=== PATIENT | female | born 1970 ===

== ENCOUNTER → 2019-11-22 14:32 | Outpatient (BNVA) | payer MEDICAID, SELFPAY | PROVIDERS: Visit Provider Physician Assistant | DX: K90.49 Malabsorption due to intolerance, not elsewhere classified (principal); Z98.84 Bariatric surgery status | CPT/HCPCS: 99215; Q3014 ==

== ENCOUNTER → 2019-12-12 08:26 | Outpatient (BNVA) | payer MEDICAID, SELFPAY | PROVIDERS: Visit Provider Dietitian, Registered | DX: Z76.89 Persons encountering health services in other specified circumstances (principal) ==

== ENCOUNTER 2020-04-12 08:46 | Outpatient (REF) | payer MEDICAID, SELFPAY ==
--- NOTE | 2020-04-12 09:00 | EMG_ITS ---
Bilateral median and ulnar motor and sensory studies were performed. Bilateral radial sensory studies were performed and paraspinal muscles were tested with a needle. IMPRESSION: This was an unremarkable study with no evidence of entrapment neuropathy or radiculopathy. MD THIERNO Steele/[place] / [id number]
== END 2020-04-12 08:47 | disposition home or self-care (01) ==
LOC: HO.NEURO 08:46
PROVIDERS: PCP Internal Medicine; Visit Provider Internal Medicine
DX: M79.641 Pain in right hand (principal); M79.642 Pain in left hand
CPT/HCPCS: 95886; 95911

== ENCOUNTER → 2020-11-01 12:42 | Outpatient (BNVA) | payer MEDICAID, SELFPAY | PROVIDERS: PCP Internal Medicine; Referring Provider Surgery; Visit Provider Physician Assistant Surgical | DX: E66.01 Morbid (severe) obesity due to excess calories (principal); Z68.41 Body mass index [BMI] 40.0-44.9, adult; Z98.84 Bariatric surgery status | CPT/HCPCS: 99212 ==

== ENCOUNTER 2020-11-19 12:52 | Outpatient (REF) | payer MEDICAID, SELFPAY ==
--- NOTE | ~2020-11-19 | US_ITS ---
EXAMINATION: US PELVIS CLINICAL INFORMATION: Right lower quadrant tenderness. Patient is post hysterectomy. COMPARISON: Previous exam most recent November 2018 TECHNIQUE: Ultrasound of the pelvis is performed using both transabdominal and transvaginal transducers. Transvaginal imaging is performed due to inadequate visualization transabdominally. FINDINGS: The uterus has been removed. The ovaries are not seen. No pelvic mass is seen. There is no ascites. US/US pelvic and transvaginal IMPRESSION: Post hysterectomy. Ovaries not seen. No pelvic mass or ascites.
== END 2020-11-19 12:53 | disposition home or self-care (01) ==
LOC: HO.US 12:52
PROVIDERS: PCP Internal Medicine; Visit Provider Advanced Practice Midwife
DX: R10.813 Right lower quadrant abdominal tenderness (principal)
CPT/HCPCS: 76830; 76856

== ENCOUNTER 2020-12-05 08:52 | Outpatient (REF) | payer MEDICAID, SELFPAY ==
--- NOTE | ~2020-12-05 | MM_ITS ---
EXAMINATION: MM SCREENING DIGITAL BREAST TOMOSYNTHESIS, BILATERAL CLINICAL INFORMATION: Screening. Asymptomatic. The lifetime risk of breast cancer based on the Tyrer-Cuzick Model is 8%. COMPARISON: Mammography: 01/26/2017 (new baseline). TECHNIQUE: Digital breast tomosynthesis is performed in both the craniocaudal and mediolateral oblique views along with computer-aided detection (CAD). Synthesized 2D images are generated from the tomosynthesis. FINDINGS: There are scattered areas of fibroglandular density (ACR BI-RADS breast composition Category b). There are no significant masses, abnormal calcifications, or other abnormalities. The axilla and skin contours are unremarkable. MM/MM tomosynthesis screening BI IMPRESSION: No mammographic evidence of malignancy. ASSESSMENT: BI-RADS 1: Negative RECOMMENDATION: Routine annual mammography screening. This patient's information was entered into a reminder system with a target due date for their next mammogram.
== END 2020-12-05 08:53 | disposition home or self-care (01) ==
LOC: HO.MAMMO 08:52
PROVIDERS: Visit Provider Advanced Practice Midwife
DX: Z12.31 Encounter for screening mammogram for malignant neoplasm of breast (principal); R10.813 Right lower quadrant abdominal tenderness
CPT/HCPCS: 77063; 77067

== ENCOUNTER → 2020-12-25 14:20 | Outpatient (BNVA) | payer MEDICAID, SELFPAY | PROVIDERS: PCP Internal Medicine; Referring Provider Internal Medicine; Visit Provider Physician Assistant Surgical | DX: E66.9 Obesity, unspecified (principal); Z3A.34 34 weeks gestation of pregnancy | CPT/HCPCS: 99212 ==

== ENCOUNTER → 2021-01-29 10:33 | Outpatient (BNVA) | payer MEDICAID, SELFPAY | PROVIDERS: PCP Internal Medicine; Visit Provider Nurse Practitioner Family | DX: M54.2 Cervicalgia (principal); M79.18 Myalgia, other site | CPT/HCPCS: 99202 ==

== ENCOUNTER 2021-02-04 09:55 | Outpatient (REF) | payer MEDICAID, SELFPAY ==
--- NOTE | ~2021-02-04 | XR_ITS ---
EXAMINATION: XR HAND, LEFT CLINICAL INFORMATION: Pain in left hand and fingers COMPARISON: None TECHNIQUE: PA, lateral, and oblique views of the left hand. FINDINGS: The bones and soft tissues are normal. No fracture. Alignment is anatomic. Joint spaces are maintained. No erosions or soft tissue calcifications. XR/XR hand LT min 3V IMPRESSION: Unremarkable plain radiographs of the left hand.
== END 2021-02-04 09:56 | disposition home or self-care (01) ==
LOC: HO.XRAY 09:55
PROVIDERS: Visit Provider Internal Medicine
DX: M79.645 Pain in left finger(s) (principal)
CPT/HCPCS: 73130

== ENCOUNTER → 2021-04-19 11:07 | Outpatient (BNVA) | payer MEDICAID, SELFPAY | PROVIDERS: PCP Internal Medicine; Visit Provider Nurse Practitioner Family | DX: M54.2 Cervicalgia (principal); M79.18 Myalgia, other site | CPT/HCPCS: 20552; 99212 ==

== ENCOUNTER 2021-05-22 08:17 | Outpatient (REF) | payer MEDICAID, SELFPAY ==
--- NOTE | 2021-05-22 08:20 | EMG_ITS ---
This is a 50-year-old woman with generalized pain, numbness, tingling in the left upper and lower extremity only for few months. She has been undergoing medical and rheumatological workup. Neurological exam is normal. IMPRESSION: Rule out neuropathy. Nerve conduction EMG study: Normal electrodiagnostic study of the left upper and lower extremity with no evidence of carpal tunnel syndrome, nerve entrapment, or generalized peripheral neuropathy. The patient refused needle EMG study after the 1st muscle was tested in the L4 distribution. MD KIEL Anthony/[place] / [phone]
== END 2021-05-22 08:18 | disposition home or self-care (01) ==
LOC: HO.NEURO 08:17
PROVIDERS: PCP Family Medicine; Visit Provider Family Medicine
DX: R20.2 Paresthesia of skin (principal)
CPT/HCPCS: 95885; 95912

== ENCOUNTER → 2021-10-25 14:17 | Outpatient (BNVA) | payer MEDICAID, SELFPAY | PROVIDERS: PCP Internal Medicine; Visit Provider Nurse Practitioner | DX: R10.10 Upper abdominal pain, unspecified (principal); R11.2 Nausea with vomiting, unspecified; R19.7 Diarrhea, unspecified; K80.20 Calculus of gallbladder without cholecystitis without obstruction; K58.2 Mixed irritable bowel syndrome | CPT/HCPCS: 99202; 99212 ==

== ENCOUNTER 2021-10-28 09:00 | Outpatient (REF) | payer MEDICAID, SELFPAY ==
[2021-10-28 09:15] LABS: MANUAL DIFF FLAG NO
[2021-10-28 09:36] LABS: Basophils Absolute Auto 0.1 X10*3/uL (0.0-0.2); Eosinophils Absolute Auto 0.1 X10*3/uL (0.0-0.4); Eosinophils Percent Auto 2.4 % (0-4); Hematocrit 42.5 % (37.0-47.0); Hemoglobin 13.7 g/dl (12.0-16.0); Imm Gran Abs Auto 0.01 X10*3/uL (0.00-0.03); Imm Gran Pct Auto 0.2 % (0.0-0.4); Lymphocytes Absolute Auto 1.9 X10*3/uL (1.2-4.9); Lymphocytes Percent Auto 32.8 % (20-40); Mean Corpuscular HGB Conc 32.2 g/dl (31.0-35.0); Mean Corpuscular Hemoglobin 30.3 pg (27.0-33.0); Mean Platelet Volume 10.2 fL (9.4-12.3); Monocytes Absolute Auto 0.4 X10*3/uL (0.1-1.2); Monocytes Percent Auto 6.5 % (2-11); Neutrophils Absolute Auto 3.3 x10*3/uL (2.0-8.3); Neutrophils Percent Auto 57.1 % (45-73); Platelet Count 241 X10*3/uL (160-400); Red Blood Count 4.52 X10*6/uL (4.20-5.50); Red Cell Distribution Width 12.6 % (11.0-16.0); White Blood Count 5.8 X10*3/uL (4.8-10.8)
[2021-10-28 10:02] LABS: Alanine Aminotransferase 23 U/L (0-31); Albumin Level 4.2 g/dL (3.5-5.0); Alkaline Phosphatase 101 U/L (39-117); Amylase 61 U/L (28-100); Anion Gap 15 (12-20); Aspartate Amino Transferase 17 U/L (5-31); Bilirubin Total 1.2 mg/dL (0.0-1.0); Blood Urea Nitrogen 14 mg/dL (9-16); Calcium 9.6 mg/dL (8.4-10.2); Carbon Dioxide 30 mmol/L (22-29); Chloride 107 mmol/L (96-108); Estimated Glomerular Filt Rate > 60; Glucose Random 126 mg/dL (60-115); Lipase 43 U/L (8-78); Potassium 4.5 mmol/L (3.3-5.1); Sodium 147 mmol/L (135-145); Total Protein 7.2 g/dL (6.5-8.0)
[2021-10-28 10:25] LABS: TSH reflex Free T4 0.85 uIU/mL (0.32-4.0)
[2021-10-30 21:07] LABS: Transglutaminase Ab IgG 1.5 U/mL; Transglutaminase IgA <1.0 U/mL
== END 2021-10-28 09:01 | disposition home or self-care (01) ==
LOC: HO.LAB 09:00
PROVIDERS: PCP Internal Medicine; Visit Provider Nurse Practitioner
DX: R10.10 Upper abdominal pain, unspecified (principal); R11.2 Nausea with vomiting, unspecified; R19.7 Diarrhea, unspecified
CPT/HCPCS: 36415; 80053; 82150; 83690; 84443; 85025; 86140; 86364

== ENCOUNTER 2021-10-29 15:30 | Outpatient (REF) | payer MEDICAID, SELFPAY ==
[2021-10-30 12:34] LABS: Adenovirus F 40/41 Not Detected (Not Detect.); Astrovirus Not Detected (Not Detect.); Campylobacter Not Detected (Not Detect.); Cryptosporidium Not Detected (Not Detect.); Cyclospora cayetanensis Not Detected (Not Detect.); E. coli EAEC Not Detected (Not Detect.); E. coli EPEC Not Detected (Not Detect.); E. coli ETEC Not Detected (Not Detect.); E. coli STEC Not Detected (Not Detect.); Entamoeba histolytica Not Detected (Not Detect.); Giardia lamblia Not Detected (Not Detect.); Norovirus GI/GII Not Detected (Not Detect.); Plesiomonas shigelloides Not Detected (Not Detect.); Rotavirus A Not Detected (Not Detect.); Salmonella Not Detected (Not Detect.); Sapovirus Not Detected (Not Detect.); Shigella sp./EIEC Not Detected (Not Detect.); Vibrio Not Detected (Not Detect.); Vibrio Cholerae Not Detected (Not Detect.); Yersinia enterocolitica Not Detected (Not Detect.)
[2021-10-30 13:18] LABS: CDiff Gene PCR NEGATIVE (Negative)
[2021-11-05 18:11] LABS: Pancreatic Elastase-1 >500 mcg/g
== END 2021-10-29 15:31 | disposition home or self-care (01) ==
LOC: HO.LNP 15:30
PROVIDERS: Visit Provider Nurse Practitioner
DX: R10.10 Upper abdominal pain, unspecified (principal); R11.2 Nausea with vomiting, unspecified; R19.7 Diarrhea, unspecified
CPT/HCPCS: 82656; 87493; 87507

== ENCOUNTER → 2021-10-31 11:12 | Outpatient (BNVA) | payer MEDICAID, SELFPAY | PROVIDERS: PCP Internal Medicine; Visit Provider Physician Assistant Surgical | DX: E66.9 Obesity, unspecified (principal); Z98.84 Bariatric surgery status; Z68.32 Body mass index [BMI] 32.0-32.9, adult | CPT/HCPCS: 99212 ==

== ENCOUNTER → 2021-11-11 10:57 | Outpatient (REF) | payer MEDICAID, SELFPAY ==
--- NOTE | ~2021-11-11 | NM_ITS ---
EXAMINATION: BILIARY TRACT IMAGING STUDY WITH CCK ALTERNATIVE (SUPPLEMENT-STIMULATED CHOLESCINTIGRAPHY). CLINICAL INFORMATION: Upper abdominal pain.. COMPARISON: None. TECHNIQUE: Serial gamma scintillation camera images were obtained over the abdomen for a total observation period of 60 minutes following the intravenous administration of 5 mCi Tc-99m mebrofenin. FINDINGS: There is good concentration of activity in the liver by 5 minutes post injection. Biliary activity is visualized by 15 minutes. The gallbladder is well visualized by 25 minutes. Small bowel is well visualized by 18 minutes. At 60 minutes post radiopharmaceutical injection, following injection of 8 ounces of Ensure, an additional 60 minutes of images were obtained. There is good emptying of the gallbladder. By the end of the study there is good clearance of activity from the liver and visualization of diffuse small bowel activity. The calculated gallbladder ejection fraction is 66% (normal gallbladder ejection fraction is greater than 33%). Please note that due to non-availability of CCK, alternative methodology using a lactose-free Fatty-meal food supplement (8 ounces of Ensure) was used (Reference article: Journal of nuclear medicine 2003; 44:7800-7352). NM/NM hepatobiliary wo pharm IMPRESSION: Visualization of the gallbladder is evidence of a patent cystic duct and strong evidence against the diagnosis of acute cholecystitis. The common bile duct is patent. Gallbladder emptying and ejection fraction are normal. Liver function appears normal.
== END ==
LOC: HO.NUCMED 10:57
PROVIDERS: PCP Internal Medicine; Visit Provider Nurse Practitioner
DX: R10.10 Upper abdominal pain, unspecified (principal); K80.20 Calculus of gallbladder without cholecystitis without obstruction
CPT/HCPCS: 78226; A9537

== ENCOUNTER → 2021-11-20 13:31 | Outpatient (BNVA) | payer MEDICAID, SELFPAY | PROVIDERS: PCP Internal Medicine; Visit Provider Nurse Practitioner | DX: K58.2 Mixed irritable bowel syndrome (principal); K80.20 Calculus of gallbladder without cholecystitis without obstruction; R19.7 Diarrhea, unspecified; R11.2 Nausea with vomiting, unspecified; R10.10 Upper abdominal pain, unspecified | CPT/HCPCS: 99212 ==

== ENCOUNTER → 2021-12-25 11:13 | Outpatient (BNVA) | payer MEDICAID, SELFPAY | PROVIDERS: PCP Internal Medicine; Visit Provider Physician Assistant Surgical | DX: E66.9 Obesity, unspecified (principal); Z68.33 Body mass index [BMI] 33.0-33.9, adult; Z98.84 Bariatric surgery status | CPT/HCPCS: 99212 ==

== ENCOUNTER 2022-01-01 12:39 | Outpatient (REF) | payer MEDICAID, SELFPAY ==
--- NOTE | ~2022-01-01 | XR_ITS ---
EXAMINATION: XR SHOULDER, RIGHT CLINICAL INFORMATION: Right shoulder pain, limited range of motion. COMPARISON: None TECHNIQUE: AP external rotation, Grashey, scapular Y, and axillary views of the right shoulder. FINDINGS: The bones and soft tissues are normal. No fracture. Glenohumeral and acromioclavicular alignment is anatomic with normal joint space. No abnormal soft tissue calcifications. XR/XR shoulder RT min 2V IMPRESSION: Unremarkable right shoulder.
[2022-01-01 14:55] LABS: Ferritin 45 ng/mL (10-250); Insulin 4 uU/mL (2-29)
[2022-01-01 15:03] LABS: Cholesterol 207 mg/dL; HDL Cholesterol 51 mg/dL; Iron 109 mcg/dL (30-160); LDL Cholesterol Calculated 144 mg/dl; Percent Iron Saturation 33 % (15-50); Total Iron Binding Capacity 330 mcg/dL (228-428); Triglycerides 63 mg/dL; Unsaturated Iron Binding 221 ug/dL
[2022-01-01 15:29] LABS: Folate > 20.0 ng/mL (> or = 4.0); Vitamin B12 380 pg/mL (200-900)
[2022-01-01 15:35] LABS: Vitamin D 25-OH Total 27.7 ng/mL (>30)
[2022-01-01 16:10] LABS: Estimated Average Glucose 128 mg/dL; Hemoglobin A1c % 6.1 %
[2022-01-02 14:16] LABS: Calcium (PTHI) 9.6 mg/dL (8.6-10.4); PTHI 53 pg/mL (16-77)
[2022-01-05 17:15] LABS: Vitamin A 37 mcg/dL (38-98)
[2022-01-06 09:47] LABS: Zinc 89 mcg/dL (60-130)
[2022-01-07 11:52] LABS: Vitamin B1 13 nmol/L (8-30)
== END 2022-01-01 12:40 | disposition home or self-care (01) ==
LOC: HO.XRAY 12:39
PROVIDERS: Absent Provider Internal Medicine; PCP Internal Medicine; Visit Provider Physician Assistant Surgical
DX: M25.511 Pain in right shoulder (principal); Z98.84 Bariatric surgery status
CPT/HCPCS: 36415; 73030; 80061; 82306; 82607; 82728; 82746; 83036; 83525; 83540; 83970; 84425; 84590; 84630

== ENCOUNTER → 2022-01-15 11:27 | Outpatient (BNVA) | payer MEDICAID, SELFPAY | PROVIDERS: PCP Internal Medicine; Visit Provider Nurse Practitioner | DX: K58.2 Mixed irritable bowel syndrome (principal); K80.20 Calculus of gallbladder without cholecystitis without obstruction; R11.2 Nausea with vomiting, unspecified | CPT/HCPCS: 99212 ==

== ENCOUNTER 2022-01-25 11:36 | Emergency (ER) | payer MEDICAID, SELFPAY ==
[2022-01-25 11:40] VITALS: BP 130/71; PULSE 80; RESP 18; O2SAT 98; BMI 34.0
--- NOTE | 2022-01-25 12:36 | ED_ITS ---
HPI - Back Pain/Injury General Chief Complaint: Back Pain/Injury Stated Complaint: back pain Time Seen by Provider: 01/25/22 11:49 Source: patient and family Mode of arrival: ambulatory Limitations: language barrier History of Present Illness HPI Narrative: 51-year-old Singaporean-speaking female with a past medical history of diabetes, irritable bowel syndrome, obesity, cervicalgia, and chronic low back pain presents to the emergency department today, with her , for complaints right sided low back pain that radiates down her right leg and into the right side of her neck. She states yesterday morning she was stretching with her arms above her head and felt pain in the right low back while stretching and she has had continued pain since. She reports taking 800 mg of ibuprofen at 10:30 a.m. with no relief in symptoms. She denies any known trauma, urinary hesitancy, urinary incontinence, fecal incontinence, or changes in her bowel patterns. She denies any fever, chills, new numbness, tingling, or weakness in her lower extremities. She reports pain improves with standing and worsens with leaning to sit. MD elicited complaint: back pain Pertinent past history: prior back pain Onset (ago): day(s) (2) Timing: constant Severity: moderate Pain scale (0-10): 6 Quality: dull and aching Location: right lower back Radiation: right upper leg and neck Exacerbating factors: movement (bending to sit or leaning to stand) Relieving factors: none Context: other (stretching) Associated symptoms: denies other symptoms Treatments prior to arrival: NSAIDS Work related injury: No Related Data Home Medications Medication Instructions Recorded Confirmed albuterol sulfate 90 mcg/actuation 2 puff inhalation QID 11/22/19 12/25/21 aerosol inhaler fluticasone propionate 50 1 spray intranasal DAILY 11/22/19 12/25/21 mcg/actuation nasal spray,suspension montelukast 10 mg tablet 10 mg PO BEDTIME 11/22/19 12/25/21 multivitamin 1 cap PO DAILY 11/22/19 12/25/21 gabapentin 600 mg tablet 600 mg PO DAILY 11/01/20 12/25/21 alcohol swabs pad topical BID 10/25/21 12/25/21 atorvastatin 40 mg tablet 40 mg PO DAILY 10/25/21 12/25/21 blood sugar diagnostic (FreeStyle #10 ea 10/25/21 12/25/21 Lite Strips) canagliflozin 100 mg tablet 100 mg PO QAM 10/25/21 12/25/21 (Invokana) cholecalciferol (vitamin D3) 50 50 mcg PO DAILY 10/25/21 12/25/21 mcg (2,000 unit) capsule ciprofloxacin 0.3 %-dexamethasone 0 drp otic (ears) 10/25/21 12/25/21 0.1 % ear drops,suspension (Ciprodex) cyclobenzaprine 10 mg tablet 10 mg PO TID 10/25/21 12/25/21 estradiol 0.01% (0.1 mg/gram) 1 g vaginal 2XW 10/25/21 12/25/21 vaginal cream famotidine 20 mg tablet 20 mg PO BID 10/25/21 12/25/21 fluticasone propionate 110 1 puff inhalation BID 10/25/21 12/25/21 mcg/actuation HFA aerosol inhaler (Flovent HFA) glipizide 5 mg tablet, extended 5 mg PO DAILY 10/25/21 12/25/21 release 24 hr hydrochlorothiazide 25 mg tablet 25 mg PO DAILY 10/25/21 12/25/21 lancets 28 gauge (FreeStyle #100 ea 10/25/21 12/25/21 Lancets) lorazepam 0.5 mg tablet 0.5 mg PO DAILY PRN anxiety 10/25/21 12/25/21 meclizine 25 mg tablet 25 mg PO TID PRN dizziness 10/25/21 12/25/21 metformin 500 mg tablet,extended 1,000 mg PO BID 10/25/21 12/25/21 release 24 hr polyvinyl alcohol 1.4 % eye drops 1 drp ophthalmic (eye) TID-QID 10/25/2112/25 (Artificial Tears (polyvinyl alcohol)) sumatriptan succinate 50 mg tablet 50 mg PO 10/25/21 12/25/21 valacyclovir 500 mg tablet 0 mg PO 10/25/21 12/25/21 diclofenac sodium 1 % topical gel 2 g topical QID 01/15/22 melatonin 5 mg tablet 5 - 10 mg PO BEDTIME PRN insomnia 01/15/22 venlafaxine 75 mg capsule,extended 75 mg PO DAILY PRN depressive 01/15/22 release 24 hr disorder Previous Rx's Medication Instructions Recorded lidocaine 5 % topical patch 1 patch topical DAILY #15 ea 04/22/21 peg 3350-electrolytes 236 240 ml PO Q10M 1 day #4,000 mL 11/20/21 gram-22.74 gram-6.74 gram-5.86 gram solution (Golytely) vitamin A palmitate 10,000 unit 10,000 unit PO DAILY #90 caps 01/13/22 capsule dicyclomine 20 mg tablet 20 mg PO QID 30 days #120 tabs 01/15/22 linaclotide 72 mcg capsule 72 mcg PO QAM #30 caps 01/15/22 (Linzess) capsaicin 0.025 % topical patch 1 patch topical BID PRN pain #10 ea 01/25/22 (Capsicum) cyclobenzaprine 5 mg tablet 5 mg PO TID PRN muscle spasm #14 01/25/22 tabs naproxen 500 mg tablet 500 mg PO BID PRN pain #30 tabs 01/25/22 Allergies Allergy/AdvReac Type Severity Reaction Status Date / Time Penicillins [PCN] Allergy Intermediate HIVES/RASH Verified 01/15/22 11:37 Mold Allergy Unknown Rash Uncoded 10/31/21 11:25 Review of Systems Review of Systems: In addition to documented HPI above, the additional ROS was obtained: CONSTITUTIONAL: Denies fever, chills, weakness, fatigue, headache, night sweats, or weight loss EYES: Denies vision changes, eye pain, swelling, redness, foreign body, discharge ENT: Hearing normal. Denies sore throat, swallowing difficulty. congestion, ear pain, no hoarseness or CV: Denies chest pain or epigastric pain. No edema, palpitations, or dyspnea on exertion RESP: Denies shortness of breath. Denies cough, wheezing, dyspnea. Denies smoke exposure GI: .Denies abdominal pain. Denies nausea, vomiting, constipation or diarrhea. No melena or hematochezia. : Denies irregular bleeding, and dysuria, urinary frequency, urinary incontinence/retention, urgency. Denies flank pain, hematuria MSK: Denies recent trauma, change in gait, myalgias, joint swelling or pain SKIN: Denies no lesions, rashes, or sores NEURO: Denies new numbness, tingling, dizziness, paresthesias or weakness. No loss of consciousness. Denies headache ENDOCRINE: Denies unexpected weight loss. Denies polyuria, polydipsia. No temperature intolerance PMFSH Past Medical History Attestation statement: The following information was validated with the patient. Source: old records reviewed and obtained from family Medical History Anxiety Arthritis Asthma delivery delivered Diabetes H/O neoplasm of uncertain behavior of ovary Heart murmur Left shoulder pain Malabsorption due to intolerance, not elsewhere classified Neck pain Obesity (BMI 30.0-34.9) Ovarian tumor Ovary removal, prophylactic Pelvic fracture Surgical History S/P laparoscopic sleeve gastrectomy S/P partial hysterectomy Family History Family History Father Hypertension Parkinson's disease Mother Hypertension Diabetes Heart murmur Depression Sister Diabetes Arthritis Son No problems noted. Son No problems noted. Maternal Grandmother Heart disease Social History Social History Alcohol intake: current Alcohol intake frequency: a few times a week Patient Tobacco Use Status: Former Tobacco user Cigarettes Per Day: 2 Advance Directives: No Advance Directives Information Provided: No Physical Exam Vital Signs: Vital Signs: Last Vital Signs Pulse 80 01/25/22 11:40 Resp 18 01/25/22 11:40 BP 130/71 01/25/22 11:40 Pulse Ox 98 01/25/22 11:40 O2 Del Method 01/25/22 11:40 BMI result Body Mass Index 34.0 Const: General: cooperative, alert and awake Nutritional Appearance: well nourished Orientation/consciousness: patient oriented x3 Limitations: language barrier HEENT: Head: Yes normal to inspection, Yes normocephalic and Yes atraumatic Ears: hearing grossly normal bilaterally and external ears normal General nose exam: Normal external nose present and Normal nares present Face and sinus: Yes normal facial exam and Yes face symmetric Eyes: General: appearance normal, both eyes and all related structures Visual Villarreal: normal visual villarreal by confrontation Alignment and Position: alignment normal Periorbital: periorbital findings normal Eyelids: Yes eyelids normal Conjunctivae: conjunctivae normal Sclerae: sclerae normal Corneas: corneas normal Pupils: Equal, round and reactive pupils present EOM: EOMs intact bilaterally Neck: Neck: Yes normal visual inspection and Yes full ROM Chest: Chest palpation & inspection: normal inspection of the chest Resp: Effort & Inspection: normal respiratory effort and not labored Auscultation: clear to auscultation bilaterally Cardio: Rate: regular rate Rhythm: regular rhythm : General: Yes no CVA tenderness Back/Spine/Pelvis: Back: no CVA tenderness, No erythema, No warmth, No ecchymosis and back tenderness Cervical Spine: cervical ROM normal Thoracic/Lumbar Spine: No kyphosis, pain with thoraco-lumbar ROM, No Thoracic/lumbar scoliosis and No lumbar spinal tenderness Skin: General skin exam: no rashes or lesions noted Neuro: General: patient oriented x3 and moves all extremities Cranial nerves: Yes Equal, round and reactive pupils present Cognition (Neuro): normal cognition Gait exam (Neuro): Antalgic gait present Motor exam (neuro): Normal motor muscle tone present throughout Extrem: General: Yes normal to inspection, Yes full ROM and Yes capillary refill normal Medications Administered Discontinued Medications Generic Name Dose Route Start Last Admin Trade Name Freq PRN Reason Stop Dose Admin Cyclobenzaprine HCl 5 mg 01/25/22 14:06 01/25/22 14:12 Cyclobenzaprine Hcl 5 Mg Tablet PO 01/25/22 14:07 5 mg ONCE ONE Administration Medical Decision Making Medical Decision Making [facility] Narrative: 51-year-old Singaporean-speaking female with a past medical history of diabetes, irritable bowel syndrome, obesity, cervicalgia, and chronic low back pain presents to the emergency department today, with her , for complaints right sided low back pain that started while stretching that radiates down her right leg and into the right side of her neck. Physical exam with no step-offs or red flag symptoms. Low back pain consistent with muscle strain. Low suspicion of cauda equina, epidural abscess, lumbar stenosis. Pt is safe for discharge with the symptom management. Prescriptions written for Flexeril, naproxen, and capsaicin topical patches. HPI, physical exam, plan discussed with patient and family with no answer questions at this time. Educated to return to the emergency department with new numbness, tingling, weakness, falls, fever, chills, or any other concerning symptoms. Recommended follow-up with her primary care provider for further treatment and management. 1400: Flexeril dose given in the ED for pain management prior to discharge. Discharge Plan Discharge Clinical Impression: Muscle strain Patient Disposition: Home, Self-Care Instructions: Musculoskeletal Pain (ED) Additional Instructions: Prescriptions written for Flexeril, naproxen, and capsaicin topical patches for symptom management. Please return to the emergency department with new numbness, tingling, weakness, falls, fever, chills, or any other concerning symptoms. Recommended to follow-up with her primary care provider for further treatment and management. Prescriptions: New capsaicin [Capsicum] 0.025 % adhesive patch,medicated 1 patch topical BID PRN (Reason: pain) Qty: 10 0RF Rx Instructions: do not leave patch on for more than 8 hrs cyclobenzaprine 5 mg tablet 5 mg PO TID PRN (Reason: muscle spasm) Qty: 14 0RF naproxen 500 mg tablet 500 mg PO BID PRN (Reason: pain) Qty: 30 0RF No Action lidocaine 5 % adhesive patch,medicated 1 patch topical DAILY Qty: 15 0RF Rx Instructions: leave on most painful area for up to 12 hrs vitamin A palmitate 10,000 unit capsule 10,000 unit PO DAILY Qty: 90 3RF fluticasone propionate 50 mcg/actuation spray,suspension 1 spray intranasal DAILY Rx Instructions: administer into each nostril albuterol sulfate 90 mcg/actuation HFA aerosol inhaler 2 puff inhalation QID montelukast 10 mg tablet 10 mg PO BEDTIME multivitamin Capsule 1 cap PO DAILY Label Comments: gummy gabapentin 600 mg tablet 600 mg PO DAILY peg 3350-electrolytes [Golytely] 236-22.74-6.74 -5.86 gram recon soln 240 ml PO Q10M 1 Days Qty: 4000 0RF Rx Instructions: until fecal effluent is clear; do not exceed a total volume of 2,000 mL diclofenac sodium 1 % gel 2 g topical QID melatonin 5 mg tablet 5 - 10 mg PO BEDTIME PRN (Reason: insomnia) venlafaxine 75 mg capsule,extended release 24hr 75 mg PO DAILY PRN (Reason: depressive disorder) Linzess 72 mcg capsule 72 mcg PO QAM Qty: 30 6RF dicyclomine 20 mg tablet 20 mg PO QID 30 Days Qty: 120 6RF glipizide 5 mg tablet extended release 24hr 5 mg PO DAILY ciprofloxacin-dexamethasone [Ciprodex] 0.3-0.1 % drops,suspension 0 drp otic (ears) meclizine 25 mg tablet 25 mg PO TID PRN (Reason: dizziness) metformin 500 mg tablet extended release 24 hr 1,000 mg PO BID cholecalciferol (vitamin D3) 50 mcg (2,000 unit) capsule 50 mcg PO DAILY lorazepam 0.5 mg tablet 0.5 mg PO DAILY PRN (Reason: anxiety) famotidine 20 mg tablet 20 mg PO BID atorvastatin 40 mg tablet 40 mg PO DAILY valacyclovir 500 mg tablet 0 mg PO Invokana 100 mg tablet 100 mg PO QAM cyclobenzaprine 10 mg tablet 10 mg PO TID alcohol swabs Pads, Medicated topical BID sumatriptan succinate 50 mg tablet 50 mg PO (DME) FreeStyle Lite Strips Strip See Rx Instructions .ROUTE BID Qty: 10 Rx Instructions: As directed fluticasone propionate [Flovent HFA] 110 mcg/actuation HFA aerosol inhaler 1 puff inhalation BID hydrochlorothiazide 25 mg tablet 25 mg PO DAILY polyvinyl alcohol [Artificial Tears (polyvin alc)] 1.4 % drops 1 drp ophthalmic (eye) TID-QID (DME) lancets [FreeStyle Lancets] 28 gauge misc See Rx Instructions .ROUTE BID Qty: 100 Rx Instructions: As directed estradiol 0.01 % (0.1 mg/gram) cream 1 g vaginal 2XW Referrals: Winsome Glass MD [Primary Care Provider] - Stand Alone Forms: Work/School Release Interventions: ED Discharge Assessment Last Done: 01/25/22 14:14 Discharge Date/Time: 01/25/22 14:15 Print Language: Singaporean
[2022-01-25] MEDS: Cyclobenzaprine HCl 5 MG TABLET PO (14:12)
== END 2022-01-25 14:15 | disposition home or self-care (01) ==
PROVIDERS: Emergency Provider Emergency Medicine; PCP Internal Medicine
DX: S39.012A Strain of muscle, fascia and tendon of lower back, initial encounter (principal); X50.9XXA Other and unspecified overexertion or strenuous movements or postures, initial encounter; Y93.9 Activity, unspecified; Y92.019 Unspecified place in single-family (private) house as the place of occurrence of the external cause; Y99.9 Unspecified external cause status
CPT/HCPCS: 99283

== ENCOUNTER 2022-02-26 08:57 | Outpatient (REF) | payer MEDICAID, SELFPAY ==
[2022-02-26 12:48] LABS: Erythrocyte Sedimentation Rate 14 MM/HR (0-20)
[2022-02-26 13:25] LABS: C Reactive Protein 0.57 mg/dL (< or = 0.50)
== END 2022-02-26 08:58 | disposition home or self-care (01) ==
LOC: HO.LAB 08:57
PROVIDERS: PCP Internal Medicine; Visit Provider Nurse Practitioner Family
DX: M25.50 Pain in unspecified joint (principal); M79.7 Fibromyalgia
CPT/HCPCS: 36415; 85652; 86140; 99212

== ENCOUNTER 2022-03-11 12:27 | Emergency (ER) | payer MEDICAID, SELFPAY ==
--- NOTE | ~2022-03-11 | XR_ITS ---
EXAMINATION: XR CHEST 2 VIEW CLINICAL INFORMATION: Chest pain COMPARISON: 09/29/2017 TECHNIQUE: PA and lateral views of the chest obtained. FINDINGS: The lungs are clear. There are no pleural effusions. The cardiomediastinal silhouette is normal. No rib fracture, pneumothorax or bone lesion is evident. Surgical clips are evident in the epigastric region. XR/XR chest 2V IMPRESSION: No active cardiopulmonary disease.
--- NOTE | 2022-03-11 12:30 | ECG_ITS ---
Test Reason : CP Blood Pressure : / mmHG Vent. Rate : 061 BPM Atrial Rate : 061 BPM P-R Int : 158 ms QRS Dur : 084 ms QT Int : 418 ms P-R-T Axes : 051 005 001 degrees QTc Int : 420 ms Normal sinus rhythm Normal ECG When compared with ECG of 05-JUL-2018 14:55, No significant change was found Referred By: Generic ED Physician Electronically Signed By:PHIL DRAKE
[2022-03-11 12:46] VITALS: BP 118/64; PULSE 63; RESP 18; TEMP 35.9; O2SAT 98; BMI 34.9
--- NOTE | 2022-03-11 12:46 | ED_ITS ---
HPI - Chest Pain General Chief Complaint: Chest Pain Stated Complaint: chest pain Time Seen by Provider: 03/11/22 17:11 Related Data Home Medications Medication Instructions Recorded Confirmed albuterol sulfate 90 mcg/actuation 2 puff inhalation QID 11/22/19 02/26/22 aerosol inhaler fluticasone propionate 50 1 spray intranasal DAILY 11/22/19 02/26/22 mcg/actuation nasal spray,suspension montelukast 10 mg tablet 10 mg PO BEDTIME 11/22/19 02/26/22 multivitamin 1 cap PO DAILY 11/22/19 02/26/22 alcohol swabs pad topical BID 10/25/21 02/26/22 atorvastatin 40 mg tablet 40 mg PO DAILY 10/25/21 02/26/22 blood sugar diagnostic (Anibal #10 ea 10/25/21 02/26/22 Lite Strips) canagliflozin 100 mg tablet 100 mg PO QAM 10/25/21 02/26/22 (Invokana) cholecalciferol (vitamin D3) 50 50 mcg PO DAILY 10/25/21 02/26/22 mcg (2,000 unit) capsule ciprofloxacin 0.3 %-dexamethasone 0 drp otic (ears) 10/25/21 02/26/22 0.1 % ear drops,suspension (Ciprodex) cyclobenzaprine 10 mg tablet 10 mg PO TID 10/25/21 02/26/22 estradiol 0.01% (0.1 mg/gram) 1 g vaginal 2XW 10/25/21 02/26/22 vaginal cream famotidine 20 mg tablet 20 mg PO BID 10/25/21 02/26/22 fluticasone propionate 110 1 puff inhalation BID 10/25/21 02/26/22 mcg/actuation HFA aerosol inhaler (Flovent HFA) glipizide 5 mg tablet, extended 5 mg PO DAILY 10/25/21 02/26/22 release 24 hr hydrochlorothiazide 25 mg tablet 25 mg PO DAILY 10/25/21 02/26/22 lancets 28 gauge (Jennyyle #100 ea 10/25/21 02/26/22 Lancets) lorazepam 0.5 mg tablet 0.5 mg PO DAILY PRN anxiety 10/25/21 02/26/22 meclizine 25 mg tablet 25 mg PO TID PRN dizziness 10/25/21 02/26/22 metformin 500 mg tablet,extended 1,000 mg PO BID 10/25/21 02/26/22 release 24 hr polyvinyl alcohol 1.4 % eye drops 1 drp ophthalmic (eye) TID-QID 10/25/21 02/26/22 (Artificial Tears (polyvinyl alcohol)) sumatriptan succinate 50 mg tablet 50 mg PO 10/25/21 02/26/22 valacyclovir 500 mg tablet 0 mg PO 10/25/21 02/26/22 diclofenac sodium 1 % topical gel 2 g topical QID 01/15/22 02/26/22 melatonin 5 mg tablet 5 - 10 mg PO BEDTIME PRN insomnia 01/15/22 02/26/22 venlafaxine 75 mg capsule,extended 75 mg PO DAILY PRN depressive 01/15/22 02/26/22 release 24 hr disorder artifi.tears(hypromellose)(PF) 0.3 1 drp ophthalmic (eye) Q4-6H PRN 02/26/22 02/26/22 % eye drops gabapentin 600 mg tablet 600 mg PO BID 02/26/22 02/26/22 thiamine HCl (vitamin B1) 100 mg 100 mg PO DAILY 02/26/22 02/26/22 tablet trazodone 100 mg tablet 100 mg PO BEDTIME 02/26/22 02/26/22 Previous Rx's Medication Instructions Recorded lidocaine 5 % topical patch 1 patch topical DAILY #15 ea 04/22/21 peg 3350-electrolytes 236 240 ml PO Q10M 1 day #4,000 mL 11/20/21 gram-22.74 gram-6.74 gram-5.86 gram solution (Golytely) vitamin A palmitate 10,000 unit 10,000 unit PO DAILY #90 caps 01/13/22 capsule dicyclomine 20 mg tablet 20 mg PO QID 30 days #120 tabs 01/15/22 linaclotide 72 mcg capsule 72 mcg PO QAM #30 caps 01/15/22 (Linzess) capsaicin 0.025 % topical patch 1 patch topical BID PRN pain #10 ea 01/25/22 (Capsicum) naproxen 500 mg tablet 500 mg PO BID PRN pain #30 tabs 01/25/22 Allergies Allergy/AdvReac Type Severity Reaction Status Date / Time Penicillins [PCN] Allergy Intermediate HIVES/RASH Verified 02/26/22 16:32 Mold Allergy Unknown Rash Uncoded 02/26/22 16:32 [facility] Past Medical History Medical History (Updated 03/11/22 @ 17:54 by Ac Headley MD) Anxiety Arthritis Asthma delivery delivered Diabetes Fibromyalgia H/O neoplasm of uncertain behavior of ovary Heart murmur Left shoulder pain Malabsorption due to intolerance, not elsewhere classified Neck pain Obesity (BMI 30.0-34.9) Ovarian tumor Ovary removal, prophylactic Pelvic fracture Surgical History S/P laparoscopic sleeve gastrectomy S/P partial hysterectomy Family History Family History Father Hypertension Parkinson's disease Mother Hypertension Diabetes Heart murmur Depression Sister Diabetes Arthritis Son No problems noted. Son No problems noted. Maternal Grandmother Heart disease Social History Social History Alcohol intake: current Alcohol intake frequency: a few times a month Patient Tobacco Use Status: Former Tobacco user Cigarettes Per Day: 2 Smoked in Last 30 Days: No Advance Directives: No Advance Directives Information Provided: Yes Patient : No Physical Exam Vital Signs: Vital Signs: Last Vital Signs Temp 96.6 F L 03/11/22 12:46 Pulse 63 03/11/22 12:46 Resp 18 03/11/22 12:46 BP 118/64 03/11/22 12:46 Pulse Ox 98 03/11/22 12:46 O2 Del Method 03/11/22 12:46 BMI result Body Mass Index 34.9 Course Course Course Narrative: RME - 51 yo female with history of fibromyalgia, depression/anxiety, obesity s/p sleeve who presents to the ER for evaluation of constant, nonradiating central chest pain that started 3 days ago along with epigastric abdominal pain, nausea, and dizziness last night. Also reports palpitations when laying down. VSS in triage. EKG done. Labs ordered. Stable to go back to waiting room until treatment room is available. Medications Administered Discontinued Medications Generic Name Dose Route Start Last Admin Trade Name Freq PRN Reason Stop Dose Admin Ibuprofen 400 mg 03/11/22 17:52 03/11/22 17:56 Ibuprofen 400 Mg Tablet PO 03/11/22 17:53 400 mg ONCE ONE Administration Ondansetron HCl 4 mg 03/11/22 17:52 03/11/22 17:56 Ondansetron Odt 4 Mg Tab.Rafdis TRANSLINGU 03/11/22 17:53 4 mg ONCE STA Administration Medical Decision Making Lab Data 03/11/22 15:40 03/11/22 15:40 Labs: Lab Results 03/11/22 03/11/22 03/11/22 Range/Units 15:40 15:40 15:40 WBC 6.4 (4.8-10.8) X10*3/uL RBC 4.93 (4.20-5.50) X10*6/uL Hgb 14.4 (12.0-16.0) g/dl Hct 43.5 (37.0-47.0) % MCV 88.2 (80.0-98.0) fL MCH 29.2 (27.0-33.0) pg MCHC 33.1 (31.0-35.0) g/dl RDW 12.8 (11.0-16.0) % Plt Count 251 (160-400) X10*3/uL MPV 10.1 (9.4-12.3) fL Immature Gran % (Auto) 0.2 (0.0-0.4) % Neut % (Auto) 59.8 (45-73) % Lymph % (Auto) 31.4 (20-40) % Hinds % (Auto) 5.5 (2-11) % Eos % (Auto) 2.2 (0-4) % Baso % (Auto) 0.9 (0-2) % Lymph # (Auto) 2.0 (1.2-4.9) X10*3/uL Hinds # (Auto) 0.4 (0.1-1.2) X10*3/uL Eos # (Auto) 0.1 (0.0-0.4) X10*3/uL Baso # (Auto) 0.1 (0.0-0.2) X10*3/uL Abs Immat Gran (auto) 0.01 (0.00-0.03) X10*3/uL Absolute Neuts (auto) 3.8 (2.0-8.3) x10*3/uL Absolute Nucleated RBC 0.000 (0.0-0.012) X10*3/uL Nucleated RBC % (auto) 0.0 (0.0-0.2) /100WBC Sodium 142 (135-145) mmol/L Potassium 4.0 (3.3-5.1) mmol/L Chloride 103 (96-108) mmol/L Carbon Dioxide 29 (22-29) mmol/L Anion Gap 14 (12-20) BUN 14 (9-16) mg/dL Creatinine 0.66 (0.5-1.4) mg/dL Estim Creat Clear Calc 99.0 Estimated GFR > 60 Random Glucose 144 H (60-115) mg/dL Calcium 9.4 (8.4-10.2) mg/dL Magnesium 2.0 (1.6-2.6) mg/dL Total Bilirubin 1.7 H (0.0-1.0) mg/dL Direct Bilirubin 0.4 (0.0-0.5) mg/dL AST 18 (5-31) U/L ALT 20 (0-31) U/L Alkaline Phosphatase 136 H (39-117) U/L Troponin I High Sens < 3.5 (<3.5-17.0) ng/L Total Protein 7.6 (6.5-8.0) g/dL Albumin 4.4 (3.5-5.0) g/dL Lipase 19 (8-78) U/L TSH 0.96 (0.32-4.0) uIU/mL Discharge Plan Discharge Clinical Impression: Costochondritis, Palpitations Patient Disposition: Home, Self-Care Instructions: Costochondritis (ED) Additional Instructions: Your EKG was normal. Your chest x-ray was normal. Your blood work was normal. Your troponin (marker of heart damage) was below detectable limits which is reassuring suggesting that you have not had a heart attack or heart injury is the cause of your pain. You do have tenderness with palpation over the joints of the chest and this is most likely caused by inflammation (costochondritis). Continue taking your medications as prescribed by your doctor Take ibuprofen 200 mg pills, 2 pills every 6 hours as needed for pain. Take Tylenol (acetaminophen) 500 mg pills, 2 pills every 6 hours as needed for pain. Follow-up with your doctor in 2 days. Please return to the emergency department if your symptoms get worse or if you develop any symptoms that are concerning to you. Prescriptions: No Action lidocaine 5 % adhesive patch,medicated 1 patch topical DAILY Qty: 15 0RF Rx Instructions: leave on most painful area for up to 12 hrs vitamin A palmitate 10,000 unit capsule 10,000 unit PO DAILY Qty: 90 3RF capsaicin [Capsicum] 0.025 % adhesive patch,medicated 1 patch topical BID PRN (Reason: pain) Qty: 10 0RF Rx Instructions: do not leave patch on for more than 8 hrs naproxen 500 mg tablet 500 mg PO BID PRN (Reason: pain) Qty: 30 0RF fluticasone propionate 50 mcg/actuation spray,suspension 1 spray intranasal DAILY Rx Instructions: administer into each nostril albuterol sulfate 90 mcg/actuation HFA aerosol inhaler 2 puff inhalation QID montelukast 10 mg tablet 10 mg PO BEDTIME multivitamin Capsule 1 cap PO DAILY Label Comments: gummy peg 3350-electrolytes [Golytely] 236-22.74-6.74 -5.86 gram recon soln 240 ml PO Q10M 1 Days Qty: 4000 0RF Rx Instructions: until fecal effluent is clear; do not exceed a total volume of 2,000 mL diclofenac sodium 1 % gel 2 g topical QID melatonin 5 mg tablet 5 - 10 mg PO BEDTIME PRN (Reason: insomnia) venlafaxine 75 mg capsule,extended release 24hr 75 mg PO DAILY PRN (Reason: depressive disorder) Linzess 72 mcg capsule 72 mcg PO QAM Qty: 30 6RF dicyclomine 20 mg tablet 20 mg PO QID 30 Days Qty: 120 6RF artifi.tears(hypromellose)(PF) 0.3 % drops 1 drp ophthalmic (eye) Q4-6H PRN gabapentin 600 mg tablet 600 mg PO BID thiamine HCl (vitamin B1) 100 mg tablet 100 mg PO DAILY trazodone 100 mg tablet 100 mg PO BEDTIME glipizide 5 mg tablet extended release 24hr 5 mg PO DAILY ciprofloxacin-dexamethasone [Ciprodex] 0.3-0.1 % drops,suspension 0 drp otic (ears) meclizine 25 mg tablet 25 mg PO TID PRN (Reason: dizziness) metformin 500 mg tablet extended release 24 hr 1,000 mg PO BID cholecalciferol (vitamin D3) 50 mcg (2,000 unit) capsule 50 mcg PO DAILY lorazepam 0.5 mg tablet 0.5 mg PO DAILY PRN (Reason: anxiety) famotidine 20 mg tablet 20 mg PO BID atorvastatin 40 mg tablet 40 mg PO DAILY valacyclovir 500 mg tablet 0 mg PO Invokana 100 mg tablet 100 mg PO QAM cyclobenzaprine 10 mg tablet 10 mg PO TID alcohol swabs Pads, Medicated topical BID sumatriptan succinate 50 mg tablet 50 mg PO (DME) FreeStyle Lite Strips Strip See Rx Instructions .ROUTE BID Qty: 10 Rx Instructions: As directed fluticasone propionate [Flovent HFA] 110 mcg/actuation HFA aerosol inhaler 1 puff inhalation BID hydrochlorothiazide 25 mg tablet 25 mg PO DAILY polyvinyl alcohol [Artificial Tears (polyvin alc)] 1.4 % drops 1 drp ophthalmic (eye) TID-QID (DME) lancets [FreeStyle Lancets] 28 gauge misc See Rx Instructions .ROUTE BID Qty: 100 Rx Instructions: As directed estradiol 0.01 % (0.1 mg/gram) cream 1 g vaginal 2XW Print Language: Belarusian
[2022-03-11 15:45] LABS: MANUAL DIFF FLAG NO
[2022-03-11 15:46] LABS: Basophils Absolute Auto 0.1 X10*3/uL (0.0-0.2); Basophils Percent Auto 0.9 % (0-2); Eosinophils Absolute Auto 0.1 X10*3/uL (0.0-0.4); Eosinophils Percent Auto 2.2 % (0-4); Hematocrit 43.5 % (37.0-47.0); Hemoglobin 14.4 g/dl (12.0-16.0); Imm Gran Abs Auto 0.01 X10*3/uL (0.00-0.03); Imm Gran Pct Auto 0.2 % (0.0-0.4); Lymphocytes Percent Auto 31.4 % (20-40); Mean Corpuscular HGB Conc 33.1 g/dl (31.0-35.0); Mean Corpuscular Hemoglobin 29.2 pg (27.0-33.0); Mean Corpuscular Volume 88.2 fL (80.0-98.0); Mean Platelet Volume 10.1 fL (9.4-12.3); Monocytes Absolute Auto 0.4 X10*3/uL (0.1-1.2); Monocytes Percent Auto 5.5 % (2-11); Neutrophils Absolute Auto 3.8 x10*3/uL (2.0-8.3); Neutrophils Percent Auto 59.8 % (45-73); Platelet Count 251 X10*3/uL (160-400); Red Blood Count 4.93 X10*6/uL (4.20-5.50); Red Cell Distribution Width 12.8 % (11.0-16.0); White Blood Count 6.4 X10*3/uL (4.8-10.8)
[2022-03-11 16:09] LABS: Troponin-I High Sensitivity < 3.5 ng/L (<3.5-17.0)
[2022-03-11 16:11] LABS: Alanine Aminotransferase 20 U/L (0-31); Albumin Level 4.4 g/dL (3.5-5.0); Alkaline Phosphatase 136 U/L (39-117); Anion Gap 14 (12-20); Aspartate Amino Transferase 18 U/L (5-31); Bilirubin Direct 0.4 mg/dL (0.0-0.5); Bilirubin Total 1.7 mg/dL (0.0-1.0); Blood Urea Nitrogen 14 mg/dL (9-16); Calcium 9.4 mg/dL (8.4-10.2); Carbon Dioxide 29 mmol/L (22-29); Chloride 103 mmol/L (96-108); Estimated Glomerular Filt Rate > 60; Glucose Random 144 mg/dL (60-115); Lipase 19 U/L (8-78); Sodium 142 mmol/L (135-145); Total Protein 7.6 g/dL (6.5-8.0)
[2022-03-11 16:22] LABS: TSH reflex Free T4 0.96 uIU/mL (0.32-4.0)
[2022-03-11] MEDS: Ondansetron ODT 4 MG TAB.RAPDIS TRANSLINGU (17:56)
[2022-03-11] MEDS: Ibuprofen 400 MG TABLET PO (17:56)
== END 2022-03-11 18:36 | disposition home or self-care (01) ==
PROVIDERS: Physician Assistant; Emergency Provider Emergency Medicine Emergency Medical Services; PCP Internal Medicine
DX: R07.89 Other chest pain (principal); R00.2 Palpitations; Z79.899 Other long term (current) drug therapy
CPT/HCPCS: 36415; 71046; 80048; 80076; 83690; 83735; 84443; 84484; 85025; 93005; 99283; 99284

== ENCOUNTER → 2022-03-28 13:51 | Outpatient (BNVA) | payer MEDICAID, SELFPAY | PROVIDERS: PCP Internal Medicine; Referring Provider Internal Medicine; Visit Provider Physician Assistant Surgical | DX: R10.9 Unspecified abdominal pain (principal); R11.2 Nausea with vomiting, unspecified; K58.2 Mixed irritable bowel syndrome; K80.20 Calculus of gallbladder without cholecystitis without obstruction; Z90.3 Acquired absence of stomach [part of] | CPT/HCPCS: 99212 ==

== ENCOUNTER → 2022-07-23 11:19 | Outpatient (BNVA) | payer MEDICAID, SELFPAY | PROVIDERS: PCP Internal Medicine; Referring Provider Internal Medicine; Visit Provider Nurse Practitioner | DX: K58.2 Mixed irritable bowel syndrome (principal); K80.20 Calculus of gallbladder without cholecystitis without obstruction; R11.2 Nausea with vomiting, unspecified; E66.01 Morbid (severe) obesity due to excess calories; Z68.41 Body mass index [BMI] 40.0-44.9, adult | CPT/HCPCS: 99212 ==

== ENCOUNTER 2022-07-27 13:34 | Emergency (ER) | payer MEDICAID, SELFPAY ==
--- NOTE | ~2022-07-27 | CT_ITS ---
EXAMINATION: CT ABDOMEN AND PELVIS WITHOUT CONTRAST CLINICAL INFORMATION: Right flank pain radiates to groin, rule out stones. COMPARISON: Abdominal ultrasound 09/29/2017. TECHNIQUE: Multidetector volumetric imaging was performed from the superior aspect of the liver through the pubic symphysis. Sagittal and coronal reformatted images were obtained on the technologist's workstation. This CT examination was performed using dose optimization techniques as appropriate, variously including the following: *Automated exposure control *Adjustment of mA and/or kV according to patient size (this includes techniques or standardized protocols for targeted exams where dose is matched to indication/reason for exam; i.e. extremities or head) *Use of iterative reconstruction technique DLP: 658 mGy-cm FINDINGS: LUNG BASES: The visualized lung bases are unremarkable. LIVER, GALLBLADDER, AND BILIARY TREE: The liver is normal in size, shape, and attenuation. No focal hepatic lesion or biliary ductal dilatation is present. Tiny cholelithiasis. No evidence of cholecystitis. PANCREAS: No discrete mass. No ductal dilatation. SPLEEN: The spleen appears normal. ADRENAL GLANDS: No adrenal mass. KIDNEYS AND URETERS: The kidneys are normal in size, shape, and attenuation. No hydronephrosis, hydroureter, or calculi seen. No perinephric stranding. BLADDER: Decompressed and not well evaluated. GASTROINTESTINAL TRACT: Sleeve gastrectomy. Small bowel is normal in caliber. The appendix is normal. The large bowel is normal in caliber. No acute inflammatory changes. ABDOMINAL WALL: No significant hernia is appreciated. LYMPH NODES: No adenopathy. VASCULAR: No aortic aneurysm. PELVIC VISCERA: Suspect hysterectomy. No pelvic mass. OSSEOUS STRUCTURES: No suspicious osseous lesions. Degenerative changes in the spine. CT/CT abdomen pelvis wo IV con IMPRESSION: No acute findings to correlate with the clinical indication. No nephrolithiasis or hydronephrosis. Normal appendix. Fleischner guidelines were followed.
--- NOTE | ~2022-07-27 | XR_ITS ---
EXAMINATION: XR LUMBOSACRAL SPINE CLINICAL INFORMATION: Low back pain radiating to the left hip. COMPARISON: 04/13/2015 sacrum/coccyx. TECHNIQUE: Three views of the lumbosacral spine. FINDINGS: There is generalized osteopenia. No acute fracture or dislocation is seen. The disc spaces are unremarkable. The soft tissues are unremarkable. L5-S1 is transitional with partial sacralization of L5, right greater than left. Spina bifida occulta is noted at L5. The soft tissues are unremarkable. XR/XR lumbar spine 2-3V IMPRESSION: Transitional anatomy as detailed above without other significant abnormality or change.
[2022-07-27 14:09] VITALS: BP 117/55; PULSE 63; RESP 18; TEMP 36.7; O2SAT 99; BMI 33.3
--- NOTE | 2022-07-27 14:40 | ED.GENADULT ---
HPI - General Adult General Chief complaint: Back Pain/Injury Stated complaint: r hip and back pain Time Seen by Provider: 07/27/22 17:30 History of Present Illness HPI narrative: Patient complains of right sided back and flank pain radiating to groin for 2 days, unlike other pains she has had before Denies radiation of the pain down leg denies numbness weakness or tingling denies fever denies nausea vomiting or diarrhea denies dysuria Related Data Home Medications Medication Instructions Recorded Confirmed albuterol sulfate 90 mcg/actuation 2 puff inhalation QID 11/22/19 03/28/22 aerosol inhaler fluticasone propionate 50 1 spray intranasal DAILY 11/22/19 03/28/22 mcg/actuation nasal spray,suspension montelukast 10 mg tablet 10 mg PO BEDTIME 11/22/19 03/28/22 multivitamin 1 cap PO DAILY 11/22/19 03/28/22 alcohol swabs pad topical BID 10/25/21 03/28/22 atorvastatin 40 mg tablet 40 mg PO DAILY 10/25/21 03/28/22 blood sugar diagnostic (SuzanneStyle #10 ea 10/25/21 03/28/22 Lite Strips) canagliflozin 100 mg tablet 100 mg PO QAM 10/25/21 03/28/22 (Invokana) cholecalciferol (vitamin D3) 50 50 mcg PO DAILY 10/25/21 03/28/22 mcg (2,000 unit) capsule cyclobenzaprine 10 mg tablet 10 mg PO TID 10/25/21 03/28/22 estradiol 0.01% (0.1 mg/gram) 1 g vaginal 2XW 10/25/21 03/28/22 vaginal cream fluticasone propionate 110 1 puff inhalation BID 10/25/21 03/28/22 mcg/actuation HFA aerosol inhaler (Flovent HFA) glipizide 5 mg tablet, extended 5 mg PO DAILY 10/25/21 03/28/22 release 24 hr hydrochlorothiazide 25 mg tablet 25 mg PO DAILY 10/25/21 03/28/22 lancets 28 gauge (FreeStyle #100 ea 10/25/21 03/28/22 Lancets) lorazepam 0.5 mg tablet 0.5 mg PO DAILY PRN anxiety 10/25/21 03/28/22 meclizine 25 mg tablet 25 mg PO TID PRN dizziness 10/25/21 03/28/22 metformin 500 mg tablet,extended 1,000 mg PO BID 10/25/21 03/28/22 release 24 hr polyvinyl alcohol 1.4 % eye drops 1 drp ophthalmic (eye) TID-QID 10/25/21 03/28/22 (Artificial Tears (polyvinyl alcohol)) sumatriptan succinate 50 mg tablet 50 mg PO 10/25/21 03/28/22 valacyclovir 500 mg tablet 0 mg PO 10/25/21 03/28/22 diclofenac sodium 1 % topical gel 2 g topical QID 01/15/22 03/28/22 melatonin 5 mg tablet 5 - 10 mg PO BEDTIME PRN insomnia 01/15/22 03/28/22 venlafaxine 75 mg capsule,extended 75 mg PO DAILY PRN depressive 01/15/22 03/28/22 release 24 hr disorder artifi.tears(hypromellose)(PF) 0.3 1 drp ophthalmic (eye) Q4-6H PRN 02/26/22 03/28/22 % eye drops gabapentin 600 mg tablet 600 mg PO BID 02/26/22 03/28/22 thiamine HCl (vitamin B1) 100 mg 100 mg PO DAILY 02/26/22 03/28/22 tablet trazodone 100 mg tablet 100 mg PO BEDTIME 02/26/22 03/28/22 ibuprofen 600 mg tablet 600 mg PO TID 07/23/22 terbinafine HCl 250 mg tablet 250 mg PO QAM 07/23/22 venlafaxine 37.5 mg 37.5 mg PO DAILY depressive 07/23/22 capsule,extended release 24 hr disorder Previous Rx's Medication Instructions Recorded lidocaine 5 % topical patch 1 patch topical DAILY #15 ea 04/22/21 vitamin A palmitate 3,000 mcg 10,000 unit PO DAILY #90 caps 01/13/22 (10,000 unit) capsule dicyclomine 20 mg tablet 20 mg PO QID 30 days #120 tabs 01/15/22 linaclotide 72 mcg capsule 72 mcg PO QAM #30 caps 01/15/22 (Linzess) capsaicin 0.025 % topical patch 1 patch topical BID PRN pain #10 ea 01/25/22 (Capsicum) naproxen 500 mg tablet 500 mg PO BID PRN pain #30 tabs 01/25/22 famotidine 20 mg tablet 20 mg PO BID #60 tabs 04/15/22 peg 3350-electrolytes 236 240 ml PO Q10M 1 day #4,000 mL 07/23/22 gram-22.74 gram-6.74 gram-5.86 gram solution (Golytely) cyclobenzaprine 10 mg tablet 10 mg PO TID PRN muscle spasm #14 07/27/22 tabs lidocaine 5 % topical patch 1 patch topical DAILY #15 ea 07/27/22 (Lidoderm) oxycodone 5 mg tablet 5 mg PO Q6H PRN pain #5 tabs 07/27/22 Allergies Allergy/AdvReac Type Severity Reaction Status Date / Time Penicillins [PCN] Allergy Intermediate HIVES/RASH Verified 07/23/22 11:36 Mold Allergy Unknown Rash Uncoded 02/26/22 16:32 FOR[facility]LY [facility] Past Medical History Source: nursing notes reviewed Medical History Anxiety Arthritis Asthma delivery delivered Diabetes Fibromyalgia H/O neoplasm of uncertain behavior of ovary Heart murmur Left shoulder pain Malabsorption due to intolerance, not elsewhere classified Neck pain Obesity (BMI 30.0-34.9) Ovarian tumor Ovary removal, prophylactic Pelvic fracture Surgical History S/P laparoscopic sleeve gastrectomy S/P partial hysterectomy Family History Family History Father Hypertension Parkinson's disease Mother Hypertension Diabetes Heart murmur Depression Sister Diabetes Arthritis Son No problems noted. Son No problems noted. Maternal Grandmother Heart disease Social History Social History Alcohol intake: current Alcohol intake frequency: a few times a month Patient Tobacco Use Status: Former Tobacco user Cigarettes Per Day: 2 Advance Directives: No Advance Directives Information Provided: No Physical Exam ED Vital Signs: Vital Signs - 24 hr 07/27/22 14:09 Temperature 98.1 F Pulse Rate 63 Respiratory Rate 18 Blood Pressure 117/55 L Pulse Oximetry 99 Oxygen Delivery Method Room Air BMI result Body Mass Index 33.3 General appearance is no distress but uncomfortable The eyes are anicteric no pallor The pharynx is clear with moist mucous membranes no redness swelling or exudate Neck is supple Chest clear to auscultation bilateral The abdomen had some right groin tenderness, no hernia was palpated and some right low abdomen tenderness, no rebound no guarding The back there was right flank and low back tenderness Exam of the skin in the groin the flank and the back was all normal no rash no lesions Extremities full range of motion x4 Neuro no motor or sensory deficit noted, she can walk with her cane but it is very uncomfortable as her back hurts but no obvious motor or sensory deficits Course Course Course Narrative: RME: Right back/hip pain without any trauma. no abdominal pain, nuasea, flank pain, or symptoms. Lumbar xray ordered Patient with low back and flank pain radiating to the groin unlike prior back pains is pending CT scan labs and urinalysis, to rule out kidney stone or UTI Case is signed out to physician assistant Sultana at 19:00 to follow results and dispo patient Reevaluation(s) Reevaluation #1: 2040-CT abdomen pelvis shows no acute finding. Labs and urinalysis are unremarkable. Likely lumbar strain. Patient be discharged home with analgesia, muscle relaxants and medicated patches. Reviewed worrisome signs and symptoms of when to return to the emergency room. Comfortable plan for discharge home. Medications Administered Discontinued Medications Generic Name Dose Route Start Last Admin Trade Name Freq PRN Reason Stop Dose Admin Ketorolac Tromethamine 30 mg 07/27/22 18:28 07/27/22 18:38 Ketorolac Tromethamine 30 Mg/Ml Vial IM 07/27/22 18:29 30 mg ONCE ONE Administration Oxycodone HCl 10 mg 07/27/22 18:28 07/27/22 18:38 Oxycodone Hcl Immed Release 5 Mg Tablet PO 07/27/22 18:29 10 mg ONCE ONE Administration Medical Decision Making Lab Data 07/27/22 18:50 07/27/22 18:56 Labs: Lab Results 07/27/22 07/27/22 07/27/22 Range/Units 18:50 18:56 19:05 WBC 7.7 (4.8-10.8) X10*3/uL RBC 4.57 (4.20-5.50) X10*6/uL Hgb 13.9 (12.0-16.0) g/dl Hct 40.5 (37.0-47.0) % MCV 88.6 (80.0-98.0) fL MCH 30.4 (27.0-33.0) pg MCHC 34.3 (31.0-35.0) g/dl RDW 12.9 (11.0-16.0) % Plt Count 225 (160-400) X10*3/uL MPV 10.5 (9.4-12.3) fL Immature Gran % (Auto) 0.1 (0.0-0.4) % Neut % (Auto) 69.5 (45-73) % Lymph % (Auto) 22.5 (20-40) % Dickens % (Auto) 5.4 (2-11) % Eos % (Auto) 1.9 (0-4) % Baso % (Auto) 0.6 (0-2) % Lymph # (Auto) 1.7 (1.2-4.9) X10*3/uL Dickens # (Auto) 0.4 (0.1-1.2) X10*3/uL Eos # (Auto) 0.2 (0.0-0.4) X10*3/uL Baso # (Auto) 0.1 (0.0-0.2) X10*3/uL Abs Immat Gran (auto) 0.01 (0.00-0.03) X10*3/uL Absolute Neuts (auto) 5.4 (2.0-8.3) x10*3/uL Absolute Nucleated RBC 0.000 (0.0-0.012) X10*3/uL Nucleated RBC % (auto) 0.0 (0.0-0.2) /100WBC Sodium 143 (135-145) mmol/L Potassium 3.9 (3.3-5.1) mmol/L Chloride 109 H (96-108) mmol/L Carbon Dioxide 25 (22-29) mmol/L BUN 13 (9-16) mg/dL Creatinine 0.57 (0.5-1.4) mg/dL Estim Creat Clear Calc 114.9 Estimated GFR > 60 POC Glucose (60-115) mg/dL Random Glucose 172 H (60-115) mg/dL Calcium 9.2 (8.4-10.2) mg/dL Total Bilirubin 0.8 (0.0-1.0) mg/dL Direct Bilirubin 0.2 (0.0-0.5) mg/dL AST 13 (5-31) U/L ALT 17 (0-31) U/L Alkaline Phosphatase 103 (39-117) U/L Total Protein 6.6 (6.5-8.0) g/dL Albumin 3.8 (3.5-5.0) g/dL Urine Color Yellow Urine Appearance Clear Urine pH 7.5 (5.0-9.0) Ur Specific Mehama >= 1.030 H (1.005-1.025) Urine Protein Negative (Neg-Trace) mg/dL Urine Glucose (UA) >=1000 H (Negative) mg/dL Urine Ketones Negative (Negative) mg/dL Urine Blood Negative (Negative) Urine Nitrite Negative (Negative) Ur Leukocyte Esterase Negative (Negative) Urine RBC 0-2 (0-2) /HPF Urine WBC 0-5 (0-5) /HPF Ur Squamous Epith Cells 0-2 (0-2) /HPF Urine Bacteria None Seen (None Seen) Hyaline Casts 0-2 (0-2) /LPF Urine Test (NEGATIVE) 07/27/22 07/27/22 Range/Units 19:05 19:45 WBC (4.8-10.8) X10*3/uL RBC (4.20-5.50) X10*6/uL Hgb (12.0-16.0) g/dl Hct (37.0-47.0) % MCV (80.0-98.0) fL MCH (27.0-33.0) pg MCHC (31.0-35.0) g/dl RDW (11.0-16.0) % Plt Count (160-400) X10*3/uL MPV (9.4-12.3) fL Immature Gran % (Auto) (0.0-0.4) % Neut % (Auto) (45-73) % Lymph % (Auto) (20-40) % Dickens % (Auto) (2-11) % Eos % (Auto) (0-4) % Baso % (Auto) (0-2) % Lymph # (Auto) (1.2-4.9) X10*3/uL Dickens # (Auto) (0.1-1.2) X10*3/uL Eos # (Auto) (0.0-0.4) X10*3/uL Baso # (Auto) (0.0-0.2) X10*3/uL Abs Immat Gran (auto) (0.00-0.03) X10*3/uL Absolute Neuts (auto) (2.0-8.3) x10*3/uL Absolute Nucleated RBC (0.0-0.012) X10*3/uL Nucleated RBC % (auto) (0.0-0.2) /100WBC Sodium (135-145) mmol/L Potassium (3.3-5.1) mmol/L Chloride (96-108) mmol/L Carbon Dioxide (22-29) mmol/L BUN (9-16) mg/dL Creatinine (0.5-1.4) mg/dL Estim Creat Clear Calc Estimated GFR POC Glucose 171 H (60-115) mg/dL Random Glucose (60-115) mg/dL Calcium (8.4-10.2) mg/dL Total Bilirubin (0.0-1.0) mg/dL Direct Bilirubin (0.0-0.5) mg/dL AST (5-31) U/L ALT (0-31) U/L Alkaline Phosphatase (39-117) U/L Total Protein (6.5-8.0) g/dL Albumin (3.5-5.0) g/dL Urine Color Urine Appearance Urine pH (5.0-9.0) Ur Specific Mehama (1.005-1.025) Urine Protein (Neg-Trace) mg/dL Urine Glucose (UA) (Negative) mg/dL Urine Ketones (Negative) mg/dL Urine Blood (Negative) Urine Nitrite (Negative) Ur Leukocyte Esterase (Negative) Urine RBC (0-2) /HPF Urine WBC (0-5) /HPF Ur Squamous Epith Cells (0-2) /HPF Urine Bacteria (None Seen) Hyaline Casts (0-2) /LPF Urine Test NEGATIVE (NEGATIVE) Discharge Plan Discharge Clinical Impression: Back pain Patient Disposition: Home, Self-Care Instructions: Back Pain (ED) Additional Instructions: Continue ibuprofen Prescriptions: New oxycodone 5 mg tablet 5 mg PO Q6H PRN (Reason: pain) Qty: 5 0RF Rx Instructions: Partial Fill upon patient request. cyclobenzaprine 10 mg tablet 10 mg PO TID PRN (Reason: muscle spasm) Qty: 14 0RF lidocaine [Lidoderm] 5 % adhesive patch,medicated 1 patch topical DAILY Qty: 15 0RF Rx Instructions: leave on most painful area for up to 12 hrs No Action lidocaine 5 % adhesive patch,medicated 1 patch topical DAILY Qty: 15 0RF Rx Instructions: leave on most painful area for up to 12 hrs vitamin A palmitate 10,000 unit capsule 10,000 unit PO DAILY Qty: 90 3RF capsaicin [Capsicum] 0.025 % adhesive patch,medicated 1 patch topical BID PRN (Reason: pain) Qty: 10 0RF Rx Instructions: do not leave patch on for more than 8 hrs naproxen 500 mg tablet 500 mg PO BID PRN (Reason: pain) Qty: 30 0RF fluticasone propionate 50 mcg/actuation spray,suspension 1 spray intranasal DAILY Rx Instructions: administer into each nostril albuterol sulfate 90 mcg/actuation HFA aerosol inhaler 2 puff inhalation QID montelukast 10 mg tablet 10 mg PO BEDTIME multivitamin Capsule 1 cap PO DAILY Patient Comments: gummy diclofenac sodium 1 % gel 2 g topical QID melatonin 5 mg tablet 5 - 10 mg PO BEDTIME PRN (Reason: insomnia) venlafaxine 75 mg capsule,extended release 24hr 75 mg PO DAILY PRN (Reason: depressive disorder) Linzess 72 mcg capsule 72 mcg PO QAM Qty: 30 6RF dicyclomine 20 mg tablet 20 mg PO QID 30 Days Qty: 120 6RF artifi.tears(hypromellose)(PF) 0.3 % drops 1 drp ophthalmic (eye) Q4-6H PRN gabapentin 600 mg tablet 600 mg PO BID thiamine HCl (vitamin B1) 100 mg tablet 100 mg PO DAILY trazodone 100 mg tablet 100 mg PO BEDTIME famotidine 20 mg tablet 20 mg PO BID Qty: 60 6RF ibuprofen 600 mg tablet 600 mg PO TID venlafaxine 37.5 mg capsule,extended release 24hr 37.5 mg PO DAILY terbinafine HCl 250 mg tablet 250 mg PO QAM peg 3350-electrolytes [Golytely] 236-22.74-6.74 -5.86 gram recon soln 240 ml PO Q10M 1 Days Qty: 4000 0RF Rx Instructions: until fecal effluent is clear; do not exceed a total volume of 2,000 mL glipizide 5 mg tablet extended release 24hr 5 mg PO DAILY meclizine 25 mg tablet 25 mg PO TID PRN (Reason: dizziness) metformin 500 mg tablet extended release 24 hr 1,000 mg PO BID cholecalciferol (vitamin D3) 50 mcg (2,000 unit) capsule 50 mcg PO DAILY lorazepam 0.5 mg tablet 0.5 mg PO DAILY PRN (Reason: anxiety) atorvastatin 40 mg tablet 40 mg PO DAILY valacyclovir 500 mg tablet 0 mg PO Invokana 100 mg tablet 100 mg PO QAM cyclobenzaprine 10 mg tablet 10 mg PO TID alcohol swabs Pads, Medicated topical BID sumatriptan succinate 50 mg tablet 50 mg PO (DME) FreeStyle Lite Strips Strip See Rx Instructions .ROUTE BID Qty: 10 Rx Instructions: As directed fluticasone propionate [Flovent HFA] 110 mcg/actuation HFA aerosol inhaler 1 puff inhalation BID hydrochlorothiazide 25 mg tablet 25 mg PO DAILY polyvinyl alcohol [Artificial Tears (polyvin alc)] 1.4 % drops 1 drp ophthalmic (eye) TID-QID (DME) lancets [FreeStyle Lancets] 28 gauge misc See Rx Instructions .ROUTE BID Qty: 100 Rx Instructions: As directed estradiol 0.01 % (0.1 mg/gram) cream 1 g vaginal 2XW Referrals: Winsome Glass MD [Primary Care Provider] - 1 week Print Language: Slovak
[2022-07-27] MEDS: Ketorolac Tromethamine 30 MG/ML VIAL IM (18:38)
[2022-07-27] MEDS: oxyCODONE HCl Immed Release 5 MG TABLET 10 MG PO (18:38)
[2022-07-27 18:54] LABS: MANUAL DIFF FLAG NO
[2022-07-27 18:55] LABS: Basophils Absolute Auto 0.1 X10*3/uL (0.0-0.2); Basophils Percent Auto 0.6 % (0-2); Eosinophils Absolute Auto 0.2 X10*3/uL (0.0-0.4); Eosinophils Percent Auto 1.9 % (0-4); Hematocrit 40.5 % (37.0-47.0); Hemoglobin 13.9 g/dl (12.0-16.0); Imm Gran Abs Auto 0.01 X10*3/uL (0.00-0.03); Imm Gran Pct Auto 0.1 % (0.0-0.4); Lymphocytes Absolute Auto 1.7 X10*3/uL (1.2-4.9); Lymphocytes Percent Auto 22.5 % (20-40); Mean Corpuscular HGB Conc 34.3 g/dl (31.0-35.0); Mean Corpuscular Hemoglobin 30.4 pg (27.0-33.0); Mean Corpuscular Volume 88.6 fL (80.0-98.0); Mean Platelet Volume 10.5 fL (9.4-12.3); Monocytes Absolute Auto 0.4 X10*3/uL (0.1-1.2); Monocytes Percent Auto 5.4 % (2-11); Neutrophils Absolute Auto 5.4 x10*3/uL (2.0-8.3); Neutrophils Percent Auto 69.5 % (45-73); Platelet Count 225 X10*3/uL (160-400); Red Blood Count 4.57 X10*6/uL (4.20-5.50); Red Cell Distribution Width 12.9 % (11.0-16.0); White Blood Count 7.7 X10*3/uL (4.8-10.8)
[2022-07-27 19:15] LABS: Appearance Urine Clear; Color Urine Yellow; Glucose Urine UA >=1000 mg/dL (Negative); Leukocyte Esterase Urine Negative (Negative); Nitrite Urine Negative (Negative); PH 7.5 (5.0-9.0); Specific Gravity - Urine >= 1.030 (1.005-1.025); UMIC TRIGGER UACC YES; Urine Blood Negative (Negative); Urine Ketones Negative (Negative); Urine Protein Negative (Neg-Trace)
[2022-07-27 19:17] LABS: UPreg QC Valid YES; Urine Pregnancy NEGATIVE (NEGATIVE)
[2022-07-27 19:20] LABS: Bacteria Urine None Seen (None Seen); Hyaline Casts Urine 0-2 /LPF (0-2); RBC Urine 0-2 /HPF (0-2); Squamous Epithelial Cell Urine 0-2 /HPF (0-2); WBC Urine 0-5 /HPF (0-5)
[2022-07-27 19:27] LABS: Alanine Aminotransferase 17 U/L (0-31); Albumin Level 3.8 g/dL (3.5-5.0); Alkaline Phosphatase 103 U/L (39-117); Aspartate Amino Transferase 13 U/L (5-31); Bilirubin Direct 0.2 mg/dL (0.0-0.5); Bilirubin Total 0.8 mg/dL (0.0-1.0); Blood Urea Nitrogen 13 mg/dL (9-16); Calcium 9.2 mg/dL (8.4-10.2); Carbon Dioxide 25 mmol/L (22-29); Chloride 109 mmol/L (96-108); Creatinine Clr Calc Pharmacy 114.9; Estimated Glomerular Filt Rate > 60; Glucose Random 172 mg/dL (60-115); Potassium 3.9 mmol/L (3.3-5.1); Sodium 143 mmol/L (135-145); Total Protein 6.6 g/dL (6.5-8.0)
[2022-07-27 19:49] LABS: Glucose, Whole Blood 171 mg/dL (60-115)
[2022-07-27 21:02] VITALS: BP 101/62; PULSE 61; RESP 18; O2SAT 95
[2022-07-27 21:16] LABS: Anion Gap 13 (12-20)
== END 2022-07-27 21:04 | disposition home or self-care (01) ==
PROVIDERS: Physician Assistant Medical; Emergency Provider Internal Medicine; PCP Internal Medicine
DX: M54.50 Low back pain, unspecified (principal); M25.551 Pain in right hip; M79.604 Pain in right leg; Z79.899 Other long term (current) drug therapy; Z87.891 Personal history of nicotine dependence
CPT/HCPCS: 36415; 72100; 74176; 80048; 80076; 81001; 81025; 82947; 85025; 96372; 99284; J1885

== ENCOUNTER 2022-09-02 12:57 | Outpatient (AMB) | payer MEDICAID, SELFPAY ==
[2022-09-02 13:03] VITALS: BP 133/60; PULSE 68; TEMP 36.1; O2SAT 95; BMI 33.9
--- NOTE | 2022-09-02 13:03 | MHC.OFFVISWM ---
Intake VS Expanded 09/02/22 13:03 Height 5 ft 1 in Weight 179 lb 3.2 oz BMI 33.9 BP 133/60 Blood Pressure Location Rt brachial Blood Pressure Position Sitting Pulse 68 Pulse Source Pulse Oximeter Temp 96.9 F Temperature Source Temporal Artery Scan Pulse Oximetry 95 Oxygen Delivery Method Room Air Body Fat 73.0 Body Fat Percentage 40.8 Free Fat Mass 106.0 Muscle Mass 100.8 Visceral Mass 10.0 Water Mass 75.4 BMR 1,467 Intake Visit Reasons: (OV) PO LSG 07/15/18 Allergies Penicillins [PCN] Allergy (Intermediate, Verified 09/02/22 13:03) HIVES/RASH Mold Allergy (Unknown, Uncoded 02/26/22 16:32) Rash Medication List - Last Reconciled 09/02/22 by MARRY Moore albuterol sulfate 90 mcg/actuation 2 puffs inhalation QID alcohol swabs 1 pad topical BID artifi.tears(hypromellose)(PF) 0.3% 1 drp ophthalmic (eye) Q4-6H PRN atorvastatin 40 mg PO DAILY blood sugar diagnostic (FreeStyle Lite Strips) As directed canagliflozin (Invokana) 100 mg PO QAM capsaicin 0.025% (Capsicum) 1 patch topical BID PRN cholecalciferol (vitamin D3) 50 mcg PO DAILY cyclobenzaprine 10 mg PO TID PRN cyclobenzaprine 10 mg PO TID diclofenac sodium 1% 2 grams topical QID dicyclomine 20 mg PO QID 30 days estradiol 0.01%(0.1mg/gram) 1 g vaginal 2XW famotidine 20 mg PO BID fluticasone propionate 50 mcg/actuation 1 spray intranasal DAILY fluticasone propionate 110 mcg/actuation (Flovent HFA) 1 puff inhalation BID gabapentin 600 mg PO BID glipizide ER 5 mg PO DAILY hydrochlorothiazide 25 mg PO DAILY ibuprofen 600 mg PO TID lancets (FreeStyle Lancets) As directed lidocaine 5% (Lidoderm) 1 patch topical DAILY lidocaine 5% 1 patch topical DAILY linaclotide (Linzess) 72 mcg PO QAM lorazepam 0.5 mg PO DAILY PRN meclizine 25 mg PO TID PRN melatonin 5 mg PO BEDTIME PRN metformin ER 1,000 mg PO BID montelukast 10 mg PO BEDTIME multivitamin 1 cap PO DAILY naproxen 500 mg PO BID PRN oxycodone 5 mg PO Q6H PRN peg 3350-electrolytes 236-22.74-6.74 -5.86 gram (Golytely) 240 mL PO Q10M 1 day polyvinyl alcohol 1.4% (Artificial Tears (polyvinyl alcohol)) 1 drp ophthalmic (eye) TID-QID sumatriptan succinate 50 mg PO ONCE PRN terbinafine HCl 250 mg PO QAM thiamine HCl (vitamin B1) 100 mg PO DAILY trazodone 100 mg PO BEDTIME valacyclovir 500 mg PO BID venlafaxine ER 75 mg PO DAILY PRN venlafaxine ER 37.5 mg PO DAILY vitamin A palmitate 10,000 units PO DAILY HPI HPI Comments History of Present Illness Details This?is a?52?yo female who is s/p LSG 07/15/2018. Presents for 4 year 2 month post op visit. Weight at last visit on 03/28/2022 was 181.6 pounds with a BMI of 34.3, weight today is 179.2 pounds, representing a 2.4 pound weight loss with a BMI today of 33.9.? Difficulty with exercise due to chronic pain/arthritis, sciatic pain. Seeing GI for some complaints of diffuse abdominal pain, has IBS. Does take NSAIDs a lot . Has an infected tooth, on abx, makes it difficult to chew on that side. She wants an adjustment to her surgery to help with weight loss. Frustrated by her lack of progress. Admits she was most successful when she was able to incorporate exercise. Present meal plan includes: (sleeps later, goes to bed later than usual lately) breakfast- 2 eggs or oatmeal lunch- Premier premade 30g shake snack- Oikos yogurt dinner- 3oz protein, 3oz salad or some rice PFSH Medical History Anxiety Arthritis Asthma delivery delivered Diabetes Fibromyalgia H/O neoplasm of uncertain behavior of ovary Heart murmur Left shoulder pain Malabsorption due to intolerance, not elsewhere classified Neck pain Obesity (BMI 30.0-34.9) Ovarian tumor Ovary removal, prophylactic Pelvic fracture Surgical History S/P laparoscopic sleeve gastrectomy S/P partial hysterectomy Family History Father Hypertension Parkinson's disease Mother Hypertension Diabetes Heart murmur Depression Sister Diabetes Arthritis Son No problems noted. Son No problems noted. Maternal Grandmother Heart disease Social History Alcohol intake: never Patient Tobacco Use Status: Former Tobacco user Cigarettes Per Day: 2 Physical Exam Vital Signs: Last Vital Signs Temp 96.9 F 09/02/22 13:03 Pulse 68 09/02/22 13:03 BP 133/60 09/02/22 13:03 Pulse Ox 95 09/02/22 13:03 Oxygen Delivery Method Room Air 09/02/22 13:03 BMI result Body Mass Index 33.9 Assessment & Plan Assessment & Plan (1) Obesity (BMI 30.0-34.9): Code(s): E66.9 - Obesity, unspecified (2) S/P laparoscopic sleeve gastrectomy: Code(s): Z98.84 - Bariatric surgery status Plan We had a long discussion (including Narda elizabeth nurse as black leather buffer) regarding a surgery for adjustment. She is not currently a candidate for revision based on BMI and she does not appear to have any problems of her sleeve currently that would suggest a problem with her anatomy. We discussed that strictly following the meal plan and incorporating some form of exercise in whatever fashion is comfortable and consistent for her would likely result in continued weight loss (albeit slow), and she actually still lost weight since last visit even though she did not exercise and was not completely consistent with meal plan. Pt became tearful and shared her frustration. Pt will speak with PCP regarding candidacy for weight loss medications. She has an appt next month. I offered to speak with PCP office if they have questions about her weight loss history. Gave her exercise handout and highlighed Sit and Be Fit, and Winsome montilla. Will be due for repeat labs in December. RTC at that time. Patient is obese and is not considered stable at this time. I spent a total of 30 minutes reviewing/updating records, examining the patient and counseling the patient on weight management as detailed above. Coding Level of Care Code Est Pt Level 4 (98661) Diagnoses Obesity (BMI 30.0-34.9) E66.9 S/P laparoscopic sleeve gastrectomy Z98.84
== END 2022-09-02 14:02 | disposition home or self-care (01) ==
PROVIDERS: PCP Internal Medicine; Visit Provider Physician Assistant Surgical
DX: E66.9 Obesity, unspecified (principal); Z98.84 Bariatric surgery status
CPT/HCPCS: 99214

== ENCOUNTER → 2022-09-02 12:57 | Outpatient (BNVA) | payer MEDICAID, SELFPAY | PROVIDERS: PCP Internal Medicine; Visit Provider Physician Assistant Surgical | DX: E66.9 Obesity, unspecified (principal); Z98.84 Bariatric surgery status; Z68.33 Body mass index [BMI] 33.0-33.9, adult | CPT/HCPCS: 99214 ==

== ENCOUNTER 2022-10-28 11:26 | Outpatient (AMB) | payer MEDICAID, SELFPAY ==
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
[2022-10-28 11:37] VITALS: BP 143/70; PULSE 62
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
== END 2022-10-28 13:38 | disposition home or self-care (01) ==
PROVIDERS: PCP Internal Medicine; Visit Provider Nurse Practitioner
DX: K58.2 Mixed irritable bowel syndrome (principal); K80.20 Calculus of gallbladder without cholecystitis without obstruction; R19.7 Diarrhea, unspecified; R11.2 Nausea with vomiting, unspecified; E66.01 Morbid (severe) obesity due to excess calories; Z68.41 Body mass index [BMI] 40.0-44.9, adult; Z98.84 Bariatric surgery status
CPT/HCPCS: 99213

== ENCOUNTER → 2022-10-28 11:26 | Outpatient (BNVA) | payer MEDICAID, SELFPAY | PROVIDERS: PCP Internal Medicine; Visit Provider Nurse Practitioner | DX: K58.2 Mixed irritable bowel syndrome (principal); K80.20 Calculus of gallbladder without cholecystitis without obstruction; R11.2 Nausea with vomiting, unspecified; E66.01 Morbid (severe) obesity due to excess calories; Z68.30 Body mass index [BMI] 30.0-30.9, adult; Z98.84 Bariatric surgery status | CPT/HCPCS: 99212 ==

== ENCOUNTER 2022-11-12 09:31 | Outpatient (REF) | payer MEDICAID, SELFPAY | END 2022-11-12 09:32 | disposition home or self-care (01) | LOC: HO.HOSX 09:31 | PROVIDERS: Visit Provider Physician Assistant | DX: Z13.89 Encounter for screening for other disorder (principal) ==

== ENCOUNTER 2022-11-13 08:51 | Outpatient (AMB) | payer MEDICAID, SELFPAY ==
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
== END 2022-11-13 09:27 | disposition home or self-care (01) ==
PROVIDERS: PCP Internal Medicine; Visit Provider Physician Assistant
DX: M54.16 Radiculopathy, lumbar region (principal)
CPT/HCPCS: 99204

== ENCOUNTER 2022-11-13 09:11 | Outpatient (REF) | payer MEDICAID, SELFPAY ==
--- NOTE | ~2022-11-13 | XR_ITS ---
EXAMINATION: XR HIP, LEFT CLINICAL INFORMATION: Pain. COMPARISON: Radiographs dated 01/26/2017. TECHNIQUE: AP and frog-leg lateral views of the left hip. FINDINGS: No fracture. Alignment is anatomic. Hip joint space is maintained. Soft tissues are unremarkable. XR/XR hip LT w PEL1V IMPRESSION: Normal left hip.
== END 2022-11-13 09:12 | disposition home or self-care (01) ==
LOC: HO.HOSX 09:11
PROVIDERS: Visit Provider Physician Assistant
DX: M25.552 Pain in left hip (principal); M54.16 Radiculopathy, lumbar region
CPT/HCPCS: 73502; 99212

== ENCOUNTER 2022-11-18 09:59 | Outpatient (AMB) | payer MEDICAID, SELFPAY ==
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
[2022-11-18 11:12] VITALS: BP 132/60; PULSE 89; O2SAT 97; BMI 30.1
== END 2022-11-18 11:34 | disposition home or self-care (01) ==
PROVIDERS: PCP Internal Medicine; Visit Provider Nurse Practitioner Family
DX: M54.2 Cervicalgia (principal); M47.812 Spondylosis without myelopathy or radiculopathy, cervical region; M54.12 Radiculopathy, cervical region; M79.7 Fibromyalgia
CPT/HCPCS: 99214

== ENCOUNTER → 2022-11-18 09:59 | Outpatient (BNVA) | payer MEDICAID, SELFPAY | PROVIDERS: PCP Internal Medicine; Visit Provider Nurse Practitioner Family | DX: M47.22 Other spondylosis with radiculopathy, cervical region (principal); M79.7 Fibromyalgia | CPT/HCPCS: 99212 ==

== ENCOUNTER 2022-11-19 10:33 | Outpatient (REF) | payer MEDICAID, SELFPAY | END 2022-11-19 10:34 | disposition home or self-care (01) | LOC: HO.XRAY 10:33 | PROVIDERS: PCP Internal Medicine; Visit Provider Nurse Practitioner Family | DX: M54.2 Cervicalgia (principal); M47.22 Other spondylosis with radiculopathy, cervical region | CPT/HCPCS: 72052 ==

== ENCOUNTER 2022-12-11 10:11 | Outpatient (AMB) | payer MEDICAID, SELFPAY ==
--- NOTE | 2022-12-11 10:38 | MHC.OFFVIS ---
Intake Vital Signs 12/11/22 10:42 Height 5 ft 6 in Weight 186 lb BMI 30.0 Intake Visit Reasons: Newprob-B/L shoulder pain Intake Note: Bilateral shoulder pain, states her left is worse. Pain is worsen when she is reaching up, heavy lifting, and at times just laying down. Patient has tried and failed P.T , injection with ortho and also with pain management. Left shoulder is limited ROM. Also has hx of neck pain and left frozen shoulder many years ago. Allergies Penicillins [PCN] Allergy (Intermediate, Verified 12/11/22 10:42) HIVES/RASH Mold Allergy (Unknown, Uncoded 12/11/22 10:42) Rash HPI Newprob-B/L shoulder pain HPI Details 52-year-old female, who is Tristanian speaking, presents in the office today for an evaluation of bilateral shoulder pain. The patient states the pain increases with reaching up, heavy lifting, and at time laying down. She claims she has tired and failed physical therapy, injections with both the orthopedic office and with pain management. She reports the left shoulder has limited ROM. Patient has a history of neck pain and frozen left shoulder for many years. [facility] Medical History Fibromyalgia Diabetes Ovary removal, prophylactic H/O neoplasm of uncertain behavior of ovary Ovarian tumor delivery delivered Left shoulder pain Heart murmur Neck pain Pelvic fracture Asthma Anxiety Arthritis Obesity (BMI 30.0-34.9) Malabsorption due to intolerance, not elsewhere classified Surgical History S/P partial hysterectomy S/P laparoscopic sleeve gastrectomy Family History Father Hypertension Parkinson's disease Mother Hypertension Diabetes Heart murmur Depression Sister Diabetes Arthritis Son No problems noted. Son No problems noted. 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 Abduction to 90 degrees. Pain with cross-body reach. Weakness with empty can. Negative drop arm. Denies numbness or tingling. Assessment & Plan Assessment & Plan (1) Cervical radiculopathy: Code(s): M54.12 - Radiculopathy, cervical region (2) Fibromyalgia: Code(s): M79.7 - Fibromyalgia Plan Ms. Amparo Malcolm is a 52-year-old female, who is Tristanian speaking, presents in the office today for an evaluation of bilateral shoulder pain. The patient states the pain increases with reaching up, heavy lifting, and at time laying down. She claims she has tired and failed physical therapy, injections with both the orthopedic office and with pain management. She reports the left shoulder has limited ROM. Patient has a history of neck pain. The patient will be referred to Physiatry for further evaluation of her C-spine with the possibility of referral to a spine surgeon. She has been treated by Pain Management with multiple cortisone injections with no relief. She states her pain and weakness mostly effect her left upper extremity. She states the pain and weakness are now affecting the right upper extremity and progressing. Follow up will be PRN, or sooner if needed. X-rays of the bilateral shoulders obtained while in the office today and reviewed by me, Isabella Henriquez PA-C, revealed no acute fractures or dislocation. Left shoulder arthritic changes, bone spurring at the superior aspect of the humeral head at the glenohumeral joint. Orders: Orders XR shoulder LT min 2V Today M25.519 - Pain in unspecified shoulder XR shoulder RT min 2V Today M25.519 - Pain in unspecified shoulder Patient Instructions: Scribed for Isabella Henriquez PA-C by Patricia Wells medical transcription supervisor, on 12/11/2022 at 10:17 am, EST. Coding Level of Care Code New Pt Level 4 (62530) Diagnoses Cervical radiculopathy M54.12 Fibromyalgia M79.7
== END 2022-12-11 10:56 | disposition home or self-care (01) ==
PROVIDERS: PCP Internal Medicine; Visit Provider Physician Assistant
DX: M54.12 Radiculopathy, cervical region (principal); M79.7 Fibromyalgia
CPT/HCPCS: 99214

== ENCOUNTER 2022-12-11 15:36 | Outpatient (REF) | payer MEDICAID, SELFPAY ==
--- NOTE | ~2022-12-11 | XR_ITS ---
EXAMINATION: XR SHOULDER, RIGHT CLINICAL INFORMATION: Right shoulder pain, limited range of motion. COMPARISON: 01/01/2022 TECHNIQUE: AP neutral, AP Grashey and axial views of the right shoulder. FINDINGS: Acromioclavicular and glenohumeral alignment preserved. Very faint, punctate calcifications in the soft tissues along the superior lateral aspect of the humeral head. Mild hypertrophic change along the inferior aspect of the glenoid. XR/XR shoulder LT min 2V IMPRESSION: Very faint, punctate calcifications in the soft tissues along the superior lateral aspect of the humeral head, raising the possibility of rotator cuff pathology. Mild hypertrophic change along the inferior aspect of the glenoid.
--- NOTE | ~2022-12-11 | XR_ITS ---
EXAMINATION: XR SHOULDER, RIGHT CLINICAL INFORMATION: Right shoulder pain, limited range of motion. COMPARISON: 01/01/2022 TECHNIQUE: AP neutral, AP Grashey and axial views of the right shoulder. FINDINGS: Acromioclavicular and glenohumeral alignment preserved. Very faint, punctate calcifications in the soft tissues along the superior lateral aspect of the humeral head. Mild hypertrophic change along the inferior aspect of the glenoid. XR/XR shoulder RT min 2V IMPRESSION: Very faint, punctate calcifications in the soft tissues along the superior lateral aspect of the humeral head, raising the possibility of rotator cuff pathology. Mild hypertrophic change along the inferior aspect of the glenoid.
== END 2022-12-11 15:37 | disposition home or self-care (01) ==
LOC: HO.HOSX 15:36
PROVIDERS: Visit Provider Physician Assistant
DX: M54.12 Radiculopathy, cervical region (principal); M79.7 Fibromyalgia; M25.511 Pain in right shoulder; M25.512 Pain in left shoulder
CPT/HCPCS: 73030; 99212

== ENCOUNTER 2022-12-18 09:02 | Outpatient (AMB) | payer MEDICAID, SELFPAY ==
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
== END 2022-12-18 10:09 | disposition home or self-care (01) ==
PROVIDERS: PCP Internal Medicine; Visit Provider Physical Medicine & Rehabilitation
DX: M70.62 Trochanteric bursitis, left hip (principal); M76.32 Iliotibial band syndrome, left leg; M53.3 Sacrococcygeal disorders, not elsewhere classified
CPT/HCPCS: 99204

== ENCOUNTER → 2022-12-18 09:02 | Outpatient (BNVA) | payer MEDICAID, SELFPAY | PROVIDERS: PCP Internal Medicine; Visit Provider Physical Medicine & Rehabilitation | DX: M70.62 Trochanteric bursitis, left hip (principal); M76.32 Iliotibial band syndrome, left leg; M53.3 Sacrococcygeal disorders, not elsewhere classified | CPT/HCPCS: 99202 ==

== ENCOUNTER 2022-12-22 08:49 | Outpatient (AMB) | payer MEDICAID, SELFPAY ==
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
[2022-12-22 08:54] VITALS: BP 127/58; PULSE 67; O2SAT 98; BMI 30.1
== END 2022-12-22 09:04 | disposition home or self-care (01) ==
PROVIDERS: PCP Internal Medicine; Visit Provider Nurse Practitioner Family
DX: M54.2 Cervicalgia (principal); M47.812 Spondylosis without myelopathy or radiculopathy, cervical region; M79.7 Fibromyalgia; M25.512 Pain in left shoulder; G89.29 Other chronic pain; M79.18 Myalgia, other site
CPT/HCPCS: 99214

== ENCOUNTER → 2022-12-22 08:49 | Outpatient (BNVA) | payer MEDICAID, SELFPAY | PROVIDERS: PCP Internal Medicine; Visit Provider Nurse Practitioner Family | DX: M47.812 Spondylosis without myelopathy or radiculopathy, cervical region (principal); M79.7 Fibromyalgia; G89.29 Other chronic pain; M25.512 Pain in left shoulder | CPT/HCPCS: 99212 ==

== ENCOUNTER 2022-12-30 12:27 | Outpatient (AMB) | payer MEDICAID, SELFPAY ==
--- NOTE | 2022-12-30 12:47 | MHC.OFFVISWM ---
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 Allergies Penicillins [PCN] Allergy (Intermediate, Verified 12/18/22 09:43) HIVES/RASH Mold Allergy (Unknown, Uncoded 12/18/22 09:43) Rash Medication List - Last Reconciled 12/30/22 by MARRY Moore albuterol sulfate 90 mcg/actuation 2 puffs inhalation QID alcohol swabs 1 pad topical BID artifi.tears(hypromellose)(PF) 0.3% 1 drp ophthalmic (eye) Q4-6H PRN atorvastatin 40 mg PO DAILY blood sugar diagnostic (FreeStyle Lite Strips) As directed canagliflozin (Invokana) 100 mg PO QAM capsaicin 0.025% (Capsicum) 1 patch topical BID PRN cholecalciferol (vitamin D3) 50 mcg PO DAILY diclofenac sodium 1% 2 grams topical QID dicyclomine 20 mg PO QID estradiol 0.01%(0.1mg/gram) 1 g vaginal 2XW famotidine 20 mg PO BID fluticasone propionate 110 mcg/actuation (Flovent HFA) 1 puff inhalation BID gabapentin 600 mg PO BID glipizide ER 5 mg PO DAILY hydrochlorothiazide 25 mg PO DAILY ibuprofen 600 mg PO TID lancets (FreeStyle Lancets) As directed lidocaine 5% (Lidoderm) 1 patch topical DAILY lidocaine 5% 1 patch topical DAILY linaclotide (Linzess) 72 mcg PO QAM lorazepam 0.5 mg PO DAILY PRN meclizine 25 mg PO TID PRN melatonin 5 mg PO BEDTIME PRN metformin ER 1,000 mg PO BID methocarbamol 750 mg PO BID PRN 30 days montelukast 10 mg PO BEDTIME multivitamin 1 cap PO DAILY naproxen 500 mg PO BID PRN oxycodone 5 mg PO Q6H PRN peg 3350-electrolytes 236-22.74-6.74 -5.86 gram (Golytely) 240 mL PO Q10M 1 day polyvinyl alcohol 1.4% (Artificial Tears (polyvinyl alcohol)) 1 drp ophthalmic (eye) TID-QID sumatriptan succinate 50 mg PO ONCE PRN terbinafine HCl 250 mg PO QAM thiamine HCl (vitamin B1) 100 mg PO DAILY trazodone 100 mg PO BEDTIME valacyclovir 500 mg PO BID venlafaxine ER 75 mg PO DAILY PRN venlafaxine ER 37.5 mg PO DAILY vitamin A palmitate 10,000 units PO DAILY HPI HPI Comments History of Present Illness Details This?is a?52?yo female who is s/p LSG 07/15/2018. Presents for 4.5 year post op visit. Weight at last visit on 09/02/2022 was 179.2 pounds with a BMI of 33.9, weight today is 186.4 pounds, representing a 7.2 pound weight gain with a BMI today of 34.6.? No complaints of nausea, emesis, abdominal pain or reflux, or constipation. Pt spoke to PCP about weight loss meds, as we had discussed at last visit. According to pt PCP refused to prescribe weight loss meds and referred her to a bariatric surgeon in [place]. However pt did not want to be seen by a different surgeon and wants to continue in our practice. She still wants a revision. She again becomes tearful when expressing her frustration at not being able to get a revision. Does see a psychiatrist. Present meal plan includes: breakfast- 2 eggs or oatmeal lunch- Premier premade 30g shake snack- Oikos yogurt dinner- 3oz protein, 3oz salad or some rice Exercise routine includes: limited by chronic pain PFSH Medical History Fibromyalgia Diabetes Ovary removal, prophylactic H/O neoplasm of uncertain behavior of ovary Ovarian tumor delivery delivered Left shoulder pain Heart murmur Neck pain Pelvic fracture Asthma Anxiety Arthritis Obesity (BMI 30.0-34.9) Malabsorption due to intolerance, not elsewhere classified Surgical History S/P partial hysterectomy S/P laparoscopic sleeve gastrectomy Family History Father Hypertension Parkinson's disease Mother Hypertension Diabetes Heart murmur Depression Sister Diabetes Arthritis Son No problems noted. Son No problems noted. 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 She has not been consistent with following meal plan or recommended exercise regimen. New meal plan with adequate protein: 8-10am Orgain shake, 2 scoops in 8oz unsweetened almond milk 11am-1pm Orgain 1 scoop 2-4pm Orgain 1 scoop 6pm dinner- 6 forks protein, 6 forks salad/veg 8-10pm ZP bar Recommended increasing hours spent sleeping; pt currently only getting 6 hrs (wakes at 6am, bed at 12pm) Resume Sit and Be Fit videos. Labs ordered. RTC 3 months to monitor progress. Patient is obese and is not considered stable at this time. I spent a total of 30 minutes reviewing/updating records, examining the patient and counseling the patient on weight management as detailed above. Orders: Orders IRON PROFILE Today Z98.84 - Bariatric surgery status Vitamin B1 Today Z98.84 - Bariatric surgery status Ferritin Today Z98.84 - Bariatric surgery status PTHI Today Z.84 - Bariatric surgery status Insulin Today Z98.84 - Bariatric surgery status Lipid Panel Today Z.84 - Bariatric surgery status Complete Blood Count Auto Diff Today Z98.84 - Bariatric surgery status Vitamin B12 and Folate Today Z98.84 - Bariatric surgery status Zinc Today Z98.84 - Bariatric surgery status Comprehensive Met. Panel Today Z.84 - Bariatric surgery status Vitamin A Today Z.84 - Bariatric surgery status C Reactive Protein Today Z.84 - Bariatric surgery status TSH reflex Free T4 Today Z98.84 - Bariatric surgery status Vitamin D 25-OH Total Today Z.84 - Bariatric surgery status Hemoglobin A1c Today Z.84 - Bariatric surgery status Coding Level of Care Code Est Pt Level 4 (59663) Diagnoses S/P laparoscopic sleeve gastrectomy Z. Obesity (BMI 30.0-34.9) E66.9
[2022-12-30 12:56] VITALS: BP 135/58; PULSE 65; TEMP 36.1; O2SAT 95; BMI 34.6
== END 2022-12-30 13:35 | disposition home or self-care (01) ==
PROVIDERS: PCP Internal Medicine; Visit Provider Physician Assistant Surgical
DX: E66.9 Obesity, unspecified (principal); Z68.34 Body mass index [BMI] 34.0-34.9, adult; Z90.3 Acquired absence of stomach [part of]; Z98.84 Bariatric surgery status
CPT/HCPCS: 99214

== ENCOUNTER → 2022-12-30 12:27 | Outpatient (BNVA) | payer MEDICAID, SELFPAY | PROVIDERS: PCP Internal Medicine; Visit Provider Physician Assistant Surgical | DX: E66.9 Obesity, unspecified (principal); Z68.34 Body mass index [BMI] 34.0-34.9, adult; Z98.84 Bariatric surgery status | CPT/HCPCS: 99212 ==

== ENCOUNTER → 2023-01-19 10:43 | Outpatient (BNVA) | payer MEDICAID, SELFPAY | PROVIDERS: PCP Internal Medicine; Visit Provider Physician Assistant ==

== ENCOUNTER 2023-01-22 09:24 | Outpatient (REF) | payer MEDICAID, SELFPAY ==
[2023-01-22 10:59] LABS: MANUAL DIFF FLAG NO
[2023-01-22 12:33] LABS: Basophils Absolute Auto 0.1 X10*3/uL (0.0-0.2); Basophils Percent Auto 1.1 % (0-2); Eosinophils Absolute Auto 0.1 X10*3/uL (0.0-0.4); Hematocrit 42.5 % (37.0-47.0); Hemoglobin 13.8 g/dl (12.0-16.0); Imm Gran Abs Auto 0.02 X10*3/uL (0.00-0.03); Imm Gran Pct Auto 0.3 % (0.0-0.4); Mean Corpuscular HGB Conc 32.5 g/dl (31.0-35.0); Mean Corpuscular Hemoglobin 29.8 pg (27.0-33.0); Mean Corpuscular Volume 91.8 fL (80.0-98.0); Monocytes Absolute Auto 0.4 X10*3/uL (0.1-1.2); Monocytes Percent Auto 6.7 % (2-11); Neutrophils Absolute Auto 3.5 x10*3/uL (2.0-8.3); Neutrophils Percent Auto 57.9 % (45-73); Platelet Count 259 X10*3/uL (160-400); Red Blood Count 4.63 X10*6/uL (4.20-5.50); White Blood Count 6.1 X10*3/uL (4.8-10.8)
[2023-01-22 13:00] LABS: Estimated Average Glucose 166 mg/dL; Hemoglobin A1c % 7.4 % (<6.0)
[2023-01-22 13:13] LABS: Alanine Aminotransferase 19 U/L (0-31); Albumin Level 4.1 g/dL (3.5-5.0); Alkaline Phosphatase 129 U/L (39-117); Anion Gap 11 (12-20); Aspartate Amino Transferase 17 U/L (5-31); Bilirubin Total 1.3 mg/dL (0.0-1.0); Blood Urea Nitrogen 13 mg/dL (9-16); C Reactive Protein 0.86 mg/dL (< or = 0.50); Calcium 9.2 mg/dL (8.4-10.2); Carbon Dioxide 30 mmol/L (22-29); Chloride 104 mmol/L (96-108); Cholesterol 196 mg/dL (<200); Estimated Glomerular Filt Rate > 60; Glucose Random 150 mg/dL (60-115); HDL Cholesterol 47 mg/dL (>40); Iron 106 mcg/dL (30-160); LDL Cholesterol Calculated 135 mg/dL (<100); Percent Iron Saturation 41 % (15-50); Potassium 4.2 mmol/L (3.3-5.1); Sodium 141 mmol/L (135-145); Total Iron Binding Capacity 261 mcg/dL (228-428); Total Protein 7.6 g/dL (6.5-8.0); Triglycerides 71 mg/dL (<150); Unsaturated Iron Binding 155 ug/dL
[2023-01-22 13:23] LABS: Ferritin 59 ng/mL (10-250); Insulin 3 uU/mL (2-29); TSH reflex Free T4 1.25 uIU/mL (0.32-4.0); Vitamin D 25-OH Total 24.6 ng/mL (>30)
[2023-01-22 13:27] LABS: Folate 8.1 ng/mL (> or = 4.0); Vitamin B12 423 pg/mL (200-900)
[2023-01-27 00:09] LABS: Zinc 69 mcg/dL (60-130)
[2023-01-28 00:34] LABS: Vitamin A 36 mcg/dL (38-98)
[2023-01-28 15:12] LABS: Vitamin B1 12 nmol/L (8-30)
== END 2023-01-22 09:25 | disposition home or self-care (01) ==
LOC: HO.LAB 09:24
PROVIDERS: Absent Provider Physician Assistant Surgical; PCP Internal Medicine; Visit Provider Physical Medicine & Rehabilitation
DX: M70.62 Trochanteric bursitis, left hip (principal); M76.32 Iliotibial band syndrome, left leg; M53.3 Sacrococcygeal disorders, not elsewhere classified; Z98.84 Bariatric surgery status; Z79.899 Other long term (current) drug therapy
CPT/HCPCS: 36415; 80053; 80061; 82306; 82607; 82728; 82746; 83036; 83525; 83540; 84425; 84443; 84590; 84630; 85025; 86140; 99212

== ENCOUNTER 2023-01-22 09:24 | Outpatient (AMB) | payer MEDICAID, SELFPAY ==
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
[2023-01-22 09:50] VITALS: BMI 35.7
== END 2023-01-22 10:21 | disposition home or self-care (01) ==
PROVIDERS: PCP Internal Medicine; Visit Provider Physical Medicine & Rehabilitation
DX: M70.62 Trochanteric bursitis, left hip (principal); M53.3 Sacrococcygeal disorders, not elsewhere classified; M76.32 Iliotibial band syndrome, left leg
CPT/HCPCS: 99213

== ENCOUNTER 2023-01-26 12:30 | Outpatient (AMB) | payer MEDICAID, SELFPAY ==
--- NOTE | 2023-01-26 12:45 | MHC.OFFVISWM ---
Intake VS Expanded 01/26/23 12:55 BP 113/55 L Blood Pressure Location Rt brachial Blood Pressure Position Sitting Pulse 64 Pulse Source Pulse Oximeter Temp 96.8 F Temperature Source Tympanic Pulse Oximetry 96 Oxygen Delivery Method Room Air Height 5 ft 1 in Weight 187 lb 3.2 oz BMI 35.4 Body Fat % 41.6 Body Fat Mass 77.8 Fat Free Mass 109.4 Visceral Fat Rating 11.0 Body Water % 41.6 Body Water Mass 77.8 Muscle Mass/Score 103.8 Basal Metabolic Rate/Score 1,515 Intake Visit Reasons: (ov) po lsg 07/15/18 Allergies Penicillins [PCN] Allergy (Intermediate, Verified 01/26/23 12:46) HIVES/RASH Mold Allergy (Unknown, Uncoded 01/26/23 12:46) Rash Medication List - Last Reconciled 01/26/23 by MARRY Moore albuterol sulfate 90 mcg/actuation 2 puffs inhalation QID alcohol swabs 1 pad topical BID artifi.tears(hypromellose)(PF) 0.3% 1 drp ophthalmic (eye) Q4-6H PRN atorvastatin 40 mg PO DAILY blood sugar diagnostic (FreeStyle Lite Strips) As directed canagliflozin (Invokana) 100 mg PO QAM capsaicin 0.025% (Capsicum) 1 patch topical BID PRN cholecalciferol (vitamin D3) 50 mcg PO DAILY diclofenac sodium 1% 2 grams topical QID dicyclomine 20 mg PO QID estradiol 0.01%(0.1mg/gram) 1 g vaginal 2XW famotidine 20 mg PO BID fluticasone propionate 110 mcg/actuation (Flovent HFA) 1 puff inhalation BID gabapentin 600 mg PO BID glipizide ER 5 mg PO DAILY hydrochlorothiazide 25 mg PO DAILY ibuprofen 600 mg PO TID lancets (FreeStyle Lancets) As directed lidocaine 5% (Lidoderm) 1 patch topical DAILY lidocaine 5% 1 patch topical DAILY linaclotide (Linzess) 72 mcg PO QAM lorazepam 0.5 mg PO DAILY PRN meclizine 25 mg PO TID PRN melatonin 5 mg PO BEDTIME PRN metformin ER 1,000 mg PO BID methocarbamol 750 mg PO BID PRN 30 days montelukast 10 mg PO BEDTIME multivitamin 1 cap PO DAILY naproxen 500 mg PO BID PRN oxycodone 5 mg PO Q6H PRN peg 3350-electrolytes 236-22.74-6.74 -5.86 gram (Golytely) 240 mL PO Q10M 1 day polyvinyl alcohol 1.4% (Artificial Tears (polyvinyl alcohol)) 1 drp ophthalmic (eye) TID-QID sumatriptan succinate 50 mg PO ONCE PRN terbinafine HCl 250 mg PO QAM thiamine HCl (vitamin B1) 100 mg PO DAILY trazodone 100 mg PO BEDTIME valacyclovir 500 mg PO BID venlafaxine ER 75 mg PO DAILY PRN venlafaxine ER 37.5 mg PO DAILY vitamin A palmitate 10,000 units PO DAILY HPI HPI Comments History of Present Illness Details Pt was seen one month ago and again inquired about revision surgery. At the time her BMI was <35 and she was not following a strict meal plan. Gave pt the following meal plan/instructions: 8-10am Orgain shake, 2 scoops in 8oz unsweetened almond milk 11am-1pm Orgain 1 scoop 2-4pm Orgain 1 scoop 6pm dinner- 6 forks protein, 6 forks salad/veg 8-10pm ZP bar Recommended increasing hours spent sleeping; pt currently only getting 6 hrs (wakes at 6am, bed at 12pm) Resume Sit and Be Fit videos. Since last visit, pt has gained 1lb and BMI is now >35. Reports that once she weighed in with BMI over 35, she started meal plan that I provided. Little by little , has not followed it exactly, the body is taking time to get adjusted. Has not exercised due to lower back pain and hip pain. Getting physical therapy, going to get steroid injections. Sees GI, reports they did some tests which did not find anything, continues to have some spastic pain. Has a dx of IBS. [facility] Medical History Fibromyalgia Diabetes Ovary removal, prophylactic H/O neoplasm of uncertain behavior of ovary Ovarian tumor delivery delivered Left shoulder pain Heart murmur Neck pain Pelvic fracture Asthma Anxiety Arthritis Obesity (BMI 30.0-34.9) Malabsorption due to intolerance, not elsewhere classified Surgical History S/P partial hysterectomy S/P laparoscopic sleeve gastrectomy Family History Father Hypertension Parkinson's disease Mother Hypertension Diabetes Heart murmur Depression Sister Diabetes Arthritis Son No problems noted. Son No problems noted. 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 Explained the importance of this via conference services director. Her intermittent abdominal pain/spasms will likely improve if she follows the meal plan as directed. Labs reviewed. HgbA1C increased. Low vit D (supplemented). Vit A/B1 pending. Will email Dr. Mackay regarding pt's circumstances. Made it clear to pt that I am not guaranteeing that he will agree to revision. Patient is obese and is not considered stable at this time. I spent a total of 30 minutes reviewing/updating records, examining the patient and counseling the patient on weight management as detailed above. Medications: New cholecalciferol (vitamin D3) 50 mcg PO DAILY 90 caps 3RF Coding Level of Care Code Est Pt Level 4 (70256) Diagnoses S/P laparoscopic sleeve gastrectomy Z98.84 Obesity (BMI 30.0-34.9) E66.9
[2023-01-26 12:55] VITALS: BP 113/55; PULSE 64; TEMP 36; O2SAT 96; BMI 35.4
== END 2023-01-26 13:28 | disposition home or self-care (01) ==
PROVIDERS: PCP Internal Medicine; Visit Provider Physician Assistant Surgical
DX: E66.9 Obesity, unspecified (principal); Z68.35 Body mass index [BMI] 35.0-35.9, adult; Z90.3 Acquired absence of stomach [part of]; Z98.84 Bariatric surgery status
CPT/HCPCS: 99214

== ENCOUNTER → 2023-01-26 12:30 | Outpatient (BNVA) | payer MEDICAID, SELFPAY | PROVIDERS: PCP Internal Medicine; Visit Provider Physician Assistant Surgical | DX: E66.9 Obesity, unspecified (principal); Z68.35 Body mass index [BMI] 35.0-35.9, adult; Z98.84 Bariatric surgery status | CPT/HCPCS: 99212 ==

== ENCOUNTER 2023-02-04 10:07 | Outpatient (REF) | payer MEDICAID, SELFPAY ==
--- NOTE | ~2023-02-04 | XR_ITS ---
Examination: Lumbar spine and left hip. Clinical indications: Low back pain and left hip pain. COMPARISON: None. TECHNIQUE: Lumbar spine 3 views. Left hip 2 views. FINDINGS: LUMBAR SPINE: There is normal lumbar lordosis. The vertebral heights, alignment and disc heights are normal. No visible acute fracture, dislocation or subluxation seen. SI joints are symmetrical and unremarkable. The paravertebral soft tissues are normal. LEFT HIP: The left hip joint space is maintained normal. No spurring, bony erosive changes or loose bodies. No visible acute fracture, dislocation or subluxation seen. The soft tissues are normal. XR/XR hip LT min 2V IMPRESSION: Unremarkable lumbar spine exam. Unremarkable left hip exam.
--- NOTE | ~2023-02-04 | XR_ITS ---
Examination: Lumbar spine and left hip. Clinical indications: Low back pain and left hip pain. COMPARISON: None. TECHNIQUE: Lumbar spine 3 views. Left hip 2 views. FINDINGS: LUMBAR SPINE: There is normal lumbar lordosis. The vertebral heights, alignment and disc heights are normal. No visible acute fracture, dislocation or subluxation seen. SI joints are symmetrical and unremarkable. The paravertebral soft tissues are normal. LEFT HIP: The left hip joint space is maintained normal. No spurring, bony erosive changes or loose bodies. No visible acute fracture, dislocation or subluxation seen. The soft tissues are normal. XR/XR lumbar spine 2-3V IMPRESSION: Unremarkable lumbar spine exam. Unremarkable left hip exam.
== END 2023-02-04 10:08 | disposition home or self-care (01) ==
LOC: HO.HHCX 10:07
PROVIDERS: Visit Provider Internal Medicine
DX: M25.551 Pain in right hip (principal); M54.50 Low back pain, unspecified
CPT/HCPCS: 72100; 73502

== ENCOUNTER 2023-02-25 07:46 | Outpatient (REF) | payer MEDICAID, SELFPAY ==
--- NOTE | ~2023-02-25 | FL_ITS ---
EXAMINATION: XR FLUOROSCOPY UPPER GI WITH AIR CLINICAL INFORMATION: Epigastric pain. History of sleeve gastrectomy. COMPARISON: None TECHNIQUE: Fluoroscopic air contrast upper GI examination was performed utilizing standard techniques with thin and thick barium and effervescent granules. Numerous spot images were obtained. FINDINGS: Dual and single contrast images of the esophagus demonstrate normal caliber, contour, and mucosal pattern. No evidence of stricture, mass, or ulcerations identified. Esophageal peristalsis was normal. A small type I hiatal hernia is present. No significant gastroesophageal reflux was seen during the course of the examination and on reflux views. Dual contrast and single contrast images of the stomach demonstrate post surgical changes consistent with prior sleeve gastrectomy. Mucosal pattern is normal, without evidence of mass, ulceration, or other abnormality. Contrast freely passed into the gastric antrum and duodenal bulb without delay. Single and air-contrast images of the duodenal bulb demonstrate no abnormality. The duodenal sweep has a mildly thickened fold pattern as does the proximal jejunum, findings suggesting a mild enteritis. FLUOROSCOPY TIME: 2 minutes 33 seconds Number of Spot Images: 13 Number of Cine: 9 DOSE AREA PRODUCT: 2108 uGy-m2 (microgray-meter squared) FL/FL upper GI w air IMPRESSION: 1. Small type I hiatal hernia. 2. Postsurgical changes consistent with history of sleeve gastrectomy. 3. Mildly thickened folds noted in the duodenum and proximal jejunum, findings suggesting mild enteritis. This procedure was performed by Casa Monreal PA-C, and supervised by Dr. Mckee
== END 2023-02-25 07:47 | disposition home or self-care (01) ==
LOC: HO.XRAY 07:46
PROVIDERS: PCP Internal Medicine; Visit Provider Physician Assistant Surgical
DX: Z98.84 Bariatric surgery status (principal)
CPT/HCPCS: 74246

== ENCOUNTER → 2023-02-25 07:48 | Outpatient (BNV) | payer MEDICAID, SELFPAY | PROVIDERS: PCP Internal Medicine; Visit Provider Radiology Diagnostic Radiology | DX: R10.13 Epigastric pain (principal) | CPT/HCPCS: 74246 ==

== ENCOUNTER 2023-03-26 11:33 | Outpatient (AMB) | payer MEDICAID, SELFPAY ==
--- NOTE | 2023-03-26 11:55 | MHC.OFFVISWM ---
Intake VS Expanded 03/26/23 12:02 BP 115/57 L Blood Pressure Location Rt brachial Blood Pressure Position Sitting Pulse 64 Pulse Source Pulse Oximeter Temp 96.7 F L Temperature Source Tympanic Pulse Oximetry 97 Oxygen Delivery Method Room Air Height 5 ft 1 in Weight 191 lb BMI 36.1 Body Fat % 41.5 Body Fat Mass 79.2 Fat Free Mass 111.8 Visceral Fat Rating 11.0 Body Water % 41.6 Body Water Mass 79.4 Muscle Mass/Score 106.0 Basal Metabolic Rate/Score 1,547 Intake Visit Reasons: (OV) PO LSG 07/15/18 Allergies Penicillins [PCN] Allergy (Intermediate, Verified 01/26/23 12:46) HIVES/RASH Mold Allergy (Unknown, Uncoded 01/26/23 12:46) Rash Medication List - Last Reconciled 03/26/23 by MARRY Moore albuterol sulfate 90 mcg/actuation 2 puffs inhalation QID alcohol swabs 1 pad topical BID artifi.tears(hypromellose)(PF) 0.3% 1 drp ophthalmic (eye) Q4-6H PRN atorvastatin 40 mg PO DAILY blood sugar diagnostic (FreeStyle Lite Strips) As directed canagliflozin (Invokana) 100 mg PO QAM capsaicin 0.025% (Capsicum) 1 patch topical BID PRN cholecalciferol (vitamin D3) 50 mcg PO DAILY diclofenac sodium 1% 2 grams topical QID dicyclomine 20 mg PO QID estradiol 0.01%(0.1mg/gram) 1 g vaginal 2XW famotidine 20 mg PO BID fluticasone propionate 110 mcg/actuation (Flovent HFA) 1 puff inhalation BID gabapentin 600 mg PO BID glipizide ER 5 mg PO DAILY hydrochlorothiazide 25 mg PO DAILY ibuprofen 600 mg PO TID lancets (FreeStyle Lancets) As directed lidocaine 5% (Lidoderm) 1 patch topical DAILY lidocaine 5% 1 patch topical DAILY linaclotide (Linzess) 72 mcg PO QAM lorazepam 0.5 mg PO DAILY PRN meclizine 25 mg PO TID PRN melatonin 5 mg PO BEDTIME PRN metformin ER 1,000 mg PO BID methocarbamol 750 mg PO BID PRN 30 days montelukast 10 mg PO BEDTIME multivitamin 1 cap PO DAILY naproxen 500 mg PO BID PRN oxycodone 5 mg PO Q6H PRN peg 3350-electrolytes 236-22.74-6.74 -5.86 gram (Golytely) 240 mL PO Q10M 1 day polyvinyl alcohol 1.4% (Artificial Tears (polyvinyl alcohol)) 1 drp ophthalmic (eye) TID-QID sumatriptan succinate 50 mg PO ONCE PRN terbinafine HCl 250 mg PO QAM thiamine HCl (vitamin B1) 100 mg PO DAILY trazodone 100 mg PO BEDTIME valacyclovir 500 mg PO BID venlafaxine ER 75 mg PO DAILY PRN venlafaxine ER 37.5 mg PO DAILY vitamin A palmitate 10,000 units PO DAILY HPI HPI Comments History of Present Illness Details Pt is seen in followup for weight management after sleeve gastrectomy 07/15/2018. She has gained 3.8lbs since last office visit. Discussed her case with Dr. Hill who recommended UGI. Results were the following: IMPRESSION: 1. Small type I hiatal hernia. 2. Postsurgical changes consistent with history of sleeve gastrectomy. 3. Mildly thickened folds noted in the duodenum and proximal jejunum, findings suggesting mild enteritis. Pt's current meal plan includes the followin-10am Orgain shake, 2 scoops in 8oz unsweetened almond milk 11am-1pm Orgain 1 scoop 2-4pm Orgain 1 scoop 6pm dinner- 6 forks protein, 6 forks salad/veg 8-10pm ZP bar Recommended increasing hours spent sleeping; pt currently only getting 6 hrs (wakes at 6am, bed at 12pm) Resume Sit and Be Fit videos. Pt reports dealing with family issues since last visit, issues with her mother, so I only started 3 days ago. She is confused about how to measure the shake with the scoop. Not finishing bars due to constipation. Has not exercised due to lower back pain and hip pain. Getting physical therapy, going to get steroid injections. Continues to have some spastic abdominal pain. Has a dx of IBS. Denies frequent use of NSAIDs. [facility] Medical History Fibromyalgia Diabetes Ovary removal, prophylactic H/O neoplasm of uncertain behavior of ovary Ovarian tumor delivery delivered Left shoulder pain Heart murmur Neck pain Pelvic fracture Asthma Anxiety Arthritis Obesity (BMI 30.0-34.9) Malabsorption due to intolerance, not elsewhere classified Surgical History S/P partial hysterectomy S/P laparoscopic sleeve gastrectomy Family History Father Hypertension Parkinson's disease Mother Hypertension Diabetes Heart murmur Depression Sister Diabetes Arthritis Son No problems noted. Son No problems noted. 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 Will also initiate PPI as pt does not appear to be on one, considering UGI results of possible enteritis in duodenum. Pt prefers to dc bars and switch to another shake. 8-10am Orgain shake, 2 scoops in 8oz unsweetened almond milk 11am-1pm Orgain 1 scoop 2-4pm Orgain 1 scoop 6pm dinner- 7 forks protein, 7 forks salad/veg 8-10pm Orgain 1 scoop Reinterated that needs to follow provided meal plan exactly, and increase exercise. Explained the importance of this via players club representative. RTC once endoscopy completed. Patient is obese and is not considered stable at this time. I spent a total of 30 minutes reviewing/updating records, examining the patient and counseling the patient on weight management as detailed above. Medications: New pantoprazole 40 mg PO DAILY 90 tabs 1RF Coding Level of Care Code Est Pt Level 4 (14005) Diagnoses Obesity (BMI 30.0-34.9) E66.9 S/P laparoscopic sleeve gastrectomy Z98.84
[2023-03-26 12:02] VITALS: BP 115/57; PULSE 64; TEMP 35.9; O2SAT 97; BMI 36.1
== END 2023-03-26 13:10 | disposition home or self-care (01) ==
PROVIDERS: PCP Internal Medicine; Visit Provider Physician Assistant Surgical
DX: E66.9 Obesity, unspecified (principal); Z68.39 Body mass index [BMI] 39.0-39.9, adult
CPT/HCPCS: 99214

== ENCOUNTER → 2023-03-26 11:33 | Outpatient (BNVA) | payer MEDICAID, SELFPAY | PROVIDERS: PCP Internal Medicine; Visit Provider Physician Assistant Surgical | DX: E66.9 Obesity, unspecified (principal); Z98.84 Bariatric surgery status; Z68.36 Body mass index [BMI] 36.0-36.9, adult | CPT/HCPCS: 99212 ==

== ENCOUNTER 2023-04-28 08:43 | Day surgery (SDC) | payer MEDICAID, SELFPAY ==
--- NOTE | 2023-04-20 12:13 | HO.ANESPROP2 ---
Documented by User: Asia Swain NP 04/20/23 12:18 HPI - Anesthesia Eval Consult details Narrative: 52yo F for Upper Endoscopy Anesthesia Pre-Procedure Meds Is the patient on any of the following meds?: Any other SGL-1 drugs or drugs that delay gastric emptying (Canagliflozin) PMFSH Active Problems Active Problems: All Active Problems (Updated 12/18/22 @ 10:15 by Renata Serrano MD) Sacroiliac joint dysfunction of left side (Acute) ITB syndrome (Acute) Trochanteric bursitis of left hip (Acute) Cervical radiculopathy (Acute) Cervical spondylosis (Acute) Lumbar radicular pain (Acute) Fibromyalgia (Acute) Irritable bowel syndrome with both constipation and diarrhea (Acute) Gallstones (Acute) Diarrhea (Acute) Nausea and vomiting (Acute) Upper abdominal pain (Acute) Chronic left shoulder pain (Acute) Varicose veins of both lower extremities (Acute) Depression with anxiety (Acute) Chronic low back pain (Acute) Myofascial pain (Acute) Cervicalgia (Acute) Morbid obesity with BMI of 40.0-44.9, adult (Acute) S/P laparoscopic sleeve gastrectomy (Acute) Malabsorption due to intolerance, not elsewhere classified (Acute) Obesity (BMI 30.0-34.9) (Acute) Past Medical History Medical History Fibromyalgia Diabetes Ovary removal, prophylactic H/O neoplasm of uncertain behavior of ovary Ovarian tumor delivery delivered Left shoulder pain Heart murmur Neck pain Pelvic fracture Asthma Anxiety Arthritis Obesity (BMI 30.0-34.9) Malabsorption due to intolerance, not elsewhere classified Family History Family History Father Hypertension Parkinson's disease Mother Hypertension Diabetes Heart murmur Depression Sister Diabetes Arthritis Son No problems noted. Son No problems noted. 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 Meds Allergies Allergy/AdvReac Type Severity Reaction Status Date / Time Penicillins [PCN] Allergy Intermediate HIVES/RASH Verified 04/28/23 09:05 Mold Allergy Unknown Rash Uncoded 04/28/23 09:05 Home Medications Medication Instructions Recorded Confirmed Last Taken Type albuterol sulfate 90 mcg/actuation 2 puff inhalation QID 11/22/19 04/28/23 Unknown History aerosol inhaler montelukast 10 mg tablet 10 mg PO BEDTIME 11/22/19 04/28/23 Unknown History multivitamin 1 cap PO DAILY 11/22/19 04/28/23 Unknown History alcohol swabs 1 pad topical BID 10/25/21 04/28/23 Unknown History atorvastatin 40 mg tablet 40 mg PO DAILY 10/25/21 04/28/23 Unknown History blood sugar diagnostic (Jennyyle #10 ea 10/25/21 04/28/23 Unknown History Lite Strips) canagliflozin 100 mg tablet 100 mg PO QAM 10/25/21 04/28/23 04/24/23 History (Invokana) estradiol 0.01% (0.1 mg/gram) 1 g vaginal 2XW 10/25/21 04/28/23 Unknown History vaginal cream fluticasone propionate 110 1 puff inhalation BID 10/25/21 04/28/23 Unknown History mcg/actuation HFA aerosol inhaler (Flovent HFA) glipizide 5 mg tablet, extended 5 mg PO DAILY 10/25/21 04/28/23 04/27/23 History release 24 hr hydrochlorothiazide 25 mg tablet 25 mg PO DAILY 10/25/21 04/28/23 Unknown History lancets 28 gauge (FreeStyle #100 ea 10/25/21 04/28/23 Unknown History Lancets) lorazepam 0.5 mg tablet 0.5 mg PO DAILY PRN anxiety 10/25/21 04/28/23 Unknown History meclizine 25 mg tablet 25 mg PO TID PRN dizziness 10/25/21 04/28/23 Unknown History metformin 500 mg tablet,extended 1,000 mg PO BID 10/25/21 04/28/23 04/27/23 History release 24 hr polyvinyl alcohol 1.4 % eye drops 1 drp ophthalmic (eye) TID-QID 10/25/21 04/28/23 Unknown History (Artificial Tears (polyvinyl alcohol)) sumatriptan succinate 50 mg tablet 50 mg PO ONCE PRN Migraine Headache 10/25/21 04/28/23 Unknown History valacyclovir 500 mg tablet 500 mg PO BID 10/25/21 04/28/23 Unknown History diclofenac sodium 1 % topical gel 2 g topical QID 01/15/22 04/28/23 Unknown History melatonin 5 mg tablet 5 mg PO BEDTIME PRN insomnia 01/15/22 04/28/23 Unknown History venlafaxine 75 mg capsule,extended 75 mg PO DAILY PRN depressive 01/15/22 04/28/23 Unknown History release 24 hr disorder artifi.tears(hypromellose)(PF) 0.3 1 drp ophthalmic (eye) Q4-6H PRN 02/26/22 04/28/23 Unknown History % eye drops Dry Eye(S) gabapentin 600 mg tablet 600 mg PO BID 02/26/22 04/28/23 Unknown History thiamine HCl (vitamin B1) 100 mg 100 mg PO DAILY 02/26/22 04/28/23 Unknown History tablet trazodone 100 mg tablet 100 mg PO BEDTIME 02/26/22 04/28/23 Unknown History ibuprofen 600 mg tablet 600 mg PO TID 07/23/22 04/28/23 04/14/23 History terbinafine HCl 250 mg tablet 250 mg PO QAM 07/23/22 04/28/23 Unknown History venlafaxine 37.5 mg 37.5 mg PO DAILY depressive 07/23/22 04/28/23 Unknown History capsule,extended release 24 hr disorder Exam Pertinent Lab Results Pertinent Lab Results: Laboratory Tests 01/22/23 10:57 WBC 6.1 Hgb 13.8 Hct 42.5 Plt Count 259 Sodium 141 Potassium 4.2 Chloride 104 Carbon Dioxide 30 H BUN 13 Creatinine 0.63 Assessment and Plan Assessment Anesthesia Assessment: Chart Reviewed Documented by User: Stoney Brandt MD 04/28/23 09:57 HPI - Anesthesia Eval Anesthesia Pre-Procedure Meds If Yes to any meds - educate patient: Pt education - increased risk of aspiration and Pt education - possibility of cancelled proc at provider's discretion PMFSH Past Medical History Medical History Fibromyalgia Diabetes Ovary removal, prophylactic H/O neoplasm of uncertain behavior of ovary Ovarian tumor delivery delivered Left shoulder pain Heart murmur Neck pain Pelvic fracture Asthma Anxiety Arthritis Obesity (BMI 30.0-34.9) Malabsorption due to intolerance, not elsewhere classified Family History Family History Father Hypertension Parkinson's disease Mother Hypertension Diabetes Heart murmur Depression Sister Diabetes Arthritis Son No problems noted. Son No problems noted. Maternal Grandmother Heart disease Family history of problems with anesthesia: No Surgical History Surgical History (Updated 04/28/23 @ 09:05 by Mariza Lu) Previous section History of surgery of uterus S/P partial hysterectomy S/P laparoscopic sleeve gastrectomy History of Problems with Anesthesia: No Social History Social History Alcohol intake: never Patient Tobacco Use Status: Former Tobacco user Tobacco use type: Cigarette Cigarettes Per Day: 2 Smoked in Last 30 Days: No Use of substances other than those prescribed or required for medical reasons: No Are you DNR?: No Advance Directives: No Advance Directives Information Provided: Yes Current occupational status: disabled 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 Meds Allergies Allergy/AdvReac Type Severity Reaction Status Date / Time Penicillins [PCN] Allergy Intermediate HIVES/RASH Verified 04/28/23 09:05 Mold Allergy Unknown Rash Uncoded 04/28/23 09:05 Home Medications Medication Instructions Recorded Confirmed Last Taken Type albuterol sulfate 90 mcg/actuation 2 puff inhalation QID 11/22/19 04/28/23 Unknown History aerosol inhaler montelukast 10 mg tablet 10 mg PO BEDTIME 11/22/19 04/28/23 Unknown History multivitamin 1 cap PO DAILY 11/22/19 04/28/23 Unknown History alcohol swabs 1 pad topical BID 10/25/21 04/28/23 Unknown History atorvastatin 40 mg tablet 40 mg PO DAILY 10/25/21 04/28/23 Unknown History blood sugar diagnostic (FreeStyle #10 ea 10/25/21 04/28/23 Unknown History Lite Strips) canagliflozin 100 mg tablet 100 mg PO QAM 10/25/21 04/28/23 04/24/23 History (Invokana) estradiol 0.01% (0.1 mg/gram) 1 g vaginal 2XW 10/25/21 04/28/23 Unknown History vaginal cream fluticasone propionate 110 1 puff inhalation BID 10/25/21 04/28/23 Unknown History mcg/actuation HFA aerosol inhaler (Flovent HFA) glipizide 5 mg tablet, extended 5 mg PO DAILY 10/25/21 04/28/23 04/27/23 History release 24 hr hydrochlorothiazide 25 mg tablet 25 mg PO DAILY 10/25/21 04/28/23 Unknown History lancets 28 gauge (FreeStyle #100 ea 10/25/21 04/28/23 Unknown History Lancets) lorazepam 0.5 mg tablet 0.5 mg PO DAILY PRN anxiety 10/25/21 04/28/23 Unknown History meclizine 25 mg tablet 25 mg PO TID PRN dizziness 10/25/21 04/28/23 Unknown History metformin 500 mg tablet,extended 1,000 mg PO BID 10/25/21 04/28/23 04/27/23 History release 24 hr polyvinyl alcohol 1.4 % eye drops 1 drp ophthalmic (eye) TID-QID 10/25/21 04/28/23 Unknown History (Artificial Tears (polyvinyl alcohol)) sumatriptan succinate 50 mg tablet 50 mg PO ONCE PRN Migraine Headache 10/25/21 04/28/23 Unknown History valacyclovir 500 mg tablet 500 mg PO BID 10/25/21 04/28/23 Unknown History diclofenac sodium 1 % topical gel 2 g topical QID 01/15/22 04/28/23 Unknown History melatonin 5 mg tablet 5 mg PO BEDTIME PRN insomnia 01/15/22 04/28/23 Unknown History venlafaxine 75 mg capsule,extended 75 mg PO DAILY PRN depressive 01/15/22 04/28/23 Unknown History release 24 hr disorder artifi.tears(hypromellose)(PF) 0.3 1 drp ophthalmic (eye) Q4-6H PRN 02/26/22 04/28/23 Unknown History % eye drops Dry Eye(S) gabapentin 600 mg tablet 600 mg PO BID 02/26/22 04/28/23 Unknown History thiamine HCl (vitamin B1) 100 mg 100 mg PO DAILY 02/26/22 04/28/23 Unknown History tablet trazodone 100 mg tablet 100 mg PO BEDTIME 02/26/22 04/28/23 Unknown History ibuprofen 600 mg tablet 600 mg PO TID 07/23/22 04/28/23 04/14/23 History terbinafine HCl 250 mg tablet 250 mg PO QAM 07/23/22 04/28/23 Unknown History venlafaxine 37.5 mg 37.5 mg PO DAILY depressive 07/23/22 04/28/23 Unknown History capsule,extended release 24 hr disorder Exam Airway Mallampati Class: III TM Dist: >3cm Neck ROM: Full Loose/Missing/Broken Teeth: No Heart: [id number] Lungs: cta b/l Assessment and Plan Assessment Anesthesia Assessment: Anesthesia Plan Discussed and Smoking Cess. Discussed Final Anesthetic Review Family History of Problems with Anesthesia: No History of Problems with Anesthesia: No NPO: Yes ASA Class: III Final Preanesthetic Review: No Changes in Pt Med Stat, Meds/Allgs Chart Reviewed, Consent Obtained/Reviewed and Anes Risks/Benef Reviewed Patient Risk: Intermediate Procedure Risk: Intermediate Assessment/Block/Sedation in SS: Assess/Block/Sedation-SS Anesthetic Plan Anesthetic Plan: MAC: Disposition: Standard PACU
[2023-04-28 09:16] VITALS: BP 122/70; PULSE 94; RESP 16; TEMP 36.3; O2SAT 100; BMI 37.6
[2023-04-28 09:18] LABS: Glucose, Whole Blood 206 mg/dL (60-115)
[2023-04-28] MEDS: Lactated Ringers 1,000 ML 80 ML IVCONT (10:13)
--- NOTE | 2023-04-28 10:26 | MHC.SHP ---
Pre-Procedural Eval Section A - 24 Hr Update-Section A only Date of Service: 04/28/23 The patient is an INPATIENT: No The patient has been examined within 24 hours of the surgical procedure. The History & Physical has been completed within 30 days and I have reviewed it.: Yes Section B - Complete if H&P > 30 days Chief Complaint: Morbid (severe) obesity due to excess calories Details of Present Illness: GERD Relevant Family History (Specify if Yes): No Relevant Social History: None Present Medications: None Medical History: No relevant PMH History of Previous Operations: Relevant previous surgery/procedure and date(s) (Laparoscopic sleeve gastrectomy) Allergies: Allergies Allergy/AdvReac Type Severity Reaction Status Date / Time Penicillins [PCN] Allergy Intermediate HIVES/RASH Verified 04/28/23 09:05 Mold Allergy Unknown Rash Uncoded 04/28/23 09:05 Review of Systems Sugical H&P ROS: Yes, Specify: Gastrointestinal (GERD) Exam Surgical H&P Exam: Normal: HEENT, Normal: Heart, Normal: Lungs, Normal: Extremities, Normal: Abdomen, Normal: Skin and Normal: Neurological Plan Diagnosis/Plan: Unchanged (EGD to assess etiology of GERD. Risks of bleeding and perforation were discussed with the patient and he is in agreement with the plan.) I have reviewed the history and physical and performed a pertinent physical examination on my patient. No changes have occurred unless specified. Time Spent With Patient Time: Total time managing care of this patient today ____ minutes.
--- NOTE | 2023-04-28 10:31 | P.BOP_ITS ---
Brief Operative Note Date of Service: 04/28/23 Pre-op diagnosis: GERD, s/p sleeve gastrectomy Post-op diagnosis: same Procedure: PROCEDURE DATE: 04/28/2023 PREOPERATIVE DIAGNOSIS: GERD, s/p sleeve gastrectomy POSTOPERATIVE DIAGNOSIS: ?Same as above. 1) redundancy proximal sleeve and larger caliber sleeve PROCEDURE: [id number] with biopsies Surgeon: ?Ashish Mackay M.D.. Ph.D. Cable Television Installer: None ? Anesthesia: IV sedation Estimated blood loss: ?Minimal FINDINGS AND PROCEDURE: ? OPERATIVE INDICATIONS: ?The patient is a 52 year old female known to me who underwent a laparoscopic sleeve gastrectomy. The patient had inadequate weight loss so far and has been complaining of GERD. Based on this information I recommended an upper endoscopy to evaluate the patient's symptoms. Risks and complications of the surgery were discussed with the patient in advance particularly the possibility of perforation or bleeding that may require surgical intervention. The patient understood the risks and was in agreement with the plan. ? PROCEDURE: After informed consent was obtained by the patient, the patient was ?transferred to the Operating Room and was placed in the supine position.? After successful induction of IV sedation, a mouth block was inserted and the patient was placed in the left lateral decubitus position. An upper endoscopy was performed next, the oropharynx and esophagus appeared within the normal limits. There was no hiatal hernia. The z-line was smooth. Two biopsies were obtained from the distal esohagus 2-3 cm proximal to the GE junction and two additional biopsies from the GE junction. The sleeve was entered. There was proximal redundancy and the sleeve had overall larger caliber. There was no significant size antrum. There was no gastritis at distal antrum. There was no stricture or ulcer. Biopsies were obtained from the proximal sleeve as well as the distal antrum. No significant bleeding was noted from any of the biopsy sites. The scope was then advanced into the duodenum which appeared to be normal as well. At that point the duodenum ?and the sleeve were decompressed and the scope was withdrawn from the patient's mouth. The patient extubated and was transferred in stable condition to the Recovery Room for further care. I was present and performed all steps of the procedure. There were no residents to assist with this case. Ashish Mackay M.D., Ph.D. Surgeon: Dany Mackay MD Anesthesia: MAC Was an Cable Television Installer used for this Procedure?: No Estimated blood loss (mL): 0 IV fluids (mL): 400 Urine output (mL): 0 (No Bailey to record output) Pathology: other (1) antrum x1, 2) proximal sleeve/gastric fundus x1, 3) EGJ x2, 4) distal esophagus x2) Condition: stable Disposition: PACU
[2023-04-28 10:50] VITALS: BP 120/75; PULSE 70; RESP 16; TEMP 36.6; O2SAT 96
[2023-04-28] MEDS: Acetaminophen 325 MG TABLET 650 MG PO (10:58)
[2023-04-28 11:05] VITALS: BP 122/87; PULSE 81; RESP 14; TEMP 36.1; O2SAT 98
--- NOTE | 2023-04-28 12:15 | PC.NURSE ---
Aj from vacuum frame operator services present for all discharge instructions.
== END 2023-04-28 11:30 | disposition home or self-care (01) ==
PROVIDERS: PCP Internal Medicine; Visit Provider Surgery
PROC: 0DJ08ZZ Inspection of Upper Intestinal Tract, Via Natural or Artificial Opening Endoscopic (ICD-10-PCS; CPT 43235; principal; 2023-04-28 10:10)
DX: K95.89 Other complications of other bariatric procedure (principal); Z98.84 Bariatric surgery status; Z90.3 Acquired absence of stomach [part of]; K21.9 Gastro-esophageal reflux disease without esophagitis; E66.01 Morbid (severe) obesity due to excess calories; Z68.36 Body mass index [BMI] 36.0-36.9, adult; K44.9 Diaphragmatic hernia without obstruction or gangrene; E11.9 Type 2 diabetes mellitus without complications; J45.909 Unspecified asthma, uncomplicated; M79.7 Fibromyalgia; M25.559 Pain in unspecified hip; M54.50 Low back pain, unspecified; Z79.899 Other long term (current) drug therapy; Z79.51 Long term (current) use of inhaled steroids; Z79.84 Long term (current) use of oral hypoglycemic drugs; Z79.1 Long term (current) use of non-steroidal anti-inflammatories (NSAID); Z88.0 Allergy status to penicillin; Z98.890 Other specified postprocedural states; Z87.891 Personal history of nicotine dependence
CPT/HCPCS: 43239; 82947; 88305; 88313; 88342; J2250; J2405; J2704; J3010

== ENCOUNTER → 2023-04-28 08:43 | Outpatient (BNV) | payer MEDICAID, SELFPAY | PROVIDERS: PCP Internal Medicine; Visit Provider Surgery | DX: K21.9 Gastro-esophageal reflux disease without esophagitis (principal); K95.89 Other complications of other bariatric procedure; Z90.3 Acquired absence of stomach [part of]; Z98.84 Bariatric surgery status | CPT/HCPCS: 43239 ==

== ENCOUNTER 2023-05-13 10:45 | Outpatient (AMB) | payer MEDICAID, SELFPAY ==
--- NOTE | 2023-05-13 11:30 | A.OFFVIS_ITS ---
Intake VS Expanded 05/13/23 11:44 BP 129/64 Blood Pressure Location Rt brachial Blood Pressure Position Sitting Pulse 58 Pulse Source Pulse Oximeter Temp 96.1 F L Temperature Source Temporal Artery Scan Pulse Oximetry 97 Oxygen Delivery Method Room Air Height 5 ft 1 in Weight 189 lb 12.8 oz BMI 35.9 Body Fat % 43.1 Body Fat Mass 81.8 Fat Free Mass 107.8 Visceral Fat Rating 12.0 Body Water % 40.5 Body Water Mass 76.8 Muscle Mass/Score 102.2 Basal Metabolic Rate/Score 1,503 Intake Visit Reasons: (OV) PO LSG 07/15/18 Human Service Specialist Required: Yes Allergies Penicillins [PCN] Allergy (Intermediate, Verified 05/13/23 11:35) HIVES/RASH Mold Allergy (Unknown, Uncoded 04/28/23 09:05) Rash Medication List - Last Reconciled 05/13/23 by MARRY Moore albuterol sulfate 90 mcg/actuation 2 puffs inhalation QID alcohol swabs 1 pad topical BID artifi.tears(hypromellose)(PF) 0.3% 1 drp ophthalmic (eye) Q4-6H PRN atorvastatin 40 mg PO DAILY blood sugar diagnostic (FreeStyle Lite Strips) As directed canagliflozin (Invokana) 100 mg PO QAM capsaicin 0.025% (Capsicum) 1 patch topical BID PRN cholecalciferol (vitamin D3) 50 mcg PO DAILY diclofenac sodium 1% 2 grams topical QID dicyclomine 20 mg PO QID estradiol 0.01%(0.1mg/gram) 1 g vaginal 2XW famotidine 20 mg PO BID fluticasone propionate 110 mcg/actuation (Flovent HFA) 1 puff inhalation BID gabapentin 600 mg PO BID glipizide ER 5 mg PO DAILY hydrochlorothiazide 25 mg PO DAILY ibuprofen 600 mg PO TID lancets (FreeStyle Lancets) As directed lidocaine 5% (Lidoderm) 1 patch topical DAILY lidocaine 5% 1 patch topical DAILY linaclotide (Linzess) 72 mcg PO QAM lorazepam 0.5 mg PO DAILY PRN meclizine 25 mg PO TID PRN melatonin 5 mg PO BEDTIME PRN metformin ER 1,000 mg PO BID methocarbamol 750 mg PO BID PRN 30 days montelukast 10 mg PO BEDTIME multivitamin 1 cap PO DAILY oxycodone 5 mg PO Q6H PRN pantoprazole 40 mg PO DAILY polyvinyl alcohol 1.4% (Artificial Tears (polyvinyl alcohol)) 1 drp ophthalmic (eye) TID-QID sumatriptan succinate 50 mg PO ONCE PRN terbinafine HCl 250 mg PO QAM thiamine HCl (vitamin B1) 100 mg PO DAILY trazodone 100 mg PO BEDTIME valacyclovir 500 mg PO BID venlafaxine ER 75 mg PO DAILY PRN venlafaxine ER 37.5 mg PO DAILY vitamin A palmitate 10,000 units PO DAILY HPI HPI Comments History of Present Illness Details This?is a?52?yo female who is s/p LSG 07/15/2018. Weight loss of 1.2lbs since last OV 03/26/2023.? Pt underwent endoscopy 04/28/2023 which showed redundancy of proximal sleeve and large caliber sleeve. Pt reports she continues to have abdominal pain, increased diarrhea, has vomited a few times. Was given a new meal plan by Dr. Hill. Reports frustration that she continues to experience these symptoms without a definitive answer as to why they are happening. Pt has seen GI already, dx of IBS. Has not been following timelines or taking 2 hours to complete bars/shakes. She also shares at the end of the visit that she changed almond milk to unsweetened coconut milk and did not let us know this previously. Present meal plan includes: 10am-12pm Orgain shake- half scoop in 8o z UAM 12-2pm Celebrate bar 3-5pm another shake as above 6pm 6 forks protein, 6 forks veg 7-9pm Orgain shake as above 10pm-12am Celebrate bar Reports difficulty with exercise, recently had to wear a Holter monitor and per pt was unable to exercise. [facility] Medical History Fibromyalgia Diabetes Ovary removal, prophylactic H/O neoplasm of uncertain behavior of ovary Ovarian tumor delivery delivered Left shoulder pain Heart murmur Neck pain Pelvic fracture Asthma Anxiety Arthritis Obesity (BMI 30.0-34.9) Malabsorption due to intolerance, not elsewhere classified Surgical History Previous section History of surgery of uterus S/P partial hysterectomy S/P laparoscopic sleeve gastrectomy Family History Father Hypertension Parkinson's disease Mother Hypertension Diabetes Heart murmur Depression Sister Diabetes Arthritis Son No problems noted. Son No problems noted. 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 Discussed that pt needs to take 2 hours to drink shakes and eat bars which she was not doing. Needs to take small bites and sip small volumes like when she was recently postop. Also discussed the importance of not making any changes to meal plan without consulting with us first. Per Dr. Hill, once she has achieved additional 5-10% weight loss we can reassess reflux. RTC 6 weeks. Patient is obese and is not considered stable at this time. I spent a total of 30 minutes reviewing/updating records, examining the patient and counseling the patient on weight management as detailed above. Coding Level of Care Code Est Pt Level 4 (98714) Diagnoses S/P laparoscopic sleeve gastrectomy Z98.84 Obesity (BMI 30.0-34.9) E66.9
[2023-05-13 11:44] VITALS: BP 129/64; PULSE 58; TEMP 35.6; O2SAT 97; BMI 35.9
== END 2023-05-13 12:23 | disposition home or self-care (01) ==
PROVIDERS: PCP Internal Medicine; Visit Provider Physician Assistant Surgical
DX: E66.9 Obesity, unspecified (principal); Z68.35 Body mass index [BMI] 35.0-35.9, adult; Z90.3 Acquired absence of stomach [part of]; Z98.84 Bariatric surgery status
CPT/HCPCS: 99214

== ENCOUNTER → 2023-05-13 10:45 | Outpatient (BNVA) | payer MEDICAID, SELFPAY | PROVIDERS: PCP Internal Medicine; Visit Provider Physician Assistant Surgical | DX: E66.9 Obesity, unspecified (principal); Z71.3 Dietary counseling and surveillance; Z98.84 Bariatric surgery status | CPT/HCPCS: 99212 ==

== ENCOUNTER 2023-05-29 11:20 | Outpatient (REF) | payer MEDICAID, SELFPAY ==
[2023-05-29 13:24] LABS: MANUAL DIFF FLAG NO
[2023-05-29 13:48] LABS: Basophils Absolute Auto 0.1 X10*3/uL (0.0-0.2); Basophils Percent Auto 0.9 % (0-2); Eosinophils Absolute Auto 0.2 X10*3/uL (0.0-0.4); Eosinophils Percent Auto 2.5 % (0-4); Hematocrit 44.5 % (37.0-47.0); Hemoglobin 14.6 g/dl (12.0-16.0); Imm Gran Abs Auto 0.01 X10*3/uL (0.00-0.03); Imm Gran Pct Auto 0.2 % (0.0-0.4); Lymphocytes Absolute Auto 2.2 X10*3/uL (1.2-4.9); Lymphocytes Percent Auto 33.9 % (20-40); Mean Corpuscular HGB Conc 32.8 g/dl (31.0-35.0); Mean Corpuscular Hemoglobin 29.6 pg (27.0-33.0); Mean Corpuscular Volume 90.1 fL (80.0-98.0); Monocytes Absolute Auto 0.4 X10*3/uL (0.1-1.2); Monocytes Percent Auto 5.8 % (2-11); Neutrophils Absolute Auto 3.6 x10*3/uL (2.0-8.3); Neutrophils Percent Auto 56.7 % (45-73); Platelet Count 261 X10*3/uL (160-400); Red Blood Count 4.94 X10*6/uL (4.20-5.50); Red Cell Distribution Width 12.9 % (11.0-16.0); White Blood Count 6.4 X10*3/uL (4.8-10.8)
[2023-05-29 14:21] LABS: Anion Gap 12 (12-20); Blood Urea Nitrogen 15 mg/dL (9-16); Calcium 9.6 mg/dL (8.4-10.2); Carbon Dioxide 28 mmol/L (22-29); Chloride 109 mmol/L (96-108); Estimated Glomerular Filt Rate > 60; Glucose Random 127 mg/dL (60-115); Sodium 145 mmol/L (135-145)
== END 2023-05-29 11:21 | disposition home or self-care (01) ==
LOC: HO.HHCL 11:20
PROVIDERS: Visit Provider Internal Medicine
DX: Z01.818 Encounter for other preprocedural examination (principal)
CPT/HCPCS: 36415; 80048; 85025

== ENCOUNTER → 2023-06-22 14:10 | Outpatient (BNVA) | payer MEDICAID, SELFPAY | PROVIDERS: PCP Internal Medicine; Visit Provider Physician Assistant Surgical ==

== ENCOUNTER 2023-06-23 13:15 | Outpatient (AMB) | payer MEDICAID, SELFPAY ==
--- NOTE | 2023-06-23 12:56 | A.OFFVIS_ITS ---
VS Expanded 06/23/23 12:57 Height 5 ft 1 in Weight 182 lb BMI 34.4 Intake Visit Reasons: (OV) PO LSG 07/15/18 Pharmacy Informatics Manager Required: Yes Allergies Penicillins [PCN] Allergy (Intermediate, Verified 05/13/23 11:35) HIVES/RASH Mold Allergy (Unknown, Uncoded 04/28/23 09:05) Rash Medication List - Last Reconciled 06/23/23 by MARRY Moore albuterol sulfate 90 mcg/actuation 2 puffs inhalation QID alcohol swabs 1 pad topical BID artifi.tears(hypromellose)(PF) 0.3% 1 drp ophthalmic (eye) Q4-6H PRN atorvastatin 40 mg PO DAILY blood sugar diagnostic (FreeStyle Lite Strips) As directed canagliflozin (Invokana) 100 mg PO QAM capsaicin 0.025% (Capsicum) 1 patch topical BID PRN cholecalciferol (vitamin D3) 50 mcg PO DAILY diclofenac sodium 1% 2 grams topical QID dicyclomine 20 mg PO QID estradiol 0.01%(0.1mg/gram) 1 g vaginal 2XW famotidine 20 mg PO BID fluticasone propionate 110 mcg/actuation (Flovent HFA) 1 puff inhalation BID gabapentin 600 mg PO BID glipizide ER 5 mg PO DAILY hydrochlorothiazide 25 mg PO DAILY ibuprofen 600 mg PO TID lancets (FreeStyle Lancets) As directed lidocaine 5% (Lidoderm) 1 patch topical DAILY lidocaine 5% 1 patch topical DAILY linaclotide (Linzess) 72 mcg PO QAM lorazepam 0.5 mg PO DAILY PRN meclizine 25 mg PO TID PRN melatonin 5 mg PO BEDTIME PRN metformin ER 1,000 mg PO BID methocarbamol 750 mg PO BID PRN 30 days montelukast 10 mg PO BEDTIME multivitamin 1 cap PO DAILY oxycodone 5 mg PO Q6H PRN pantoprazole 40 mg PO DAILY polyvinyl alcohol 1.4% (Artificial Tears (polyvinyl alcohol)) 1 drp ophthalmic (eye) TID-QID sumatriptan succinate 50 mg PO ONCE PRN terbinafine HCl 250 mg PO QAM thiamine HCl (vitamin B1) 100 mg PO DAILY trazodone 100 mg PO BEDTIME valacyclovir 500 mg PO BID venlafaxine ER 75 mg PO DAILY PRN venlafaxine ER 37.5 mg PO DAILY vitamin A palmitate 10,000 units PO DAILY HPI Comments Details: This?is a?52?yo female who is s/p LSG 07/15/2018. Weight loss of 7.8lbs since last OV. Pt underwent endoscopy 04/28/2023 which showed redundancy of proximal sleeve and large caliber sleeve. Pt reports she continues to have abdominal pain, diarrhea, heartburn. Following meal plan per Dr. Hill. Per pt, Dr. Hill is planning on surgical intervention due to pt's ongoing pain/reflux despite following meal plan. Surgery would be to fix the hernia . Present meal plan includes: 10am-12pm Orgain shake- half scoop in 8oz coconut milk 12-2pm Celebrate bar 3-5pm another shake as above 6pm 6 forks protein, 6 forks veg 7-9pm Orgain shake as above 10pm-12am Celebrate bar Exercise: pt was unable to exercise as much at home due to a fall down stairs, had been using bike [facility] Medical History (Updated 06/23/23 @ 13:04 by MARRY Moore) Fibromyalgia Diabetes Ovary removal, prophylactic H/O neoplasm of uncertain behavior of ovary Ovarian tumor delivery delivered Left shoulder pain Heart murmur Neck pain Pelvic fracture Asthma Anxiety Arthritis Obesity (BMI 30.0-34.9) Malabsorption due to intolerance, not elsewhere classified Surgical History Previous section History of surgery of uterus S/P partial hysterectomy S/P laparoscopic sleeve gastrectomy Family History Father Hypertension Parkinson's disease Mother Hypertension Diabetes Heart murmur Depression Sister Diabetes Arthritis Son No problems noted. Son No problems noted. 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 Telehealth Telehealth Telehealth Platform: Telephone Location of provider rendering services: practice address Location of patient: address on file Patient Identification confirmed using: Name, : Yes Telehealth method: voice only Patient verbally consented to treatment: Yes Patient verbally consented to billing insurance company: Yes Patient informed of any privacy concerns related to visit: Yes Minutes spent on Phone/Video with Pt.: 15 Assessment & Plan Assessment & Plan (1) S/P laparoscopic sleeve gastrectomy: Code(s): Z98.84 - Bariatric surgery status Category: Surgical (2) Obesity (BMI 30.0-34.9): Code(s): E66.9 - Obesity, unspecified Category: Medical (3) GERD (gastroesophageal reflux disease): Code(s): K21.9 - Gastro-esophageal reflux disease without esophagitis Category: Medical Plan Pt continues to have abdominal pain and reflux despite losing weight and following above meal plan. Will discuss with Dr. Hill timing of any additional operation, whether further weight loss will be required first or anything else he would like completed before any surgery. Will let pt know next week when she is back from vacation. Patient is obese and is not considered stable at this time. I spent a total of 30 minutes reviewing/updating records, examining the patient and counseling the patient on weight management as detailed above.
[2023-06-23 12:57] VITALS: BMI 34.4
== END 2023-06-23 13:18 | disposition home or self-care (01) ==
LOC: HO.HBS 13:15
PROVIDERS: PCP Internal Medicine; Visit Provider Physician Assistant Surgical
DX: E66.9 Obesity, unspecified (principal); Z68.34 Body mass index [BMI] 34.0-34.9, adult; Z98.84 Bariatric surgery status; K21.9 Gastro-esophageal reflux disease without esophagitis
CPT/HCPCS: 99214

== ENCOUNTER → 2023-06-23 13:15 | Outpatient (BNVA) | payer MEDICAID, SELFPAY | PROVIDERS: PCP Internal Medicine; Visit Provider Physician Assistant Surgical | DX: Z98.84 Bariatric surgery status (principal); E66.9 Obesity, unspecified; K21.9 Gastro-esophageal reflux disease without esophagitis ==

== ENCOUNTER 2023-07-15 11:33 | Outpatient (AMB) | payer MEDICAID, SELFPAY ==
[2023-07-15 12:02] VITALS: BP 120/65; PULSE 65; BMI 35.3
--- NOTE | 2023-07-15 12:02 | A.OFFVIS_ITS ---
Vital Signs 07/15/23 12:02 Height 5 ft 1 in Weight 186 lb 15.232 oz BMI 35.3 BP 120/65 Blood Pressure Location Rt brachial Position Sitting Pulse 65 Intake Visit Reasons: month follow up PT N/S last appt Allergies Penicillins [PCN] Allergy (Intermediate, Verified 07/15/23 12:12) HIVES/RASH Mold Allergy (Unknown, Uncoded 04/28/23 09:05) Rash HPI HPI month follow up PT N/S last appt: Details: Assessment & Plan (1) Irritable bowel syndrome with both constipation and diarrhea: Code(s): K58.2 - Mixed irritable bowel syndrome Plan: Jordanian # Ap She continues to do well on her dicyclomine, famotidine twice a day and Linzess 72 mcg. Her colonoscopy was scheduled in August but then she had to cancel it because it was booked August 20 and she just could not maintain the fast with all of the 19 of August parties. She is willing to have her rescheduled, but then tells me that her primary care provider ordered a Cologuard test for her so this may help us decide whether we need to do this sooner or whether we can put this off for 3 years. The report was discovered later in the day and was negative so there is no clarke to schedule this colonoscopy yet. I will see her back in 6 months. (2) Gallstones: Comment: HIDA scan does not seem to show this is a contributing factor Code(s): K80.20 - Calculus of gallbladder without cholecystitis without obstruction (3) Diarrhea: Code(s): R19.7 - Diarrhea, unspecified (4) Nausea and vomiting: Code(s): R11.2 - Nausea with vomiting, unspecified (5) Morbid obesity with BMI of 40.0-44.9, adult: Code(s): E66.01 - Morbid (severe) obesity due to excess calories; Z68.41 - Body mass index [BMI] 40.0-44.9, adult (6) S/P laparoscopic sleeve gastrectomy: Code(s): Z98.84 - Bariatric surgery status Medications: Refilled peg 3350-electrolytes 236-22.74-6.74 -5.86 gram (Golytely) until fecal effluent is clear; do not exceed a total volume of 2,000 mL 240 mL PO Q10M 1 day 4,000 mL 0RF Z12.11 - Encounter for screening for malignant neoplasm of colon COLONOSCOPY Not yet scheduled her obtained but Cologuard was negative BIOPSY. TODAYS VISIT. Jordanian #Miriam Live She continues on her dicyclomine, famotidine twice a day and Linzess 72 mcg. She spoke with her bariatric doctor and she had a stomach biopsy and he found a a cyst and something in my colon was found. It appears she means the ? of enteritis in the duodenum on the UGI that was not borne out by subsequent EGD by Dr Moraes and biopsies in April. I explain this to her. She says she still has the pain. From prior note: (Overall, the pain that she experiences in the bilateral upper quads/flanks is improved, but she will still have episodes of severe spasm like pain. ) At our last appt she was unsure if the bentyl is helpful with this pain. She is still having CIC alt with diarrhea of equal occurrence. I had directed her to bariatrics to discuss if over eating etc was c/t his, but now she says she is following their prescribed diet to the T and having no relief. She also feels bloated all of the time. She says I feel like something is wrong. It makes her very frustrated. Prior to her sleeve she has only CIC and no diarrhea - which makes me question some sort of dumping syndrome despite her adherence to her diet. Given the wide variety of tests we have run, I don't think there is any severe pathology but I think that fiber therapy and a digestive enzyme trial. I recommend benefiber or Citrucel once a day (given her small stomach pouch) and Creon bid. She can continue her LInzess 72 as needed and the bentyl prn as well. ROV 6 weeks. [facility] Medical History (Updated 07/15/23 @ 12:43 by CÉSAR Bethea) Morbid obesity with BMI of 40.0-44.9, adult Fibromyalgia Diabetes Ovary removal, prophylactic H/O neoplasm of uncertain behavior of ovary Ovarian tumor delivery delivered Left shoulder pain Heart murmur Neck pain Pelvic fracture Asthma Anxiety Arthritis Obesity (BMI 30.0-34.9) Malabsorption due to intolerance, not elsewhere classified Surgical History (Updated 07/15/23 @ 12:12 by MADHU Newby) History of esophagogastroduodenoscopy (EGD) Previous section History of surgery of uterus S/P partial hysterectomy S/P laparoscopic sleeve gastrectomy Family History Father Hypertension Parkinson's disease Mother Hypertension Diabetes Heart murmur Depression Sister Diabetes Arthritis Son No problems noted. Son No problems noted. 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 Review of Systems Const Denies fatigue, Denies fever(s), Denies night sweats, Denies poor appetite and Denies weight loss ENT Reports Normal hearing present, Denies dental pain, Denies dysphagia, Denies hearing loss, Denies mouth pain, Denies odynophagia, Denies throat swelling, Denies tongue swelling and Reports other (Dentition adequate) Card Reports no additional complaints Resp Reports no additional complaints GI Details: Reports abdominal pain, Denies melena, Reports bloating, Denies hematochezia, Reports constipation, Denies GI cramping, Denies dysphagia, Denies excessive flatus, Denies early satiety, Reports heartburn, Reports diarrhea, Denies nausea, Denies odynophagia, Denies vomiting and Denies hematemesis Skin/Breast Denies pruritus, Denies lesions, Denies rash and Denies jaundice Neuro Reports Normal hearing present and Denies Abnormal speech present Endo Denies fatigue Aller/Immun Denies throat swelling and Denies tongue swelling Physical Exam Vital Signs: Last Vital Signs Pulse 65 07/15/23 12:02 BP 120/65 07/15/23 12:02 BMI result Body Mass Index 35.3 Const General: cooperative, no acute distress, well developed and well groomed Nutritional Appearance: well nourished and obese Orientation/consciousness: oriented to person, oriented to place and oriented to time Limitations: language barrier HEENT Head: Yes normocephalic and Yes atraumatic Eyes General: appearance normal, both eyes and all related structures Pupils: Equal, round and reactive pupils present Neck Neck: Yes normal visual inspection and Yes no lymphadenopathy Thyroid: Thyroid normal Resp Effort & Inspection: normal respiratory effort and able to speak in complete sentences Auscultation: clear to auscultation bilaterally Cardio Rate: regular rate Rhythm: regular rhythm Heart sounds: Normal, physiologic split S2 sound present Peripheral pulses: radial pulses present and posterior tibial pulses present GI Inspection: No distended, Yes Abdominal panniculus present and Yes obesity Palpation (GI): Soft to palpation, Tenderness to palpation present (GI), no guarding, not rigid and No hepatosplenomegaly present Percussion: Yes normal to percussion Auscultation: normal bowel sounds Rectal Exam - Female: deferred Skin General skin exam: no rashes or lesions noted, turgor normal, skin not dry, no jaundice, No spider nevi and no striae Rashes: no rashes Nails: normal Neuro General: oriented to person, oriented to place and oriented to time Cranial nerves: Yes Equal, round and reactive pupils present and Yes Normal hearing present Speech: No Abnormal speech present Extrem General: Yes normal to inspection, No clubbing, No cyanosis and No edema Psych Appearance: grossly normal and well kempt Mental Status: mental status grossly normal Speech and movement: Normal speech and movement present Affect: normal affect Attitude: cooperative Thought process: Normal thought process present and not confabulating Thought content: Normal thought content present Insight: Limited insight present (Psych) Judgement: Limited judgement present (Psych) Assessment & Plan Assessment & Plan (1) GERD (gastroesophageal reflux disease): Code(s): K21.9 - Gastro-esophageal reflux disease without esophagitis Category: Medical (2) Irritable bowel syndrome with both constipation and diarrhea: Code(s): K58.2 - Mixed irritable bowel syndrome Category: Medical (3) Gallstones: Comment: HIDA scan does not seem to show this is a contributing factor Code(s): K80.20 - Calculus of gallbladder without cholecystitis without obstruction Category: Medical (4) S/P laparoscopic sleeve gastrectomy: Code(s): Z98.84 - Bariatric surgery status Category: Surgical (5) Obesity (BMI 30.0-34.9): Code(s): E66.9 - Obesity, unspecified Category: Medical Plan [place]ian #Miriam Mar She continues on her dicyclomine, famotidine twice a day and Linzess 72 mcg. She spoke with her bariatric doctor and she had a stomach biopsy and he found a a cyst and something in my colon was found. It appears she means the ? of enteritis in the duodenum on the UGI that was not borne out by subsequent EGD by Dr Moraes and biopsies in April. I explain this to her. She says she still has the pain. From prior note: (Overall, the pain that she experiences in the bilateral upper quads/flanks is improved, but she will still have episodes of severe spasm like pain. ) At our last appt she was unsure if the bentyl is helpful with this pain. She is still having CIC alt with diarrhea of equal occurrence. I had directed her to bariatrics to discuss if over eating etc was c/t his, but now she says she is following their prescribed diet to the T and having no relief. She also feels bloated all of the time. She says I feel like something is wrong. It makes her very frustrated. Prior to her sleeve she has only CIC and no diarrhea - which makes me question some sort of dumping syndrome despite her adherence to her diet. Given the wide variety of tests we have run, I don't think there is any severe pathology but I think that fiber therapy and a digestive enzyme trial. I recommend benefiber or Citrucel once a day (given her small stomach pouch) and Creon bid. She can continue her LInzess 72 as needed and the bentyl prn as well. ROV 6 weeks. Medications: New [id number]-yqrymds 24,000-76,000 -120,000 unit (Creon) 2 caps PO BID 120 caps 6RF 30 days K58.9 - Irritable bowel syndrome without diarrhea Coding Level of Care Code Est Pt Level 3 (82261) Diagnoses GERD (gastroesophageal reflux disease) K21.9 Irritable bowel syndrome with both constipation and diarrhea K58.2 Gallstones K80.20 S/P laparoscopic sleeve gastrectomy Z98.84 Obesity (BMI 30.0-34.9) E66.9
--- NOTE | 2023-07-15 12:02 | MHC.OFFVIS ---
Vital Signs 07/15/23 12:02 Height 5 ft 1 in Weight 186 lb 15.232 oz BMI 35.3 BP 120/65 Blood Pressure Location Rt brachial Position Sitting Pulse 65 Intake Visit Reasons: month follow up PT N/S last appt Intake Note: Patient presents to in office today in follow up of IBS. CC: Patient c/o abdominal pain. She states that she had an EGD done and was found to have a hernia and problems in her intestine. She also c/o diarrhea and constipation on and off. Allergies Penicillins [PCN] Allergy (Intermediate, Verified 07/15/23 12:03) HIVES/RASH Mold Allergy (Unknown, Uncoded 04/28/23 09:05) Rash PFSH Medical History Fibromyalgia Diabetes Ovary removal, prophylactic H/O neoplasm of uncertain behavior of ovary Ovarian tumor delivery delivered Left shoulder pain Heart murmur Neck pain Pelvic fracture Asthma Anxiety Arthritis Obesity (BMI 30.0-34.9) Malabsorption due to intolerance, not elsewhere classified Surgical History Previous section History of surgery of uterus S/P partial hysterectomy S/P laparoscopic sleeve gastrectomy Family History Father Hypertension Parkinson's disease Mother Hypertension Diabetes Heart murmur Depression Sister Diabetes Arthritis Son No problems noted. Son No problems noted. 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
== END 2023-07-15 12:47 | disposition home or self-care (01) ==
PROVIDERS: PCP Internal Medicine; Visit Provider Nurse Practitioner
DX: K21.9 Gastro-esophageal reflux disease without esophagitis (principal); K58.2 Mixed irritable bowel syndrome; K80.20 Calculus of gallbladder without cholecystitis without obstruction; Z98.84 Bariatric surgery status; E66.9 Obesity, unspecified
CPT/HCPCS: 99213

== ENCOUNTER → 2023-07-15 11:33 | Outpatient (BNVA) | payer MEDICAID, SELFPAY | PROVIDERS: PCP Internal Medicine; Visit Provider Nurse Practitioner | DX: K21.9 Gastro-esophageal reflux disease without esophagitis (principal); K58.2 Mixed irritable bowel syndrome; K80.20 Calculus of gallbladder without cholecystitis without obstruction; E66.9 Obesity, unspecified; Z98.84 Bariatric surgery status; Z68.35 Body mass index [BMI] 35.0-35.9, adult | CPT/HCPCS: 99212 ==

== ENCOUNTER 2023-09-02 11:53 | Outpatient (AMB) | payer MEDICAID, SELFPAY ==
--- NOTE | 2023-09-02 12:16 | MHC.OFFVIS ---
Vital Signs 09/02/23 12:23 Height 5 ft 1 in Weight 182 lb 15.739 oz BMI 34.6 BP 139/67 Blood Pressure Location Rt brachial Position Sitting Pulse 53 Pulse Source Monitor Intake Visit Reasons: 6 week follow up Allergies Penicillins [PCN] Allergy (Intermediate, Verified 07/15/23 12:12) HIVES/RASH Mold Allergy (Unknown, Uncoded 04/28/23 09:05) Rash HPI HPI 6 week follow up: Details: Assessment & Plan (1) GERD (gastroesophageal reflux disease): Code(s): K21.9 - Gastro-esophageal reflux disease without esophagitis Category: Medical (2) Irritable bowel syndrome with both constipation and diarrhea: Code(s): K58.2 - Mixed irritable bowel syndrome Category: Medical (3) Gallstones: Comment: HIDA scan does not seem to show this is a contributing factor Code(s): K80.20 - Calculus of gallbladder without cholecystitis without obstruction Category: Medical (4) S/P laparoscopic sleeve gastrectomy: Code(s): Z98.84 - Bariatric surgery status Category: Surgical (5) Obesity (BMI 30.0-34.9): Code(s): E66.9 - Obesity, unspecified Category: Medical Plan Welsh #Miriam Live She continues on her dicyclomine, famotidine twice a day and Linzess 72 mcg. She spoke with her bariatric doctor and she had a stomach biopsy and he found a a cyst and something in my colon was found. It appears she means the ? of enteritis in the duodenum on the UGI that was not borne out by subsequent EGD by Dr Moraes and biopsies in April. I explain this to her. She says she still has the pain. From prior note: (Overall, the pain that she experiences in the bilateral upper quads/flanks is improved, but she will still have episodes of severe spasm like pain. ) At our last appt she was unsure if the bentyl is helpful with this pain. She is still having CIC alt with diarrhea of equal occurrence. I had directed her to bariatrics to discuss if over eating etc was c/t his, but now she says she is following their prescribed diet to the T and having no relief. She also feels bloated all of the time. She says I feel like something is wrong. It makes her very frustrated. Prior to her sleeve she has only CIC and no diarrhea - which makes me question some sort of dumping syndrome despite her adherence to her diet. Given the wide variety of tests we have run, I don't think there is any severe pathology but I think that fiber therapy and a digestive enzyme trial. I recommend benefiber or Citrucel once a day (given her small stomach pouch) and Creon bid. She can continue her LInzess 72 as needed and the bentyl prn as well. ROV 6 weeks. Medications: New danzmc-bkwoikzz-rgnwghs 24,000-76,000 -120,000 unit (Creon) 2 caps PO BID 120 caps 6RF 30 days K58.9 - Irritable bowel syndrome without diarrhea \ TODAYS VISIT Welsh #[id number] Sangeetha She continues with pain and stomach cramping. She has lost contacted with her bariatric provider for following her diet (Dr. Cuevas). She received the creon, but is only taking1 tab bid because she is medication fearful of s/e. I explain that this is a natural analog of something our body makes (but probably not enough) so this is one of the rare cases where more is better. she has noticed some improvement in her general sx with the creon, so I encourage her to go to the 2 caps bid dose. She feels it helped with the gas and bloating, but not as much with the pain. She also questions if her hernia is c/t this. I am unsure. She also is seeing mucus with blood in one of her stools. It was a very small amt of blood. It has not re occurred. We will watch and wait on this. ROV 6 weeks. [facility] Medical History (Updated 07/15/23 @ 12:43 by CÉSAR Bethea) Morbid obesity with BMI of 40.0-44.9, adult Fibromyalgia Diabetes Ovary removal, prophylactic H/O neoplasm of uncertain behavior of ovary Ovarian tumor delivery delivered Left shoulder pain Heart murmur Neck pain Pelvic fracture Asthma Anxiety Arthritis Obesity (BMI 30.0-34.9) Malabsorption due to intolerance, not elsewhere classified Surgical History (Updated 07/15/23 @ 12:12 by MADHU Newby) History of esophagogastroduodenoscopy (EGD) Previous section History of surgery of uterus S/P partial hysterectomy S/P laparoscopic sleeve gastrectomy Family History Father Hypertension Parkinson's disease Mother Hypertension Diabetes Heart murmur Depression Sister Diabetes Arthritis Son No problems noted. Son No problems noted. 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 Review of Systems Const Denies fatigue, Denies fever(s), Denies night sweats, Denies poor appetite and Denies weight loss ENT Reports Normal hearing present, Denies dental pain, Denies dysphagia, Denies hearing loss, Denies mouth pain, Denies odynophagia, Denies throat swelling, Denies tongue swelling and Reports other (Dentition adequate) Card Reports no additional complaints Resp Reports no additional complaints GI Details: Denies abdominal pain, Denies melena, Reports bloating, Denies hematochezia, Denies constipation, Denies GI cramping, Denies dysphagia, Reports excessive flatus, Denies early satiety, Denies heartburn, Denies diarrhea, Denies nausea, Denies odynophagia, Denies vomiting and Denies hematemesis Skin/Breast Denies pruritus, Denies lesions, Denies rash and Denies jaundice Neuro Reports Normal hearing present and Denies Abnormal speech present Endo Denies fatigue Aller/Immun Denies throat swelling and Denies tongue swelling Physical Exam Vital Signs: Last Vital Signs Pulse 53 09/02/23 12:23 BP 139/67 09/02/23 12:23 BMI result Body Mass Index 34.6 Const General: cooperative, no acute distress, well developed and well groomed Nutritional Appearance: well nourished and obese Orientation/consciousness: oriented to person, oriented to place and oriented to time Limitations: language barrier HEENT Head: Yes normocephalic and Yes atraumatic Eyes General: appearance normal, both eyes and all related structures Pupils: Equal, round and reactive pupils present Neck Neck: Yes normal visual inspection and Yes no lymphadenopathy Thyroid: Thyroid normal Resp Effort & Inspection: normal respiratory effort and able to speak in complete sentences Auscultation: clear to auscultation bilaterally Cardio Rate: regular rate Rhythm: regular rhythm Heart sounds: Normal, physiologic split S2 sound present Peripheral pulses: radial pulses present and posterior tibial pulses present GI Inspection: No distended, No Abdominal panniculus present and Yes obesity Palpation (GI): Soft to palpation, nontender, no guarding, not rigid and No hepatosplenomegaly present Percussion: Yes normal to percussion Auscultation: normal bowel sounds Rectal Exam - Female: deferred Skin General skin exam: no rashes or lesions noted, turgor normal, skin not dry, no jaundice, No spider nevi and no striae Rashes: no rashes Nails: normal Neuro General: oriented to person, oriented to place and oriented to time Cranial nerves: Yes Equal, round and reactive pupils present and Yes Normal hearing present Speech: No Abnormal speech present Extrem General: Yes normal to inspection, No clubbing, No cyanosis and No edema Psych Appearance: grossly normal and well kempt Mental Status: mental status grossly normal Speech and movement: Normal speech and movement present Affect: normal affect Attitude: cooperative Thought process: Normal thought process present and not confabulating Thought content: Normal thought content present Insight: Limited insight present (Psych) Judgement: Limited judgement present (Psych) Assessment & Plan Assessment & Plan (1) GERD (gastroesophageal reflux disease): Code(s): K21.9 - Gastro-esophageal reflux disease without esophagitis Category: Medical (2) Irritable bowel syndrome with both constipation and diarrhea: Code(s): K58.2 - Mixed irritable bowel syndrome Category: Medical Plan Welsh #[id number] Sangeetha She continues with pain and stomach cramping. She has lost contacted with her bariatric provider for following her diet (Dr. Cuevas). She received the creon, but is only taking1 tab bid because she is medication fearful of s/e. I explain that this is a natural analog of something our body makes (but probably not enough) so this is one of the rare cases where more is better. she has noticed some improvement in her general sx with the creon, so I encourage her to go to the 2 caps bid dose. She feels it helped with the gas and bloating, but not as much with the pain. She also questions if her hernia is c/t this. I am unsure. She also is seeing mucus with blood in one of her stools. It was a very small amt of blood. It has not re occurred. We will watch and wait on this. ROV 6 weeks. Coding Level of Care Code Est Pt Level 3 (23628) Diagnoses GERD (gastroesophageal reflux disease) K21.9 Irritable bowel syndrome with both constipation and diarrhea K58.2
[2023-09-02 12:23] VITALS: BP 139/67; PULSE 53; BMI 34.6
== END 2023-09-02 13:11 | disposition home or self-care (01) ==
PROVIDERS: PCP Internal Medicine; Visit Provider Nurse Practitioner
DX: K21.9 Gastro-esophageal reflux disease without esophagitis (principal); K58.2 Mixed irritable bowel syndrome
CPT/HCPCS: 99213

== ENCOUNTER → 2023-09-02 11:53 | Outpatient (BNVA) | payer MEDICAID, SELFPAY | PROVIDERS: PCP Internal Medicine; Visit Provider Nurse Practitioner | DX: K21.9 Gastro-esophageal reflux disease without esophagitis (principal); K58.2 Mixed irritable bowel syndrome; K80.20 Calculus of gallbladder without cholecystitis without obstruction; E66.9 Obesity, unspecified; Z98.84 Bariatric surgery status; Z68.34 Body mass index [BMI] 34.0-34.9, adult | CPT/HCPCS: 99212 ==

== ENCOUNTER 2023-09-16 12:00 | Outpatient (REF) | payer MEDICAID, SELFPAY ==
[2023-09-16 13:16] LABS: MANUAL DIFF FLAG NO
[2023-09-16 13:26] LABS: Basophils Absolute Auto 0.1 X10*3/uL (0.0-0.2); Basophils Percent Auto 1.2 % (0-2); Eosinophils Absolute Auto 0.1 X10*3/uL (0.0-0.4); Eosinophils Percent Auto 1.2 % (0-4); Hematocrit 44.8 % (37.0-47.0); Hemoglobin 14.8 g/dl (12.0-16.0); Imm Gran Abs Auto 0.02 X10*3/uL (0.00-0.03); Imm Gran Pct Auto 0.3 % (0.0-0.4); Lymphocytes Absolute Auto 2.1 X10*3/uL (1.2-4.9); Lymphocytes Percent Auto 29.9 % (20-40); Mean Corpuscular Volume 90.7 fL (80.0-98.0); Mean Platelet Volume 10.5 fL (9.4-12.3); Monocytes Absolute Auto 0.5 X10*3/uL (0.1-1.2); Neutrophils Absolute Auto 4.2 x10*3/uL (2.0-8.3); Neutrophils Percent Auto 60.4 % (45-73); Platelet Count 239 X10*3/uL (160-400); Red Blood Count 4.94 X10*6/uL (4.20-5.50); White Blood Count 6.9 X10*3/uL (4.8-10.8)
[2023-09-16 14:08] LABS: Alanine Aminotransferase 14 U/L (0-31); Albumin Level 4.3 g/dL (3.5-5.0); Alkaline Phosphatase 108 U/L (39-117); Anion Gap 11 (12-20); Aspartate Amino Transferase 15 U/L (5-31); Bilirubin Total 0.8 mg/dL (0.0-1.0); Blood Urea Nitrogen 13 mg/dL (9-16); Calcium 9.5 mg/dL (8.4-10.2); Carbon Dioxide 28 mmol/L (22-29); Chloride 108 mmol/L (96-108); Cholesterol 142 mg/dL (<200); Estimated Glomerular Filt Rate > 60; Glucose Random 128 mg/dL (60-115); HDL Cholesterol 45 mg/dL (>40); LDL Cholesterol Calculated 86 mg/dL (<100); Potassium 3.7 mmol/L (3.3-5.1); Sodium 143 mmol/L (135-145); Total Protein 7.8 g/dL (6.5-8.0); Triglycerides 58 mg/dL (<150)
[2023-09-16 14:24] LABS: TSH reflex Free T4 0.92 uIU/mL (0.32-4.0)
[2023-09-16 14:39] LABS: Reflex LDLD? No
== END 2023-09-16 12:01 | disposition home or self-care (01) ==
LOC: HO.HHCL 12:00
PROVIDERS: Visit Provider Internal Medicine
DX: E11.65 Type 2 diabetes mellitus with hyperglycemia (principal)
CPT/HCPCS: 36415; 80053; 80061; 84443; 85025

== ENCOUNTER 2024-03-18 12:16 | Outpatient (REF) | payer MEDICAID, SELFPAY ==
--- NOTE | ~2024-03-18 | XR_ITS ---
EXAMINATION: XR HIP, LEFT CLINICAL INFORMATION: worsening COMPARISON: None available. TECHNIQUE: Two views of the left hip. FINDINGS: No fracture. Alignment is anatomic. Hip joint space is maintained. Soft tissues are unremarkable. XR/XR hip LT min 2V IMPRESSION: Normal left hip. Electronically signed by: Osei Luciano MD 03/18/2024 12:42 PM [facility]
--- OUTSIDE RECORDS SUMMARY | 2024-03-18 12:44 | XMS_ITS | Encounter Summary ---
Author Organization [facility] Address [address] [place] [address] Care Team Providers Care Wet Roaster Name Role Phone Winsome Glass MD Primary Care Provide r Encounter Details Date Type Department Care Team (Late st Contact Info) Description 01/27/2023 Orders Only [facility] [address], [place] [id number] Porter Puga MD [address] [place] [address] Social History Tobacco Use Types Packs/Day Years Used Date Smoking Tobacco: Never Passive Smoke Exposure: Never Smokeless Tobacco: Never Alcohol Use Standard Drinks/Week Comments Yes 0 (1 standard drink = 0.6 oz pur e alcohol) Depression Answer Date Recorded Patient Health Questionnaire-9 Score 9 05/22/2022 Housing Stability Answer Date Recorded What is your housing situation today? I have debra rees 12/03/[address] you li ve. Do you have problems with any of the following? None of the above 12/03/2022 Food Insecurity Answer Date Recorded Within the past 12 months, y ou worried that your food would run out before you got money to buy more: Never True 12/03/2022 Within the past 12 months,th e food you bought just didn't last and you didn't have enough money to get more: Never True Transportation Answer Date Recorded In the past 12 months, has l ack of transportation kept you from medical appts, meetings, work or from getting things needed for daily living? No 12/03/2022 Utilities Answer Date Recorded In the past 12 months, has t he electric, gas, oil or water company threatened to shut off services in your home? No 12/03/2022 Depression Answer Date Recorded Patient Health Questionnaire-2 Score 2 05/22/2022 Comments Unknown Sex and Gender Information Value Date Recorded Sex Assigned at Female 12/16/2021 10:18 AM EDT Legal Sex Female 10:18 AM EDT Gender Identity Choose not to disclose 10:18 AM EDT Sexual Orientation Straight 12/16/2021 10 :18 AM EDT documented as of this encounter Plan of Treatment Upcoming Encounters Date Type Department Care Team (Late st Contact Info) Description 06/13/2024 11:00 AM EDT Office Visit [facility] [address] [place] [address] Winsome Glass MD [address] [place] [address] documented as of this encounter Procedures Procedure Name Priority Date/Time Associated Diagnosis Comments FL UPPER GI W AIR Routine 02/25/2023 8:4 6 AM EST documented in this encounter Results * FL upper GI w air (02/25/2023 8:46 AM EST) Anatomical Region Laterality Modality Body Radiographic Fani ging 02/25/2023 8:46 AM EST Narrative 02/25/2023 4:33 PM EST ? [facility] ?[address] ?[place] [address] ? Fluoroscopy Report ? Signed ? Patient: Amparo Malcolm,Rivka ?MR#: ?? [id number] ? : 1970 ?Acct:[id number] ? Age/Sex: 52 / F ?ADM Date: 01/10/24 ? Loc: HO.XRAY ? Attending Dr: Hannah TUTTLE ? Ordering Physician: Hannah Zapata ?? Date of Service: 02/25/23 ?? Procedure(s): FL upper GI w air ?? Accession Number(s): [id number] ? cc: Winsome Glass MD; Hannah Zapata ? EXAMINATION: ?? XR FLUOROSCOPY UPPER GI WITH AIR ? CLINICAL INFORMATION: ?? Epigastric pain. History of sleeve gastrectomy. ? COMPARISON: ?? None ? TECHNIQUE: ?? Fluoroscopic air contrast upper GI examination was performed utilizing ?? standard techniques with thin and thick barium and effervescent ?? granules. Numerous spot images were obtained. ? FINDINGS: ?? Dual and single contrast images of the esophagus demonstrate normal ?? caliber, contour, and mucosal pattern. No evidence of stricture, mass, ?? or ulcerations identified. Esophageal peristalsis was normal. ? A small type I hiatal hernia is present. No significant ?? gastroesophageal reflux was seen during the course of the examination ?? and on reflux views. ? Dual contrast and single contrast images of the stomach demonstrate ?? post surgical changes consistent with prior sleeve gastrectomy. Mucosal ?? pattern is normal, without evidence of mass, ulceration, or other ?? abnormality. Contrast freely passed into the gastric antrum and ?? duodenal bulb without delay. ? Single and air-contrast images of the duodenal bulb demonstrate no ?? abnormality. The duodenal sweep has a mildly thickened fold pattern as ?? does the proximal jejunum, findings suggesting a mild enteritis. ? FLUOROSCOPY TIME: ?? 2 minutes 33 seconds ? Number of Spot Images: 13 ?? Number of Cine: 9 ? DOSE AREA PRODUCT: ?? 2108 uGy-m2 (microgray-meter squared) ? FL/FL upper GI w air ?? IMPRESSION: ?? 1. Small type I hiatal hernia. ?? 2. Postsurgical changes consistent with history of sleeve gastrectomy. ?? 3. Mildly thickened folds noted in the duodenum and proximal jejunum, ?? findings suggesting mild enteritis. ? This procedure was performed by Casa Monreal PA-C, and supervised by ?? Dr. Mckee ? Dictated By: ?Pepito Mckee MD ? Signed By: ?<Electronically signed by Pepito Mckee MD in OV> ?02/25/23 1628 ? DD/ 0846 ? TD/TT: ? [employer] Cost[employer] Maker: ? Procedure Note [facility] - 02/25/[address] [address] Fluoroscopy Report Signed Patient: Cassandra Green#: [id number] : 1970Acct:[id number] Age/Sex: 52 / FADM Date: 02/25/23 Loc: HO.XRAY Attending Dr: Hannah TUTTLE Ordering Physician: Hannah Zapata Date of Service: 02/25/23 Procedure(s): FL upper GI w air Accession Number(s): [id number] cc: Winsome Glass MD; Hannah Zapata EXAMINATION: XR FLUOROSCOPY UPPER GI WITH AIR CLINICAL INFORMATION: Epigastric pain. History of sleeve gastrectomy. COMPARISON: None TECHNIQUE: Fluoroscopic air contrast upper GI examination was performed utilizing standard techniques with thin and thick barium and effervescent granules. Numerous spot images were obtained. FINDINGS: Dual and single contrast images of the esophagus demonstrate normal caliber, contour, and mucosal pattern. No evidence of stricture, mass, or ulcerations identified. Esophageal peristalsis was normal. A small type I hiatal hernia is present. No significant gastroesophageal reflux was seen during the course of the examination and on reflux views. Dual contrast and single contrast images of the stomach demonstrate post surgical changes consistent with prior sleeve gastrectomy. Mucosal pattern is normal, without evidence of mass, ulceration, or other abnormality. Contrast freely passed into the gastric antrum and duodenal bulb without delay. Single and air-contrast images of the duodenal bulb demonstrate no abnormality. The duodenal sweep has a mildly thickened fold pattern as does the proximal jejunum, findings suggesting a mild enteritis. FLUOROSCOPY TIME: 2 minutes 33 seconds Number of Spot Images: 13 Number of Cine: 9 DOSE AREA PRODUCT: 2108 uGy-m2 (microgray-meter squared) FL/FL upper GI w air IMPRESSION: 1. Small type I hiatal hernia. 2. Postsurgical changes consistent with history of sleeve gastrectomy. 3. Mildly thickened folds noted in the duodenum and proximal jejunum, findings suggesting mild enteritis. This procedure was performed by Casa Monreal PA-C, and supervised by Dr. Mckee Dictated By: Pepito Mckee MD Signed By: <Electronically signed by Pepito Mckee MD in OV> 02/25/23 1628 DD/ 0846 TD/TT: [employer] Cost[employer] Maker: [facility] External Provider IMG FLU OROSCOPY PROCEDURES Final Result documented in this encounter Visit Diagnoses Not on filedocumented in this encounter Additional Health Concerns Assessment Noted Time PHQ-9 Depression Total Score: 9 05/23/19 23 10:50 AM EDT documented as of this encounter Care Teams Wet Roaster Relationship Specialty Start Date End Date Winsome Glass MD [address] [place] [id number] PCP - General Family Medicine 09/27/19 Lakesha Livingston [employer] Machine OperatorRelationship Associate 07/27/23 documented as of this encounter
--- OUTSIDE RECORDS SUMMARY | 2024-03-18 12:44 | XMS_ITS | Clinical Summary ---
Author Organization [facility] Address [address] [place] [address] Phone Care Team Providers Care Grain Spouter Name Role Phone Winsome Glass MD Primary Care Provide r Allergies Active Allergy Reactions Criticality Noted Date Comments Penicillins 12/02/2017 Medications Medication Sig Dispensed Refills Start Date End Date Status nebulizers misc by Not Applicable route. Active inhaler,assist device,lg mask (BREATHERITE SPACER-MASK,ADULT MISC) by Not Applicable route. Active nebulizers misc by Not Applicable route. Active fluticasone furoate (Arnuity Ellipta) 50 mcg/actuation blister with device inhaler Inhale into the lungs. Active fluticasone HFA (FLOVENT HFA) 110 mcg/actuation inhaler Inhale 1 puff by mouth 2 (two) times a day. Active albuterol HFA (PROAIR HFA ; PROVENTIL HFA ; VENTOLIN HFA) 90 mcg/actuation inhaler Inhale 2 puffs by mouth every 4 (four) hours if needed. Active acetaminophen-codei ne (TYLENOL #4) 300-60 mg per tablet Take 1 tablet by mouth every 4 (four) hours. Max Daily Amount: 6 tablets Active albuterol 2.5 mg /3 mL (0.083 %) nebulizer solution Take 1 Vial by nebulization every 4 hours as needed. Active baclofen (LIORESAL) 20 mg tablet Take 20 mg by mouth 3 times daily. Active chlorhexidine (PERIDEX) 0.12 % solution Take 15 mL by mouth 2 times daily. Active hydroCHLOROthiazide 12.5 mg tablet Take 12.5 mg by mouth daily. Active meclizine (ANTIVERT) 25 mg tablet Take by mouth. Active metFORMIN XR (GLUCOPHAGE-XR) 500 mg 24 hr tablet Take 1 tablet (500 mg total) by mouth. Active montelukast (SINGULAIR) 10 mg tablet Take 1 tablet (10 mg total) by mouth at bedtime. Active nabumetone (RELAFEN) 500 mg tablet Take 1 tablet (500 mg total) by mouth 2 (two) times a day. Active oxyCODONE (ROXICODONE) 5 mg immediate release tablet Take one tablet every 4 hours as needed for severe pain. 01/27/2018 Active RANITIDINE HCL ORAL Take 75 mg by mouth 2 times daily. Active valACYclovir (VALTREX) 500 mg tablet Take 500 mg by mouth 3 times daily. Active zolpidem (AMBIEN) 10 mg tablet Take by mouth at bedtime as needed. 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 LSO w small remanent ovary left due to adhesion Medical History Medical History Date Comments Diabetes mellitus type 2, co ntrolled, with complications (CMS/HCC) DX:Diabetes mellitus type 2, controlled, with complications (HCC) Family History Medical History Relation Name Comments Other: Other Maternal Grandmother Relation Name Status Comments Maternal Grandmother skin ca ncer Social History Tobacco Use Types Packs/Day Years Used Date Smoking Tobacco: Light Smoker Smokeless Tobacco: Never Alcohol Use Standard Drinks/Week Comments Yes 0 (1 standard drink = 0.6 oz pur e alcohol) Sex and Gender Information Value Date Recorded Sex Assigned at Not on file Gender Identity Not on file Sexual Orientation Not on file Job Start Date Occupation Industry Not on file Not on file Not on file Obstetrics History Plan of Treatment Health Maintenance Due Date Last Done Comments Breast Cancer Screening 1970 Diabetes: Annual GFR (Glomer ular Filtration Rate) 1970 Pneumococcal Vaccine: Pediat rics (0 to 5 Years) and At-Risk Patients (6 to 64 Years) (1 of 2 - PCV) 1976 Diabetes: Annual Foot Exam 1980 Diabetes: Annual Retina Eye Exam 1980 DTaP,Tdap,and Td Vaccines (1 - Tdap) 1989 Hepatitis B Vaccines (1 of 3 - 19+ 3-dose series) 1989 Cervical Cancer Screening: P ap Smear 06/28/1991 Zoster Vaccines (1 of 2) 2020 Cholesterol Screening (Lipid Panel) 01/19/2022 Colorectal Cancer Screening: Colonoscopy 01/19/2022 Depression Screening 01/19/2022 HIV Screening 01/19/2022 Hepatitis C Screening 01/19/2022 Social Influencers of Health Screening 01/19/2022 Diabetes: Annual Urine Albumin-Creatinine Ratio (uACR) 02/01/2022 Diabetes: Blood Sugar Contro l Test (HGBA1C) 02/01/2022 COVID-19 Vaccine ( - 2023-2 5 season) 2023 Influenza Vaccine (#1) 2023 HIB Vaccines Aged Out No longer eligi ble based on patient's age to complete this topic HPV Vaccines Aged Out No longer eligi ble based on patient's age to complete this topic Hepatitis A Vaccines Aged Out No long er eligible based on patient's age to complete this topic IPV Vaccines Aged Out No longer eligi ble based on patient's age to complete this topic MMR Vaccines Aged Out No longer eligi ble based on patient's age to complete this topic Meningococcal ACWY Vaccine Aged Out N o longer eligible based on patient's age to complete this topic RSV Immunization Patients Un parvez 20 months Aged Out No longer eligible b ased on patient's age to complete this topic Varicella Vaccines Aged Out No longer eligible based on patient's age to complete this topic Care Teams Grain Spouter Relationship Specialty Start Date End Date Winsome Glass MD [address] [place] [phone] PCP - General 09/18/23
--- OUTSIDE RECORDS SUMMARY | 2024-03-18 12:44 | XMS_ITS | Encounter Summary ---
Author Organization [employer] Address [address] [facility] 7t [place] [address] Care Team Providers Care Pharmacist Technician Name Role Phone Winsome Glass MD Primary Care Provide r Reason for Visit * Reason Onset Date Comments Nurse Triage 09/03/2023 Encounter Details Date Type Department Care Team ([facility] st Contact Info) Description 09/03/2023 Telephone [facility] [address] [place] [address] Winsome Glass MD [address] [place] [address] Nurse Triage Social History Tobacco Use Types Packs/Day Years [...] AM EDT documented as of this encounter Miscellaneous Notes * Telephone Encounter - Ceci Mc RN - 09/03/2023 3:56 PM EDT Call returned to Rivka Malcolm to triage below. Reports having a slip and fall where hit face x 3 weeks ago. Per pt having tip of nose not swollen or bruised. Per pt pain is worse with applied pressure. Pt advised of disposition, advised due to end of day call and no extended hours, can seek or [facility] tomorrow for exam .Reviewed [facility] operating hours and that wait times vary. Pt wants OV with PCP. Advised nothing before Physical Exam appt already booked for September. Pt advised can call for cancellations or make sure concerns are brought up during physical exam. Pt wants OV with PCP. Ptadvised will send to [place] to book OV if one is available as not able to book anything within 2 weeks and already has pending appt. Protocol Used: Nose Injury (Adult) Protocol-Based Disposition: See in Office or Video Visit Today Future Appointments Date Time Provider Department Center 10/05/2023 2:00 PM Winsome Davis MD MEDICINE [facility] Positive Triage Question: * Tip of nose is very tender * All higher-acuity triage questions were negative Care Advice Discussed: * Reassurance and Education - Direct Blow (Contusion, Bruise) * Use a Cold Pack for Pain, Swelling, or Bruising * Reasons To Call Back - Pain becomes severe - Signs of infection occur (a yellow discharge, redness or increasing tenderness, or fever) - You become worse * Telephone Encounter - Ceci Mc RN - 09/03/2023 3:45 PM EDT Call returned to Rivka Malcolm for triage below. No answer LVM to return call to [facility] triage line [phone]. * Telephone Encounter - Darling Marcos - 09/03/2023 3:41 PM EDT Symptoms: Fall, Nose Pain Outcome: Schedule an urgent appointment (within 1 hour) or talk to a nurse or provider soon Reason: Severe pain now The caller accepted this outcome Please contact pt @ [phone] documented in this encounter Plan of Treatment Upcoming Encounters Date Type Department Care Team (Late st Contact Info) Description 06/13/2024 11:00 AM EDT Office Visit [facility] [address] [place] [phone] Winsome Glass MD [address] [place] [address] documented as of this encounter Visit Diagnoses Not on filedocumented in this encounter Additional Health Concerns Assessment Noted Time PHQ-9 Depression Total Score: 9 05/23/19 23 10:50 AM EDT documented as of this encounter Care Teams Pharmacist Technician Relationship Specialty Start Date End Date Winsome lGass MD [address] [place], [place] [phone] PCP - General Family Medicine 09/27/19 Lakesha Livingston Billing And Accounting Staff AssistantLearning Developer 07/27/23 documented as of this encounter
--- OUTSIDE RECORDS SUMMARY | 2024-03-18 12:44 | XMS_ITS | Encounter Summary ---
Author Organization [employer] Address 75 [facility] 7t [place] [address] Care Team Providers Care Dumbwaiter Operator Name Role Phone Winsome Glass MD Primary Care Provide r Reason for Visit * Reason Comments Med Refill Encounter Details Date Type Department Care Team (Late st Contact Info) Description 08/11/2023 Refill [facility] [address] [place], [place] [phone] Winsome Glass MD [address] [place], [place] [phone] Onychomycosis Social History Tobacco Use Types Packs/Day Years [...] encounter Miscellaneous Notes * Telephone Encounter - Winsome Davis MD - 08/11/2023 4:48 PM EDT I can't refilled it I will check with patient on next appointment documented in this encounter Plan of Treatment Upcoming Encounters Date Type Department Care Team (Late st Contact Info) Description 06/13/2024 11:00 AM EDT Office Visit [facility] [address] [place] [phone] Winsome Glass MD [address] [place] [address] documented as of this encounter Visit Diagnoses Diagnosis Onychomycosis Dermatophytosis of nail documented in this encounter Additional Health Concerns Assessment Noted Time PHQ-9 Depression Total Score: 9 05/23/19 23 10:50 AM EDT documented as of this encounter Care Teams Dumbwaiter Operator Relationship Specialty Start Date End Date Winsome Glass MD [address] [place] [phone] PCP - General Family Medicine 09/27/19 Lakesha Livingston Inspector Quality AssuranceFitness Center Attendant 07/27/23 documented as of this encounter
--- OUTSIDE RECORDS SUMMARY | 2024-03-18 12:44 | XMS_ITS | Encounter Summary ---
Author Organization [employer] Address [address] [facility] 7t [place] [address] Care Team Providers Care Legal Service Specialist Name Role Phone Winsome Glass MD Primary Care Provide r Reason for Visit * Reason Onset Date Comments Referral 09/03/2023 Encounter Details Date Type Department Care Team ([facility] st Contact Info) Description 09/03/2023 Telephone [facility] [address] [place] [address] Winsome Glass MD [address] [place] [address] Referral Social History Tobacco Use Types Packs/Day Years [...] encounter Miscellaneous Notes * Telephone Encounter - Rimma Flores - 09/03/2023 3:37 PM EDT Tc from Kae at [facility] requesting a referral for pt for a food program. Any questions contact Shanita at [phone] documented in this encounter Plan of Treatment Upcoming Encounters Date Type Department Care Team (Late st Contact Info) Description 06/13/2024 11:00 AM EDT Office Visit [facility] [address] [place] [phone] Winsome Glass MD [address] [place] [address] documented as of this encounter Visit Diagnoses Not on filedocumented in this encounter Additional Health Concerns Assessment Noted Time PHQ-9 Depression Total Score: 9 05/23/19 23 10:50 AM EDT documented as of this encounter Care Teams Legal Service Specialist Relationship Specialty Start Date End Date Winsome Glass MD [address] [place] [address] [phone] PCP - General Family Medicine 09/27/19 Lakesha Livingston Electrician AssistantCherry Grower 07/27/23 documented as of this encounter
--- OUTSIDE RECORDS SUMMARY | 2024-03-18 12:44 | XMS_ITS | Encounter Summary ---
Author Organization [employer] Address [address] [facility] [address] 7t [place] [address] Care Team Providers Care Director Of Emergency Nursing Name Role Phone Winsome Glass MD Primary Care Provide r Encounter Details Date Type Department Care Team (Late st Contact Info) Description 04/02/2023 Telephone [facility]INE [address] [place], [place] [phone] Winsome Glass MD [address] [place], [place] [phone] Social History Tobacco Use Types Packs/Day Years [...] encounter Miscellaneous Notes * Telephone Encounter - Zamzam Heart RN - 04/02/2023 2:49 PM EST TC to Alethea Day case picker at [facility], had to leave VM message would like to discuss increasing REGULATORY ATTORNEY hours for patient. I have contacted [facility] on 01/30/23 and 02/19/23 and have left VM messages with no response back. Awaiting return call. documented in this encounter Plan of Treatment Upcoming Encounters Date Type Department Care Team (Late st Contact Info) Description 06/13/2024 11:00 AM EDT Office Visit [facility] [address] [place] [address] Winsome Glass MD [address] [place] [address] documented as of this encounter Visit Diagnoses Not on filedocumented in this encounter Additional Health Concerns Assessment Noted Time PHQ-9 Depression Total Score: 9 05/23/19 23 10:50 AM EDT documented as of this encounter Care Teams Director Of Emergency Nursing Relationship Specialty Start Date End Date Winsome Glass MD [address] [place] [address] PCP - General Family Medicine 09/27/19 Lakesha Livingston Environmental LawyerDistillation Operator Helper 07/27/23 documented as of this encounter
--- OUTSIDE RECORDS SUMMARY | 2024-03-18 12:45 | XMS_ITS | Encounter Summary ---
Author Organization [employer] [facility] [facility] Address [address] [place] [address] 7t [place] [address] Care Team Providers Care Software Engineering Analyst Name Role Phone Winsome Glass MD Primary Care Provide r Encounter Details Date Type Department Care Team (Latest Contact Info) Description 02/24/2020 Abstract [facility] CONVERSIONS Dental, Provider, DDS Social History Tobacco Use Types Packs/Day Years Used Date Smoking Tobacco: Never Assessed Comments Unknown Sex and Gender Information Value [...] Description 06/13/2024 11:00 AM EDT Office Visit [facility] [address] [place] [address] Winsome Glass MD [address] [place] [address] documented as of this encounter Visit Diagnoses Not on filedocumented in this encounter Care Teams Software Engineering Analyst Relationship Specialty Start Date End Date Winsome Glass MD [address] [place] [phone] PCP - General Family Medicine 09/27/19 Lakesha Livingston Coding AdvisorSales Administration Specialist 07/27/23 documented as of this encounter
--- OUTSIDE RECORDS SUMMARY | 2024-03-18 12:45 | XMS_ITS | Encounter Summary ---
Author Organization [employer] Address [address] [facility] [address] 7[address] [place] [address] Care Team Providers Care Senior Construction Estimator Name Role Phone Winsome Glass MD Primary Care Provide r Encounter Details Date Type Department Care Team (Late st Contact Info) Description 03/04/2024 3:15 PM EST Office Visit [facility] [address] [place] [address] Winsome Glass MD [address] [place] [address] Neck pain (Primary Dx); Type 2 diabetes mellitus without complication, without long-term current use of insulin (CMS/HCC); Acute pain of right shoulder Social History Tobacco Use Types Packs/Day Years Used Date Smoking Tobacco: Never Passive Smoke Exposure: Never Smokeless Tobacco: Never Alcohol Use Standard Drinks/Week Comments Yes 0 (1 standard drink = 0.6 oz pur e alcohol) Alcohol Answer Date Recorded Frequency of Alcohol Consumption Not on file 09/16/2023 Average Number of Drinks Not on file 024 Frequency of Binge Drinking Not on file 08/18 Score 0 09/16/2023 Depression Answer Date Recorded Patient Health Questionnaire-9 Score 11 09/16/2023 Patient Health Questionnaire-9 Score 11 09/16/2023 Last PHQ-9: Questionnaire Data Not on file 0 09/16/2023 Housing Stability Answer Date Recorded What is your housing situation today? I have housing today, but I am worried about losing housing in the future 09/16/[address] you li ve. Do you have problems with any of the following? Mold 09/16/2023 Food Insecurity Answer Date Recorded Within the past 12 months, y ou worried that your food would run out before you got money to buy more: Sometimes True 2023 Within the past 12 months,th e food you bought just didn't last and you didn't have enough money to get more: Often true 09/16/2023 Transportation Answer Date Recorded In the past 12 months, has l ack of transportation kept you from medical appts, meetings, work or from getting things needed for daily living? No 12/03/2022 Utilities Answer Date Recorded In the past 12 months, has t he electric, gas, oil or water company threatened to shut off services in your home? I am not sure 09/16/2023 Depression Answer Date Recorded Patient Health Questionnaire-2 Score 2 09/16/2023 Internet Access Answer Date Recorded Internet Access Q1 I am not sure 10/19/2023 Internet Access Q2 Not on file 10/19/2023 Comments Unknown Sex and Gender Information Value Date Recorded Sex Assigned at Female 12/16/2021 10:18 AM EDT Legal Sex Female 10:18 AM EDT Gender Identity Choose not to disclose 10:18 AM EDT Sexual Orientation Straight 12/16/2021 10 :18 AM EDT documented as of this encounter Last Filed Vital Signs Vital Sign Reading Time Taken Comments Blood Pressure 118/74 03/04/2024 3:31 PM EST Pulse 72 03/04/2024 3:31 PM EST Temperature 36.1 ??C (96.9 ??F) 03/04/2024 3:31 PM ES T Respiratory Rate 18 03/04/2024 3:31 PM EST Oxygen Saturation - - Inhaled Oxygen Concentration - - Weight 74.9 kg (165 lb 2 oz) 03/04/2024 3:31 PM EST Height 154.9 cm (5' 1 ) 03/04/2024 3:31 PM EST Body Mass Index 31.2 03/04/2024 3:31 PM EST documented in this encounter Progress Notes * Winsome Davis MD - 03/04/2024 3:15 PM EST SUBJECTIVE: Rivka Malcolm is a 53 y.o. year old adult who presents for Follow up . Acute Concerns: Patient reports she has being having right side neck pain and right shoulder pain, she does not know if she slept wrong, she does not recall a triggering activity, she admits she is under a lot of stress Social History Social History Narrative Not on file Patient Active Problem List Diagnosis Type 2 diabetes mellitus with hyperglycemia, without long-term current use of insulin ([facility]) Encounter for preventive health examination Bunion of right foot Fibromyalgia Renal cyst Dislocation of symphysis pubis Fracture of pelvis ([facility]) Genital herpes simplex Mild persistent asthma without complication Shoulder injury related to vaccine administration ([facility]) Varicose veins of lower extremity Chronic otitis externa of left ear Mood disorder ([facility]) Palpitations Right lower quadrant pain Shoulder pain Skin tag Renal mass Neck pain Chronic otitis media Onychomycosis Pain in lower back Depression with anxiety Diarrhea Gallstones Irritable bowel syndrome with both constipation and diarrhea Malabsorption due to intolerance, not elsewhere classified Myofascial pain Nausea and vomiting Obesity (BMI 30.0-34.9) S/P laparoscopic sleeve gastrectomy Upper abdominal pain Varicose veins of both lower extremities Cervicalgia Chronic left shoulder pain Chronic low back pain Osteopenia of multiple sites Spina bifida occulta Symptomatic irreversible pulpitis Dental caries Left foot pain Left hip pain Class 2 severe obesity due to excess calories with serious comorbidity and body mass index (BMI) of35.0 to 35.9 in adult ([facility]) Primary hypertension Colon cancer screening Right hip pain Bilateral hip pain Preop examination Dizziness Discoloration of skin Acute otitis externa of left ear Class 1 obesity due to excess calories with serious comorbidity and body mass index (BMI) of 34.0 to 34.9 in adult Decreased vision Encounter for screening mammogram for malignant neoplasm of breast Acute pain of right shoulder No family history on file. Review of Systems Constitutional: Negative. HENT: Negative. Respiratory: Negative. Cardiovascular: Negative. Musculoskeletal: Positive for arthralgias and myalgias. OBJECTIVE: Vitals: 03/04/24 1531 BP: 118/74 BP Location: Left arm Patient Position: Sitting BP Cuff Size: Adult Pulse: 72 Resp: 18 Temp: 96.9 ??F (36.1 ??C) TempSrc: Oral Weight: 165 lb 2 oz (74.9 kg) Height: 5' 1 (1.549 m) Physical Exam Constitutional: Appearance: Normal appearance. Cardiovascular: Rate and Rhythm: Normal rate and regular rhythm. Pulmonary: Effort: Pulmonary effort is normal. Breath sounds: Normal breath sounds. Abdominal: General: Abdomen is flat. Palpations: Abdomen is soft. Musculoskeletal: Right shoulder: Tenderness present. Decreased range of motion. Cervical back: Torticollis present. Decreased range of motion. Neurological: Mental Status: She is alert. Follow Up: Follow up in about 3 months (around 06/02/2024) for chronic conditions . Current Outpatient Medications on File Prior to Visit Medication Sig Dispense Refill albuterol (2.5 MG/3ML) 0.083% nebulizer solution USE 3 ML VIA NEBULIZER 3 TIMES A DAY 75 mL 2 albuterol (Ventolin HFA) 108 (90 Base) MCG/ACT inhaler INHALE 2 PUFFS BY MOUTH EVERY 4 HOURS IF NEEDED FOR SHORTNESS OF BREATH 18 g 0 atorvastatin (Lipitor) 40 MG tablet TAKE 1 TABLET BY MOUTH EVERY DAY 90 tablet 3 ciclopirox (Penlac) 8 % solution Apply topically at bedtime. 30 mL 1 cyclobenzaprine (Flexeril) 5 MG tablet Take 1 tablet up to three times daily for back pain/spasm 30tablet 0 Diclofenac Sodium 1 % gel APPLY 1 INCH TOPICALLY IF NEEDED IN THE MORNING AND AT BEDTIME (APPLY TWICE A DAY ON AFFECTED AREA NEEDED) 100 g 1 dicyclomine (Bentyl) 20 MG tablet Take 20 mg by mouth if needed in the morning, at noon, and at bedtime. empagliflozin (Jardiance) 25 MG Take 1 tablet (25 mg) by mouth Once per day. 30 tablet 11 estradiol (Estrace) 0.1 MG/GM vaginal cream Insert 1 g into the vagina 2 (two) times a week. 42.5 g1 FREESTYLE LITE test strip USE TO TEST TWICE A DAY gabapentin (Neurontin) 600 MG tablet Take 0.5 tablets (300 mg) by mouth every 8 (eight) hours. 90 tablet 2 glipiZIDE XL (Glucotrol XL) 2.5 MG 24 hr tablet TAKE 1 TABLET BY MOUTH ONCE PER DAY. DO NOT CRUSH, CHEW, OR SPLIT. 90 tablet 0 hydroCHLOROthiazide (HYDRODiuril) 12.5 MG tablet TAKE 1 TABLET BY MOUTH EVERY MORNING 90 tablet 3 ibuprofen 600 MG tablet TOME ALEXYS TABLETA ROSIBEL VECFRANCESCO AL SRINATH 90 tablet 1 melatonin 5 MG tablet TAKE 1-2 TABLET BY MOUTH AT BEDTIME NEEDED FOR SYMPTOMS OF INSOMNIA. metFORMIN XR (Glucophage-XR) 500 MG 24 hr tablet Take 2 tablets (1,000 mg) by mouth 2 times daily. Do not crush, chew, or split. 360 tablet 3 Mometasone Furoate (Asmanex HFA) 100 MCG/ACT aerosol INHALE 1 PUFF BY MOUTH TWICE A DAY 13 g 1 Okghondy-Fuvneekkx-EG 1 % solution Administer 3 drops into affected ear(s) 4 times daily. 10 mL 0 pantoprazole (Protonix) 40 MG EC tablet Take 1 tablet (40 mg) by mouth before breakfast. Do not crush, chew, or split. 30 tablet 11 Semaglutide-Weight Management (Wegovy) 1 MG/0.5ML solution auto-injector Inject 0.5 mL (1 mg) underthe skin 1 (one) time per week. 4 mL 0 Semaglutide-Weight Management (Wegovy) 1.7 MG/0.75ML solution auto-injector Inject 0.75 mL (1.7 mg)under the skin 1 (one) time per week. 2 mL 0 terbinafine (LamISIL) 250 MG tablet TAKE 1 TABLET BY MOUTH EVERY MORNING 84 tablet 0 Tirzepatide-Weight Management (Zepbound) 2.5 MG/0.5ML solution auto-injector Inject 0.5 mL (2.5 mg)under the skin 1 (one) time per week. 2 mL 0 UltiCare Alcohol Swabs 70 % pads APPLY 1 PAD TO SKIN TWICE A DAY valACYclovir (Valtrex) 500 MG tablet Take 1 tablet (500 mg) by mouth in the morning. 30 tablet 11 No current facility-administered medications on file prior to visit. Problem List Items Addressed This Visit Neck pain - Primary Apply heat on affected area Acetaminophen PRN Baclofen Q 8hrs(patient is aware of side effect somnolence, she knows she can not drive while on this medication) Relevant Medications baclofen (Lioresal) 20 MG tablet acetaminophen (Tylenol Extra Strength) 500 MG tablet Acute pain of right shoulder Other Visit Diagnoses Type 2 diabetes mellitus without complication, without long-term current use of insulin ([facility]) Relevant Orders POCT Glucose (Completed) POCT HGB A1C (Completed) documented in this encounter Miscellaneous Notes * Assessment & Plan Note - Winsome Davis MD - 03/08/2024 12:22 PM EST Associated Problem(s): Neck pain Apply heat on affected area Acetaminophen PRN Baclofen Q 8hrs(patient is aware of side effect somnolence, she knows she can not drive while on this medication) documented in this encounter Plan of Treatment Upcoming Encounters Date Type Department Care Team (Late st Contact Info) Description 06/13/2024 11:00 AM EDT Office Visit [facility] [address] [place] [phone] Winsome Glass MD [address] [place] [address] documented as of this encounter Procedures Procedure Name Priority Date/Time Associated Diagnosis Comments POCT GLYCATED HEMOGLOBIN, TOTAL Routine 03/04/2024 3:38 PM EST Type 2 diabetes mellitus without complication, without long-term current use of insulin ([facility]) POCT GLUCOSE Routine 03/04/2024 3:35 PM EST Type 2 diabetes mellitus without complication, without long-term current use of insulin ([facility]) documented in this encounter Results * (ABNORMAL) POCT HGB A1C (03/04/2024 3:38 PM EST) Hemoglobin A1C 6.1(A) 4.0 - 6.0 % QC Media Lot # [id number] Lot# Expiration Date Blood 03/04/2024 3:38 PM EST us Winsome Davis MD POINT OF CARE TEST EN TER/EDIT ORDERABLES Final Result * POCT Glucose (03/04/2024 3:35 PM EST) Glucose Blood, POC 142 60 - 200 mg/dL QC Media Lot # [id number] Lot# Expiration Date 627 Blood Capillary blood specimen / Unknown 03/04/2024 3:35 PM EST us Winsome Davis MD POINT OF CARE TEST EN TER/EDIT ORDERABLES Final Result documented in this encounter Visit Diagnoses Diagnosis Neck pain- Primary Cervicalgia Type 2 diabetes mellitus without complication, without long-term current use of insulin ([facility]) Acute pain of right shoulder documented in this encounter Additional Health Concerns Assessment Noted Time PHQ-9 Depression Total Score: 11 024 2:31 PM EDT documented as of this encounter Care Teams Senior Construction Estimator Relationship Specialty Start Date End Date Winsome Glass MD [address] [place] [phone] PCP - General Family Medicine 09/27/19 Lakesha Livingston Teacher Of The DeafMeter Tester Primary 07/27/23 documented as of this encounter
--- OUTSIDE RECORDS SUMMARY | 2024-03-18 12:45 | XMS_ITS | Encounter Summary ---
Author Organization [employer] Address [address] [facility] 7t [place] [address] Care Team Providers Care Telegraph Inspector Name Role Phone Winsome Glass MD Primary Care Provide r Encounter Details Date Type Department Care Team (Late Contact Info) Description 07/23/2022 Orders Only [facility] [address] [place] [address] Rolanda Avelar, DDS [address] [place] [address] Social History Tobacco Use Types Packs/Day Years Used Date Smoking Tobacco: Never Passive Smoke Exposure: Never Smokeless Tobacco: Never Alcohol Use Standard Drinks/Week Comments Yes 0 (1 standard drink = 0.6 oz pur e alcohol) Depression Answer Date Recorded Patient Health Questionnaire-9 Score 9 05/22/2022 Depression Answer Date Recorded Patient Health Questionnaire-2 Score 2 05/22/2022 Comments Unknown Sex and Gender Information Value Date Recorded Sex Assigned at Female 12/16/2021 10:18 AM EDT Legal Sex Female 10:18 AM EDT Gender Identity Choose not to disclose 10:18 AM EDT Sexual Orientation Straight 12/16/2021 10 :18 AM EDT COVID-19 Exposure Response Date Recorded In the last 10 days, have yo u been in contact with someone who was confirmed or suspected to have Coronavirus/COVID-19? No / Unsure 07/02/2022 11:11 AM EDT documented as of this encounter Plan of Treatment Upcoming Encounters Date Type Department Care Team (Late Contact Info) Description 06/13/2024 11:00 AM EDT Office Visit [facility] MED[facility]INE [address] [place] [address] Winsome Glass MD [address] [place] [address] documented as of this encounter Visit Diagnoses Not on filedocumented in this encounter Additional Health Concerns Assessment Noted Time PHQ-9 Depression Total Score: 9 05/23/19 23 10:50 AM EDT documented as of this encounter Care Teams Telegraph Inspector Relationship Specialty Start Date End Date Winsome Glass MD [address] [place], [place] [phone] PCP - General Family Medicine 09/27/19 Lakesha Livingston Diamond SanderOffice Service Coordinator 07/27/23 documented as of this encounter
--- OUTSIDE RECORDS SUMMARY | 2024-03-18 12:45 | XMS_ITS | Encounter Summary ---
Author Organization [employer] Address [address] [facility] [address] [place] [address] Care Team Providers Care Local Area Network Systems Adminstrator Name Role Phone Winsome Glass MD Primary Care Provide r Reason for Visit * Reason Onset Date Comments Medication Question 02/24/2024 Encounter Details Date Type Department Care Team ([facility] st Contact Info) Description 02/24/2024 Telephone [facility] [address] [place] [address] Winsome Glass MD [address] [place] [address] Medication Question Social History Tobacco Use Types Packs/Day Years [...] the past 12 months, has t he [employer], gas, oil or water [employer] threatened to shut off services in your [...] encounter Miscellaneous Notes * Telephone Encounter - Yudelka Núñez RN - 02/24/2024 11:03 AM EST TC placed to patient [phone] via [employer] (Jodi #[id number]) in regards to below message.Patient reports she administered the wegovy medication today however she did not hear the click once the medication was administered. Patient is not sure if she received the medication however she did not feel an injection in her abdomen. Patient reports when she removed the wegovy from her abdomen and did not see a needle. Patient reports all the liquid was on the floor. Patient reports she will not attempt to inject wegovy today and will wait until next week for her next scheduled dose. Patient would like to know how to obtain an additional wegovy dose d/t faulty dose. RN called pharmacy who reports the patient will need to call the manager of manufacturing at and inform them of faulty dose to see if they can send her additional dose. Pharmacy also reports, wegovy medication willnot be covered by patients insurance anymore and patient will be switched to zepbound (RX already sent and is processing in pharmacy). RN informed patient she would need to call manager of manufacturing to inform of faulty injection and inquire if they can send a replacement however medication is going to be switched to Zepbound therefore it may be best for patient to finish wegovy doses she has and then start the zepbound. Patient verbalized understanding. Patient to f/u PRN. * Telephone Encounter - Marilia Sandhya Espinosa - 02/24/2024 10:43 AM EST Tc from pt stating 2nd wegovy injection was damaged. Pt requested a call back, wants to to know if can inject one of the other two she has or just wait. [phone] (Arabic) documented in this encounter Plan of Treatment Upcoming Encounters Date Type Department Care Team (Late st Contact Info) Description 06/13/2024 11:00 AM EDT Office Visit [facility] [address] [place], [place] [phone] Winsome Glass MD [address] [place] [address] documented as of this encounter Visit Diagnoses Not on filedocumented in this encounter Additional Health Concerns Assessment Noted Time PHQ-9 Depression Total Score: 11 024 2:31 PM EDT documented as of this encounter Care Teams Local Area Network Systems Adminstrator Relationship Specialty Start Date End Date Winsome Glass MD [address] [place], [place] [phone] PCP - General Family Medicine 09/27/19 Lakesha Liivngston Financial Reserve ClerkZipper Lining Folder 07/27/23 documented as of this encounter
--- OUTSIDE RECORDS SUMMARY | 2024-03-18 12:45 | XMS_ITS | Encounter Summary ---
Author Organization [employer] Address [address] [place] [address] [address] [place] [address] Care Team Providers Care House Worker General Name Role Phone Winsome Glass MD Primary Care Provide r Reason for Visit * Reason Onset Date Comments Appointment 08/27/2022 Encounter Details Date Type Department Care Team ([facility] st Contact Info) Description 08/27/[address] [facility] [address] [place] [address] Rolanda Avelar, DDS [address] [place] [address] Appointment Social History Tobacco Use Types Packs/Day Years [...] suspected to have Coronavirus/COVID-19? No / Unsure 07/31/2022 1:09 PM EDT documented as of this encounter Plan of Treatment Upcoming Encounters Date Type Department Care Team (Late st Contact Info) Description 06/13/2024 11:00 AM EDT Office [address] [facility] [address] [place] [address] Winsome Glass MD [address] [place] [address] documented as of this encounter Visit Diagnoses Not on filedocumented in this encounter Additional Health Concerns Assessment Noted Time PHQ-9 Depression Total Score: 9 05/23/19 23 10:50 AM EDT documented as of this encounter Care Teams House Worker General Relationship Specialty Start Date End Date Winsome Glass MD [address] [place] [id number] PCP - General Family Medicine 09/27/19 Lakesha Livingston Cage ManagerTraveling Accountant 07/27/23 documented as of this encounter
--- OUTSIDE RECORDS SUMMARY | 2024-03-18 12:45 | XMS_ITS | Encounter Summary ---
Author Organization [employer] Address [address] [facility] [address] [place] [address] Care Team Providers Care Customer Solutions Architect Name Role Phone Winsome Glass MD Primary Care Provide r Encounter Details Date Type Department Care Team ([facility] Contact Info) Description 04/25/2022 Telephone [facility] [address] [place] [address] [phone] Winsome Glass MD [address] [place] [address] [phone] Social History Tobacco Use Types Packs/Day Years Used Date Smoking Tobacco: Never Smokeless Tobacco: Never Alcohol Use Standard Drinks/Week Comments Yes 0 (1 standard drink = 0.6 oz pur e alcohol) Comments Unknown Sex and Gender Information Value Date Recorded Sex Assigned at Female 12/16/2021 10:18 AM EDT Legal Sex Female 10:18 AM EDT Gender Identity Choose not to disclose 10:18 AM EDT Sexual Orientation Straight 12/16/2021 10 :18 AM EDT documented as of this encounter Plan of Treatment Upcoming Encounters Date Type Department Care Team ([facility] Contact Info) Description 06/13/2024 11:00 AM EDT Office Visit [facility] [address] [place] [address] [phone] Winsome Glass MD [address] [place] [address] [phone] documented as of this encounter Visit Diagnoses Not on filedocumented in this encounter Care Teams Customer Solutions Architect Relationship Specialty Start Date End Date Winsome Glass MD [address] [place] [address] PCP - General Family Medicine 09/27/19 Lakesha Livingston Landscaping ManagerTranscription Typist 07/27/23 documented as of this encounter
--- OUTSIDE RECORDS SUMMARY | 2024-03-18 12:45 | XMS_ITS | Encounter Summary ---
Author Organization [email or web address] Address [address] [place] [address] Care Team Providers Care Pegger Name Role Phone Winsome Glass MD Primary Care Provide r Encounter Details Date Type Department Care Team (Latest Contact Info) Description 03/04/2024 Travel Social History Tobacco Use Types Packs/Day Years [...] 06/13/2024 11:00 AM EDT Office Visit [facility] [address] [place] [address] Winsome Glass MD [address] [place] [address] documented as of this encounter Visit Diagnoses Not on filedocumented in this encounter Additional Health Concerns Assessment Noted Time PHQ-9 Depression Total Score: 11 024 2:31 PM EDT documented as of this encounter Care Teams Pegger Relationship Specialty Start Date End Date Winsome Glass MD [address] [place] [address] PCP - General Family Medicine 09/27/19 Lakesha Livingston Instructor Industrial DesignPipe Fitter Ammonia 07/27/23 documented as of this encounter
--- OUTSIDE RECORDS SUMMARY | 2024-03-18 12:45 | XMS_ITS | Clinical Summary ---
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 01/16/20 22 Active FREESTYLE LITE test strip USE TO TEST TWICE A DAY 11/15/19 22 Active albuterol (2.5 MG/3ML) 0.083% nebulizer solutionIndicati ons:Mild persistent asthma without complication USE 3 ML VIA NEBULIZER 3 TIMES A DAY 75 mL 2 05/23/19 23 Active ciclopirox (Penlac) 8 % solutionIndicati ons:Onychomycosi s Apply topically at bedtime. 30 mL 1 05/23/19 23 Active estradiol (Estrace) 0.1 MG/GM vaginal cream Insert 1 g into the vagina 2 (two) times a week. 42.5 g 1 10/24/19 23 Active valACYclovir (Valtrex) 500 MG tablet Take 1 tablet (500 mg) by mouth in the morning. 30 tablet 11 10/24/19 23 Active ibuprofen 600 MG tabletIndication s:Costochondriti s TOME ALEXYS TABLETA ROSIBEL VECES AL SRINATH 90 tablet 1 11/20/19 23 Active melatonin 5 MG tablet TAKE 1-2 TABLET BY MOUTH AT BEDTIME NEEDED FOR SYMPTOMS OF INSOMNIA. 10/23/19 23 Active albuterol (Ventolin HFA) 108 (90 Base) MCG/ACT inhalerIndicatio ns:Mild persistent asthma without complication INHALE 2 PUFFS BY MOUTH EVERY 4 HOURS IF NEEDED FOR SHORTNESS OF BREATH 18 g 01/20/20 23 Active cyclobenzaprine (Flexeril) 5 MG tabletIndication s:Right hip pain,Acute midline low back pain, unspecified whether sciatica present Take 1 tablet up to three times daily for back pain/spasm 30 tablet 01/28/20 23 Active pantoprazole (Protonix) 40 MG EC tabletIndication s:Upper abdominal pain Take 1 tablet (40 mg) by mouth before breakfast. Do not crush, chew, or split. 30 tablet 11 03/18/19 24 Active Mometasone Furoate (Asmanex HFA) 100 MCG/ACT aerosolIndicatio ns:Mild persistent asthma without complication INHALE 1 PUFF BY MOUTH TWICE A DAY 13 g 1 05/05/19 24 Active hydroCHLOROthiaz damian (HYDRODiuril) 12.5 MG tabletIndication s:Primary hypertension TAKE 1 TABLET BY MOUTH EVERY MORNING 90 tablet 3 06/19/19 24 Active Neomycin-Polymyx in-HC 1 % solutionIndicati ons:Acute otitis externa of left ear, unspecified type Administer 3 drops into affected ear(s) 4 times daily. 10 mL 09/16/19 24 Active terbinafine (LamISIL) 250 MG tabletIndication s:Onychomycosis TAKE 1 TABLET BY MOUTH EVERY MORNING 84 tablet 09/16/19 24 Active Diclofenac Sodium 1 % gelIndications:C ervicalgia,Chron ic left shoulder pain APPLY 1 INCH TOPICALLY IF NEEDED IN THE MORNING AND AT BEDTIME (APPLY TWICE A DAY ON AFFECTED AREA NEEDED) 100 g 1 12/11/19 24 Active gabapentin (Neurontin) 600 MG tabletIndication s:Fibromyalgia Take 0.5 tablets (300 mg) by mouth every 8 (eight) hours. 90 tablet 2 01/12/20 24 Active atorvastatin (Lipitor) 40 MG tablet TAKE 1 TABLET BY MOUTH EVERY DAY 90 tablet 3 01/12/20 24 Active Semaglutide-Weig ht Management (Wegovy) 1 MG/0.5ML solution auto-injectorInd ications:Class 1 obesity due to excess calories with serious comorbidity and body mass index (BMI) of 34.0 to 34.9 in adult Inject 0.5 mL (1 mg) under the skin 1 (one) time per week. 4 mL 01/12/20 24 Active metFORMIN XR (Glucophage-XR) 500 MG 24 hr tablet Take 2 tablets (1,000 mg) by mouth 2 times daily. Do not crush, chew, or split. 360 tablet 3 01/26/20 24 Active empagliflozin (Jardiance) 25 MGIndications:Ty pe 2 diabetes mellitus with hyperglycemia, without long-term current use of insulin (CMS/HCC) Take 1 tablet (25 mg) by mouth Once per day. 30 tablet 11 01/29/20 24 025 Active Semaglutide-Weig ht Management (Wegovy) 1.7 MG/0.75ML solution auto-injector Inject 0.75 mL (1.7 mg) under the skin 1 (one) time per week. 2 mL 02/12/20 24 Active Tirzepatide-Weig ht Management (Zepbound) 2.5 MG/0.5ML solution auto-injectorInd ications:Class 1 obesity due to excess calories with serious comorbidity and body mass index (BMI) of 34.0 to 34.9 in adult Inject 0.5 mL (2.5 mg) under the skin 1 (one) time per week. 2 mL 02/15/20 24 Active glipiZIDE XL (Glucotrol XL) 2.5 MG 24 hr tabletIndication s:Type 2 diabetes mellitus without complication, without long-term current use of insulin (CMS/HCC) TAKE 1 TABLET BY MOUTH ONCE PER DAY. DO NOT CRUSH, CHEW, OR SPLIT. 90 tablet 02/21/19 25 Active baclofen (Lioresal) 20 MG tabletIndication s:Neck pain Take 1 tablet (20 mg) by mouth 3 times daily. 30 tablet 1 03/04/19 25 025 Active glipiZIDE XL (Glucotrol XL) 2.5 MG 24 hr tabletIndication s:Type 2 diabetes mellitus without complication, without long-term current use of insulin (CMS/HCC) TAKE 1 TABLET (2.5 MG) BY MOUTH ONCE PER DAY. DO NOT CRUSH, CHEW, OR SPLIT. 90 tablet 11/26/19 24 025 Discontinued acetaminophen (Tylenol Extra Strength) 500 MG tabletIndication s:Neck pain Take 2 tablets (1,000 mg) by mouth every 8 (eight) hours if needed for moderate pain or mild pain for up to 10 days. 30 tablet 03/04/19 25 025 Active Problems Problem Noted Date Diagnosed Date Acute pain of right shoulder 03/04/2024 Class 1 obesity due to exces s calories with serious comorbidity and body mass index (BMI) of 34.0 to 34.9 in adult 10/05/2023 Assessment & Plan (11/26/2023 12:32 PM EDT): Continue wegovy f/u 4 weeks Assessment & Plan (10/05/2023 2:34 PM EDT): Patient already s/p bariatric surgery , we exhausted all methods for weight loss I will prescribe for patient today wegovy Decreased vision 10/05/2023 Encounter for screening mamm ogram for malignant neoplasm of breast 10/05/2023 Dizziness 09/16/2023 Discoloration of skin 09/16/2023 Acute otitis externa of left ear 09/16/2023 Preop examination 05/15/2023 Assessment & Plan (05/15/2023 9:58 AM EDT): Rivka is here today for pre-operative evaluation. Reports no sx of CP, SOB, GODINEZ, at rest or with exertion. No paroxsysmal nocturnal orthopnea, LE swelling or palpitations. No h/o CVD, diabetes, kidney disease, recent anticoagulant or antithrombotic use, personal h/o coagulopathy. No allergies to iodine, latex or tape. Can run across street or walk up flight of stairs without SOB or CP. RCRI score is 0 Patient is clear for procedure Bilateral hip pain 03/18/2023 Right hip pain 01/27/2023 Assessment & Plan (01/27/2023 1:10 PM EST): If pain continues or worse I advise to go to emergency room Left foot pain 09/23/2022 Left hip pain 09/23/2022 Class 2 severe obesity due t o excess calories with serious comorbidity and body mass index (BMI) of 35.0 to 35.9 in adult 09/23/2022 Primary hypertension 09/23/2022 Assessment & Plan (03/18/2023 4:29 PM EST): - Aerobic exercise to reduce BP. Initial goal of 30 min walk 3-5x/week. Increase as tolerated. - low-sodium diet (goal: <2g/day) and heart healthy diet such as DASH to reduce BP and prevent ASCVD. - Home BP monitoring 1-2 x day with goal of <140/90. - Seek immediate medical attention for chest pain, palpitations, SOB, syncope, or sudden changes in mental status. - Do not change or discontinue current prescriptions without first consulting health care provider Colon cancer screening 09/23/2022 Symptomatic irreversible pulpitis 08/27/2022 Dental caries 08/27/2022 Osteopenia of multiple sites 07/31/2022 Spina bifida occulta 07/31/2022 Overview (07/31/2022): Incidental finding on lumbar XR at ED 07/27/22, did not review with pt d/t time constraints Pain in lower back 07/30/2022 Depression with anxiety 07/30/2022 Diarrhea 07/30/2022 Gallstones 07/30/2022 Irritable bowel syndrome wit h both constipation and diarrhea 07/30/2022 Malabsorption due to intolerance, not elsewhere classified 07/30/2022 Myofascial pain 07/30/2022 Nausea and vomiting 07/30/2022 Obesity (BMI 30.0-34.9) 07/30/2022 S/P laparoscopic sleeve gastrectomy 07/30/2022 Upper abdominal pain 07/30/2022 Assessment & Plan (05/14/2023 12:27 PM EDT): Continue to follow with specialist Assessment & Plan (03/18/2023 4:28 PM EST): I advise patient to avoid NSAIDs, spicy and acid food, I advise to eat at the same time every day, I advise to elevate the head of the bed and take medications as prescribe Varicose veins of both lower extremities 023 Cervicalgia 07/30/2022 Assessment & Plan (10/07/2023 12:32 PM EDT): C/w PRN acetaminophen and flexeril Diclofenac gel prescribed today Appl heat on affected are Chronic left shoulder pain 07/30/2022 Assessment & Plan (10/07/2023 12:33 PM EDT): As above Chronic low back pain 07/30/2022 Chronic otitis media 05/22/2022 Onychomycosis 05/22/2022 Assessment & Plan (09/16/2023 1:28 PM EDT): Labs will be check first then possible prescription terbinafine Chronic otitis externa of left ear 03/21/2022 Mood disorder 03/21/2022 Palpitations 03/21/2022 Assessment & Plan (05/14/2023 12:27 PM EDT): Continue to follow with cardiology Right lower quadrant pain 03/21/2022 Shoulder pain 03/21/2022 Skin tag 03/21/2022 Renal mass 03/21/2022 Type 2 diabetes mellitus wit h hyperglycemia, without long-term current use of insulin 02/03/2022 Assessment & Plan (11/26/2023 12:32 PM EDT): Now that she started wegovy I will go down on her glipizide to 2.5mg daily C/w rest he her medications Assessment & Plan (10/07/2023 12:34 PM EDT): Diabetes is: almost at goal - Lab Results Component Value Date HGBA1C 7.0 (A) 09/16/2023 HGBA1C 8.2 (A) 05/15/2023 HGBA1C 7.4 (H) 01/22/2023 - Lab Results Component Value Date MICROALBUR 0.9 02/04/2021 CREATININE 0.55 09/16/2023 -Changes: PA for ozempic was denied I will try wegovy for weight loss and to help get patient to goal A1c - Diabetic eye exam:up to date - Diabetic foot exam:up to date - Continue lifestyle modifications - Continue current medications - Follow up: 3 months Assessment & Plan (09/16/2023 1:31 PM EDT): Diabetes is: almost at goal - Lab Results Component Value Date HGBA1C 7.0 (A) 09/16/2023 HGBA1C 8.2 (A) 05/15/2023 HGBA1C 7.4 (H) 01/22/2023 - Lab Results Component Value Date MICROALBUR 0.9 02/04/2021 CREATININE 0.59 05/29/2023 -Changes: A1c goal is 6.5 I will add ozempic to reach goal - Diabetic eye exam:up to date - Diabetic foot exam:up to date - Continue lifestyle modifications - Continue current medications - Follow up: 3 months Assessment & Plan (05/15/2023 9:52 AM EDT): Diabetes is: not controlled - Lab Results Component Value Date HGBA1C 8.2 (A) 05/15/2023 HGBA1C 7.4 (H) 01/22/2023 HGBA1C 8.9 (A) 09/23/2022 - Lab Results Component Value Date MICROALBUR 0.9 02/04/2021 CREATININE 0.63 01/22/2023 -Changes: c/w glipizide and metfromin I will go up on invokana - Diabetic eye exam:up to date - Diabetic foot exam:up to date - Continue lifestyle modifications - Follow up: 3 months Assessment & Plan (03/18/2023 4:30 PM EST): - Lab Results Component Value Date HGBA1C 7.4 (H) 01/22/2023 HGBA1C 8.9 (A) 09/23/2022 HGBA1C 6.9 (A) 05/22/2022 - Lab Results Component Value Date MICROALBUR 0.9 02/04/2021 CREATININE 0.63 01/22/2023 - - Diabetic eye exam:up to date - Diabetic foot exam:up to date - Continue lifestyle modifications - Continue current medications - Assessment & Plan (01/27/2023 1:10 PM EST): Patient already on several medications for diabetes, A1c not at goal, it is my medical opinion patient will benefit form semaglutide Assessment & Plan (09/24/2022 2:37 PM EDT): - Lab Results Component Value Date HGBA1C 8.9 (A) 09/23/2022 HGBA1C 6.9 (A) 05/22/2022 HGBA1C 6.5 (A) 02/03/2022 - Lab Results Component Value Date MICROALBUR 0.9 02/04/2021 CREATININE 0.57 07/27/2022 - - Diabetic eye exam: up to date - Diabetic foot exam: podiatry referral done today - Continue lifestyle modifications - Patient declines today to do changes on her medications, reports she knows its because of her diet, she will like to correct her diet and if her A1c continue to be this high on net appointment she is willing to do changes on her meds Assessment & Plan (05/22/2022 11:31 AM EDT): - Lab Results Component Value Date HGBA1C 6.5 (A) 02/03/2022 HGBA1C 9.1 (H) 10/09/2021 HGBA1C 9.9 (H) 10/03/2020 - Lab Results Component Value Date MICROALBUR 0.9 02/04/2021 CREATININE 0.66 03/11/2022 - - Diabetic eye exam: pending next appointment - Diabetic foot exam:pending next appointment - Continue lifestyle modifications - Continue current medications Assessment & Plan (02/03/2022 9:12 PM EST): A1c is significantly improved. Continue Glipizide, metformin and Invokana Fu w PCP in 3m Foot examination done, recommend against pedicures Patient to fu with eye clinic for appt. Encounter for preventive health examination 01/16 Assessment & Plan (10/07/2023 12:34 PM EDT): See HPI Assessment & Plan (09/24/2022 2:34 PM EDT): Please refer to HPI Assessment & Plan (02/03/2022 9:16 PM EST): Patient is encouraged to exercise moderately 4-5x/week. Counseled to increase consumption of fresh fruit, veggies and water. To have frequent and small meals. I have discussed re having protected sex at all times for STI purposes. Pat does not smoke, uses alcohol or any illicit drugs, seems to feel safe at home PAP smear Adult IZs: Declined Flu vax today. Counseled re covid booster. Order Varicella and MMR titers. Td up to date, next one due on 2030. Hep B up to date, next titers to be checked on 2028 Colonoscopy pending 2022, seen by GI Mammogram: to be ordered, needs special accomodation or Right shoulder Ophthalmology: Will send a message to eye clinic to call with an appt, referral in place Labs: Up to date by PCP. Dental visit: Appt to be scheduled by patient Bunion of right foot 02/03/2022 Fibromyalgia 02/03/2022 Assessment & Plan (03/18/2023 4:29 PM EST): Patient was educated about multidisciplinary approach for her condition, it was advise cardiovascular exercise, maintain hydration, treat anxiety/depression and take medications as directed Assessment & Plan (05/22/2022 11:30 AM EDT): Patient was educated about multidisciplinary approach for her condition, it was advise cardiovascular exercise, maintain hydration, treat anxiety/depression and take medications as directed Renal cyst 02/03/2022 Mild persistent asthma without complication 01/16 Shoulder injury related to vaccine administratio n (SIRVA) 02/03/2022 Varicose veins of lower extremity 02/03/2022 Neck pain 12/25/2021 Assessment & Plan (03/08/2024 12:22 PM EST): Apply heat on affected area Acetaminophen PRN Baclofen Q 8hrs(patient is aware of side effect somnolence, she knows she can not drive while on this medication) Dislocation of symphysis pubis 12/25/2016 Fracture of pelvis 12/25/2016 Genital herpes simplex 12/25/2016 Encounters Date Type Department Care Team Description 03/14/2024 1:30 PM EST Office Visit [facility] [address] 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 screening completed on 09/16/2023) 02/22/2024 Refill [facility] [address] [place] [address] Winsome Glass MD Type 2 diabetes mellitus without complication, without long-term current use of insulin (CMS/HCC) 02/15/2024 Orders Only [facility] [address] [place] [address] Winsome Glass MD 02/12/2024 Refill [facility] [address] [place] [address] Winsome Glass MD 01/29/2024 Orders Only [facility] [address] [place] [address] Winsome Glass MD Type 2 diabetes mellitus with hyperglycemia, without long-term current use of insulin (CMS/HCC) (Primary Dx) 01/29/2024 Telephone [facility] [address] [place] [phone] Yudelka Núñez, RN Invokana medication 01/29/2024 Telephone [facility] [address] [place] [phone] Winsome Glass MD Med Refill 01/25/2024 Refill [facility] [address] [place] [phone] Isabella Whaley, DayronD 01/22/2024 Telephone [facility] [address] [place] [phone] Toña Vines, FRANSISCO Med Refill (Wegovy notification) 01/12/2024 Orders Only [facility] [address] [place] [phone] Winsome Glass MD Class 1 obesity due to excess calories with serious comorbidity and body mass index (BMI) of 34.0 to 34.9 in adult (Primary Dx) 01/12/2024 Refill [facility] [address] [place] [phone] Winsome Glass MD Fibromyalgia 01/12/2024 Telephone [facility] [address] [place] [address] [phone] Winsome Glass MD Medication Question from Last 3 Months Immunizations Name Administration Dates Next Due Hep B, adult 06/25/2018,01/25/2018,12/24/2017 Influenza injectable quadriv alent IIV4 with preservative 12/24/2017,02/04/2017 Influenza injectable quadriv alent preservative free 02/03/2022,01/22/2021,11/24/2018 Pfizer Covid-19 Vaccine 12+ mario-sucrose (Ridley Cap) 04/29/2021 Pneumococcal Conjugate PCV 20 10/05/2023 Tdap 01/22/2021 Social History Tobacco Use Types Packs/Day Years Used Date Smoking Tobacco: Never Passive Smoke Exposure: Never Smokeless Tobacco: Never Tobacco Cessation:Counseling Given: Not Answered Alcohol Use Standard Drinks/Week Comments Yes 0 [...] Orientation Straight 12/16/2021 10 :18 AM EDT Last Filed Vital Signs Vital Sign Reading Time Taken Comments Blood Pressure 118/74 03/04/2024 3:31 PM EST Pulse 72 03/04/2024 3:31 PM EST Temperature 36.1 ??C (96.9 ??F) 03/04/2024 3:31 PM ES T Respiratory Rate 18 03/04/2024 3:31 PM EST Oxygen Saturation 98% 10/05/2023 2:01 PM EDT Inhaled Oxygen Concentration - - Weight 74.9 kg (165 lb 2 oz) 03/04/2024 3:31 PM EST Height 154.9 cm (5' 1 ) 03/04/2024 3:31 PM EST Body Mass Index 31.2 03/04/2024 3:31 PM EST Plan of Treatment Upcoming Encounters Date Type Department Care Team (Late st Contact Info) Description 06/13/2024 11:00 AM EDT Office Visit [facility] [address] [place] [address] Winsome Glass MD [address] [place], [place] [phone] Health Maintenance Due Date Last Done Comments CT Colonography 1970 Colonoscopy 1970 FIT 1970 FOBT 1970 Sigmoidoscopy 1970 Pap Smear 06/28/1991 Cervical Cancer Screening 2000 HPV/Cotest 2000 Mammogram 01/27/2019 01/27/2017, 01/27/2017 Zoster Vaccines (1 of 2) 2020 Dental Oral Exam 08/07/2020 02/06/2020, 02/2018, 10/08/2017 Dental Prophylaxis 08/24/2020 02/24/2020, 0 11/10/2018, 05/10/2018 Diabetes: Foot Exam 02/03/2023 02/03/2022, 02/03/2022, 02/03/2022, Additional history exists Diabetes: Urine Protein Screening 06/04/2023 06/03/2022, 02/04/2021, 02/08/2020 Dental X-Ray: Bitewings 07/04/2023 07/03/19, 02/06/2020, 11/10/2018, Additional history exists COVID-19 Vaccine ( season) 2023 08/27/2021, 04/29/2021, 03/07/2021 Influenza Vaccine (#1) 2023 2, 01/22/2021, 11/24/2018, Additional history exists Dental X-Ray: Full Mouth 01/23/2024 021, 02/24/2020, 10/08/2017 Depression Monitoring (PHQ-9) 03/18/2024 09/16/2023, 09/16/2023 Diabetes: Hemoglobin A1C 09/01/2024 025, 09/16/2023, 05/15/2023, Additional history exists Alcohol/Substance Use Screening 09/15/2024 09/16/2023 Depression Screening 09/15/2024 09/16/2023, 09/16/19 24 Lipid Panel 09/15/2024 09/16/2023, 08/2022, 06/03/2022, Additional history exists SDOH Screening 09/15/2024 09/16/2023 Tobacco Screening 10/04/2024 10/05/2023 Colorectal Cancer Screening 10/05/2025 FIT DNA/Cologuard 10/05/2025 10/05/2022 Eye Exam 03/14/2026 03/14/2024, 02/17, 03/14/2024, Additional history exists DTaP/Tdap/Td Vaccines (2 - Td or Tdap) 01/22/2031 01/22/2021 RSV Patients and Patients Aged 60 years or older (1 - 1-dose 75+ series) 2045 Hepatitis B Vaccines Completed 06/25/2018, 01/25/2018, 12/24/2017 Hepatitis C Screening Completed 07/31/2021 HIV Screening Completed 06/03/2022, 07/31/2021 Pneumococcal Vaccine: 50+ Years Completed 10/05/2023 HIB Vaccines Aged Out No longer eligi [...] patient's age to complete this topic Meningococcal Vaccine Aged Out No zoe lakesha eligible based on patient's age to complete this topic RSV under 20 months Aged Out No longe r eligible based on patient's age to complete this topic Rotavirus Vaccines Aged Out No longer eligible based on patient's age to complete this topic Procedures Procedure Name Priority Date/Time Associated Diagnosis Comments POCT GLYCATED HEMOGLOBIN, TOTAL Routine 03/04/2024 3:38 PM EST Type 2 diabetes mellitus without complication, without long-term current use of insulin (CMS/HCC) POCT GLUCOSE Routine 03/04/2024 3:35 PM EST Type 2 diabetes mellitus without complication, without long-term current use of insulin (CMS/HCC) LIPID PANEL WITH REFLEX TO DIRECT LDL Routine 09/16/2023 12:00 AM EDT Type 2 diabetes mellitus with hyperglycemia, without long-term current use of insulin (CMS/HCC) LAB COLOGUARD?? COLON CANCER SCREEN Routine 10/05/2022 10:15 PM EDT Colon cancer screening BITEWING - SINGLE RADIOGRAPHIC IMAGE Routine 07/02/2022 11:30 AM EDT Dental caries Acute pulpitis HIV 1/2 ANTIGEN/ANTIBODY, FOURTH GENERATION W/RFL Routine 06/03/2022 8:19 AM EDT Screening examination for venereal disease ALBUMIN, RANDOM URINE W/O CREATININE Routine 06/03/2022 8:17 AM EDT Type 2 diabetes mellitus without complication, without long-term current use of insulin (CMS/HCC) ZZZ HISTORICAL HEPATITIS C AB W/REFL TO HCV RNA, QN, PCR Routine 07/31/2021 4:19 PM EDT PANORAMIC RADIOGRAPHIC IMAGE Routine 01/21/2021 12:00 AM EST PROPHYLAXIS - ADULT Routine 02/24/2020 1 2:00 AM EST PERIODIC ORAL EVALUATION - ESTABLISHED PATIENT Routine 02/06/2020 12:00 AM EST BI MAMMOGRAM SCREENING BILATERAL Routine 01/27/2017 8:02 AM EST from Last 3 Months or Most Recently Relevant to Health Maintenance Results * (ABNORMAL) POCT HGB A1C (03/04/2024 3:38 PM EST) Hemoglobin A1C 6.1(A) 4.0 - 6.0 % QC Media Lot # [id number] Lot# Expiration Date Blood 03/04/2024 3:38 PM EST Winsome Davis MD POINT OF CARE TEST EN TER/EDIT ORDERABLES Final Result * POCT Glucose (03/04/2024 3:35 PM EST) Glucose Blood, POC 142 60 - 200 mg/dL QC Media Lot # [id number] Lot# Expiration Date ,025 Blood Capillary blood specimen / Unknown 03/04/2024 3:35 PM EST Winsome Davis MD POINT OF CARE TEST EN TER/EDIT ORDERABLES Final Result * Lipid Panel with Reflex to Direct LDL (09/16/2023 12:00 AM EDT) Triglycerides 58 <150 mg/dL [facility] Comment:Desirable Triglyceri de: less than 150 mg/dLBorderline High Triglyceride 150-199 mg/dLHigh Triglyceride: 200-499 mg/dLVery High Triglyceride: greater than or equal to 5OO mg/dL Cholesterol 142 <200 mg/dL [facility] Comment:Desirable Cholestero l: less than 200 mg/dLBorderline High Cholesterol: 200-239 mg/dLHigh Cholesterol: greater than 239 mg/dL LDL Cholesterol Calculated 86 <100 mg/dL [facility] Comment:Desirable LDL: less than 100 mg/dLNear Optimal/Above Optimal LDL: 110- 129 mg/dLBorderline High LDL: 130-159 mg/dLHigh LDL: 160-189 mg/dLVery High LDL: greater than or equal to 190 mg/dL HDL Cholesterol 45 >40 mg/dL [facility] Comment:Desirable HDL: great er than 40 mg/dL Note: This HDL assay may give artificially low results in patients with liver disease. Blood 09/16/2023 09/16/2023 Winsome Davis MD LAB BLOOD ORDERABLES Final Result [facility] [address] [place], [place] [phone] * Cologuard?? colon cancer screening (10/05/2022 10:15 PM EDT) Cologuard Result Negative Negative 10/12/19 4:43 AM EDT [facility] (CLIA #:[id number]) Comment: NEGATIVE TEST RESULT. A negative Cologuard result indicates a low likelihood that a colorectal cancer (CRC) or advanced adenoma (adenomatous polyps with more advanced pre-malignant features) ??is present. The chance that a person with a negative Cologuard test has a colorectal cancer is less than 1 in 1500 (negative predictive value >99.9%) or has an ??advanced adenoma is less than ??5.3% (negative predictive value 94.7%). These data are based on a prospective cross-sectional study of 10,000 individuals at average risk for colorectal cancer who were screened with both Cologuard and colonoscopy. (Baldomero T. et al, N Engl J Med 2014;370(14):1286- 1297) The normal value (reference range) for this assay is negative. COLOGUARD RE-SCREENING RECOMMENDATION: Periodic colorectal cancer screening is an important part of preventive healthcare for asymptomatic individuals at average risk for colorectal cancer. ??Following a negative Cologuard result, the [place] [employer] Society and U.S. Multi-Society Task Force screening guidelines recommend a Cologuard re-screening interval of 3 years. References: [place] [employer] Guideline for Colorectal Cancer Screening: https://www.cancer.org/cancer/lsxnj-jfbqrw-knzszq/tjyqxrcqr-kctuhcvmq-fpcnssb/ac s-rec ommendations.html.; Timmy VICK, Cesar LUND, Jenny DoddK, Colorectal Cancer Screening: Recommendations for Physicians and Patients from the U.S. Multi-Society Task Force on Colorectal Cancer Screening , Am J Gastroenterology 2017; 112:8510-1978. TEST DESCRIPTION: Composite algorithmic analysis of stool DNA-biomarkers with hemoglobin immunoassay. ?? Quantitative values of individual biomarkers are not reportable and are not associated with individual biomarker result reference ranges. Cologuard is intended for colorectal cancer screening of adults of either sex, 45 years or older, who are at average-risk for colorectal cancer (CRC). Cologuard has been approved for use by the U.S. FDA. The performance of Cologuard was established in a cross sectional study of average-risk adults aged 50-84. Cologuard performance in patients ages 45 to 49 years was estimated by sub-group analysis of near-age groups. Colonoscopies performed for a positive result may find as the most clinically significant lesion: colorectal cancer [4.0%], advanced adenoma (including sessile serrated polyps greater than or equal to 1cm diameter) [20%] or non- advanced adenoma [31%]; or no colorectal neoplasia [45%]. These estimates are derived from a prospective cross-sectional screening study of 10,000 individuals at average risk for colorectal cancer who were screened with both Cologuard and colonoscopy. (Baldomero Marie. et al, N Engl J Med 2014;370(14):9553-1290.) Cologuard may produce a false negative or false positive result (no colorectal cancer or precancerous polyp present at colonoscopy follow up). A negative Cologuard test result does not guarantee the absence of CRC or advanced adenoma (pre-cancer). The current Cologuard screening interval is every 3 years. ([place] [employer] Society and U.S. Multi-Society Task Force). Cologuard performance data in a 10,000 patient pivotal study using colonoscopy as the reference method can be accessed at the following location: [email or web address]. Additional description of the Cologuard test process, warnings and precautions can be found at [email or web address]. Stool specimen (specimen) 10/05/2022 10:15 PM EDT 10/07/2022 9:28 PM EDT Winsome Davis MD LAB MOLECULAR DIAGNOS TICS ORDERABLES Final Result [facility] (CLIA #:[id number]) [place] [address] [place] [address], * HIV-1/2 Antigen and Antibodies, Fourth Generation, with Reflexes (06/03/2022 8:19 AM EDT) HIV Antigen/Antibody, 4th Generation NON-REAC TIVE NON-REAC TIVE [facility] [place] [facility] Comment: HIV-1 antigen and HIV-1/HIV-2 antibodies were not detected. There is no laboratory evidence of HIV infection. PLEASE NOTE: This information has been disclosed to you from records whose confidentiality may be protected by state law. ??If your state requires such protection, then the state law prohibits you from making any further disclosure of the information without the specific written consent of the person to whom it pertains, or as otherwise permitted by law. A general authorization for the release of medical or other information is NOT sufficient for this purpose. ?? For additional information please refer to http://education.Fluidnet/faq/DWJ286 (This link is being provided for informational/ educational purposes only.) The performance of this assay has not been clinically validated in patients less than 2 years old. Blood Venous blood specimen / Unknown 06/03/2022 8:19 AM EDT 06/03/2022 8:19 AM EDT Narrative [facility] - 06/04/2022 4:07 PM EDT FASTING:YES FASTING: YES Jovita Kate [facility] LAB BLOOD ORDERABLES Viy l Result [facility] [address], [place] [address] [facility] [place] [facility] [address] [place] [address] * Albumin, Random Urine W/O Creatinine (06/03/2022 8:17 AM EDT) Pathologist [facility] Albumin, Urine 0.9 See Note: mg/dL [facility] [place] [facility] Comment: Reference Range: Reference Range Not established [facility] [place] [facility] Comment: The ADA defines abnormalities in albumin excretion as follows: Albuminuria Category ? Result (mcg/mg creatinine) Normal to Mildly increased ?<30 Moderately increased ?30-299 Severely increased ?> OR = 300 The ADA recommends that at least two of three specimens collected within a 3-6 month period be abnormal before considering a patient to be within a diagnostic category. Urine Urine specimen obtained by clean catch procedure / Unknown 06/03/2022 8:17 AM EDT 06/03/2022 8:18 AM EDT Narrative [facility] - 06/03/2022 10:43 PM EDT FASTING:YES FASTING: YES us Winsome Davis MD LAB URINE ORDERABLES Final Result Performing Organization Address [facility] de Phone Number [facility] [address], [place] [address] [facility] [address] [place] [address] * HEPATITIS C AB W/REFL TO HCV RNA, QN, PCR (07/31/2021 4:19 PM EDT) HEPATITIS C ANTIBODY NON-REACT [facility] NON-REACT [facility] INDEX 0.07 <1.00 [facility] Comment: ?? HCV antibody was non-reactive. There is no laboratory ?? evidence of HCV infection. ?? In most cases, no further action is required. However, if recent HCV exposure is suspected, a test for HCV RNA (test code 64735) is suggested. ?? For additional information please refer to http://education.Fluidnet/faq/CSK40l7 (This link is being provided for informational/ educational purposes only.) ?? 07/31/2021 4:19 PM EDT us Jovita Kate CNM HISTORICAL/NON ORDERABLE LABS Final Result Performing Organization Address [facility] de Phone Number [facility] [address] [place] [address], * DIGITAL BILATERAL SCREEN 1 (01/27/2017 8:02 AM EST) Anatomical Region Laterality Modality Breast Bilateral Mammography 01/27/2017 8:02 AM EST Narrative 01/28/2017 2:42 PM EST Refer to the Notes tab for result details [facility] Procedure: DIGITAL BILATERAL SCREEN 1 Procedure Note Provider, Alexa, - 05/10/2022 Refer to the Notes tab for result details Legacy Procedure: DIGITAL BILATERAL SCREEN 1 Historical Provider MD PEREZ BI PROCEDURES Final R esult from Last 3 Months or Most Recently Relevant to Health Maintenance Insurance [facility] STANDARD DENTAL-[facility] MEDICAID STAND ADULT Care Teams Mastic Floor Layer Relationship Specialty Start Date End Date Winsome Glass MD [address] [place] [id number] PCP - General Family Medicine 09/27/19 Lakesha Livingston Graduate Civil EngineerJewel Sawyer 07/27/23
--- OUTSIDE RECORDS SUMMARY | 2024-03-18 12:45 | XMS_ITS | Encounter Summary ---
Author Organization [employer] Address [address] [place] [address] Care Team Providers Care Newspaper Subscription Solicitor Name Role Phone Winsome Glass MD Primary Care Provide r Encounter Details Date Type Department Care Team (Late st Contact Info) Description 03/14/2024 1:30 PM EST Office Visit [facility] OPTOMETRY [address] [place] [address] Jerome, Namita, OD [address] [place] [address] Diabetes type 2, no ocular involvement (CMS/HCC) (Primary Dx); Meibomian gland dysfunction; Choroidal nevus of left eye; 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; Presbyopia Social History Tobacco Use Types Packs/Day Years [...] Upcoming Encounters Date Type Department Care Team ([facility] st Contact Info) Description 06/13/2024 11:00 AM EDT Office Visit [facility] MEDICINE [address] [place] [phone] Winsome Glass MD [address] [place] [address] Pending Results Name Type Priority Associated Diagnoses Date /Time Fundus Photos - OU - Both Eyes Ophthalmology Routine Choroidal nevus of left eye 03/14/2024 4:35 PM EST documented as of this encounter Visit Diagnoses Diagnosis Diabetes type 2, no ocular involvement (CMS/HCC)- Primary Meibomian gland dysfunction Other disorders of eyelid 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
--- OUTSIDE RECORDS SUMMARY | 2024-03-18 12:45 | XMS_ITS | Encounter Summary ---
Author Organization [employer] Address [address] [place] [address] Care Team Providers Care Drawer In Name Role Phone Winsome Glass MD Primary Care Provide r Encounter Details Date Type Department Care Team (Latest Contact Info) Description 03/14/2024 Travel Social History Tobacco Use Types Packs/Day [...] 06/13/2024 11:00 AM EDT Office [facility] MEDICINE [address] [place] [address] Winsome Glass MD [address] [place] [address] documented as of this encounter Visit Diagnoses Not on filedocumented in this encounter Additional Health Concerns Assessment Noted Time PHQ-9 Depression Total Score: 11 024 2:31 PM EDT documented as of this encounter Care Teams Drawer In Relationship Specialty Start Date End Date Winsome Glass MD [address] [place] [address] PCP - General Family Medicine 09/27/19 Lakesha Livingston Refining Equipment OperatorProgram Support Specialist 07/27/23 documented as of this encounter
--- OUTSIDE RECORDS SUMMARY | 2024-03-18 12:45 | XMS_ITS | Encounter Summary ---
Author Organization [employer] Address [address] [facility] 7t [place] [address] Care Team Providers Care Electrical Supervisor Name Role Phone Winsome Glass MD Primary Care Provide r Reason for Visit * Reason Onset Date Comments Referral 10/09/2022 Encounter Details Date Type Department Care Team (Late st Contact Info) Description 10/09/2022 Telephone [facility] MEDICINE [address] [place] [address] Winsome Glass MD [address] [place] [address] Referral Social History Tobacco Use Types Packs/Day [...] encounter Miscellaneous Notes * Telephone Encounter - Darling Marcos - 10/09/2022 4:54 PM EDT Tc from pt requesting for referral for weight management to fax over to [facility] due to facility not receiving it. Bioinformatics Developer advised is going to be faxed over to please call facility and verify if received, if not received to please obtain correct fax number. documented in this encounter Plan of Treatment Upcoming Encounters Date Type Department Care Team (Late st Contact Info) Description 06/13/2024 11:00 AM EDT Office Visit [facility] MEDICINE [address] [place] [address] Winsome Glass MD [address] [place] [address] documented as of this encounter Visit Diagnoses Not on filedocumented in this encounter Additional Health Concerns Assessment Noted Time PHQ-9 Depression Total Score: 9 05/23/19 23 10:50 AM EDT documented as of this encounter Care Teams Electrical Supervisor Relationship Specialty Start Date End Date Winsome Glass MD [address] [place] [address] PCP - General Family Medicine 09/27/19 Lakesha Livingston Mixing Machine TenderCoil Machine Supervisor 07/27/23 documented as of this encounter
--- OUTSIDE RECORDS SUMMARY | 2024-03-18 12:45 | XMS_ITS | Encounter Summary ---
Author Organization [employer] Address [address] [facility] 7t [place] [address] Care Team Providers Care Kerfer Machine Operator Name Role Phone Winsome Glass MD Primary Care Provide r Reason for Visit * Reason Comments Med Refill Encounter Details Date Type Department Care Team (Late st Contact Info) Description 02/22/2024 Refill [facility] MEDICINE [address] [place] [address] Winsome Glass MD [address] [place] [address] Type 2 diabetes mellitus without complication, without long-term current use of insulin ([facility]) Social History Tobacco Use Types Packs/Day Years [...] Upcoming Encounters Date Type Department Care Team ([facility] Contact [facility] Description 06/13/2024 11:00 AM EDT Office Visit [facility] MEDICINE [address] [place] [phone] Winsome Glass MD [address] [place] [address] documented as of this encounter Visit Diagnoses Diagnosis Type 2 diabetes mellitus without complication, without long-term current use of insulin ([facility]) documented in this encounter Additional Health Concerns Assessment Noted Time PHQ-9 Depression Total Score: 11 024 2:31 PM EDT documented as of this encounter Care Teams Kerfer Machine Operator Relationship Specialty Start Date End Date Winsome Glass MD [address] [place] [phone] PCP - General Family Medicine 09/27/19 Lakesha Livingston Vehicle Body BuilderSeed Mill Superintendent 07/27/23 documented as of this encounter
--- OUTSIDE RECORDS SUMMARY | 2024-03-18 12:45 | XMS_ITS | Encounter Summary ---
Author Organization [employer] Address [address] [facility] 7t [place] [address] Care Team Providers Care Welfare Visitor Name Role Phone Winsome Glass MD Primary Care Provide r Reason for Visit * Reason Comments Med Refill Encounter Details Date Type Department Care Team (Late st Contact Info) Description 08/14/[address] [facility] MEDICINE [address] [place] [address] Angela Jolley, ANA [address] [place] [address] Type 2 diabetes mellitus without complication, without long-term current use of insulin ([facility]) Social History Tobacco Use Types Packs/Day [...] Description 06/13/2024 11:00 AM EDT Office Visit [facility] MEDICINE [address] [place] [address] Winsome Glass MD [address] [place] [address] documented as of this encounter Visit Diagnoses Diagnosis Type 2 diabetes mellitus without complication, without long-term current use of insulin ([facility]) documented in this encounter Additional Health Concerns Assessment Noted Time PHQ-9 Depression Total Score: 9 05/23/19 23 10:50 AM EDT documented as of this encounter Care Teams Welfare Visitor Relationship Specialty Start Date End Date Winsome Glass MD [address] [place] [address] PCP - General Family Medicine 09/27/19 Lakesha Livingston Barrel BuilderIndustrial Electrical Technician 07/27/23 documented as of this encounter
--- OUTSIDE RECORDS SUMMARY | 2024-03-18 12:45 | XMS_ITS | Encounter Summary ---
Author Organization [employer] Address [address] [facility] [address]t [place] [address] Care Team Providers Care Product Marketing Director Name Role Phone Winsome Glass MD Primary Care Provide r Reason for Visit * Reason Comments Pre-visit Planning SDOH screening compl eted on 09/16/2023 Encounter Details Date Type Department Care Team (Late st Contact Info) Description 02/24/2024 Patient Outreach [facility] MEDICINE [address] [place] [address] Winsome Glass MD [address] [place] [address] Pre-visit Planning (SDOH screening completed on 09/16/2023) Social History Tobacco Use Types Packs/Day Years [...] AM EDT documented as of this encounter Progress Notes * Radha Hinton - 02/24/2024 9:15 AM EST CC Radha placed successful outbound call to patient for pre-visit planning. Patient name and confirmed. Patient confirms appt date and time, and has transportation. Biggest concern for appointment at this time is none Patient advised to bring to appointment a photo id and insurance card. Appropriate screenings completed in anticipation of appointment. documented in this encounter Plan of Treatment Upcoming Encounters Date Type Department Care Team (Late st Contact Info) Description 06/13/2024 11:00 AM EDT Office Visit [facility] MEDICINE [address] [place] [address] Winsome Glass MD [address] [place] [address] documented as of this encounter Visit Diagnoses Not on filedocumented in this encounter Additional Health Concerns Assessment Noted Time PHQ-9 Depression Total Score: 11 024 2:31 PM EDT documented as of this encounter Care Teams Product Marketing Director Relationship Specialty Start Date End Date Winsome Glass MD [address] [place] [address] PCP - General Family Medicine 09/27/19 Lakehsa Livingston Animal PhysiologistAdministrative Services Director 07/27/23 documented as of this encounter
--- OUTSIDE RECORDS SUMMARY | 2024-03-18 12:45 | XMS_ITS | Encounter Summary ---
Author Organization [employer] Address [address] [place] [address] Care Team Providers Care Associate Marketing Manager Name Role Phone Winsome Glass MD Primary Care Provide r Encounter Details Date Type Department Care Team (Late st Contact Info) Description 01/21/2023 Telephone [facility] MEDICINE [address] [place], [place] [phone] Winsome Glass MD [address] [place], [place] [phone] Social History Tobacco Use Types Packs/Day Years [...] Description 06/13/2024 11:00 AM EDT Office Visit [facility] MEDICINE [address] [place] [address] Winsome Glass MD [address] [place] [address] documented as of this encounter Visit Diagnoses Not on filedocumented in this encounter Additional Health Concerns Assessment Noted Time PHQ-9 Depression Total Score: 9 05/23/19 23 10:50 AM EDT documented as of this encounter Care Teams Associate Marketing Manager Relationship Specialty Start Date End Date Winsome Glass MD [address] [place] [address] PCP - General Family Medicine 09/27/19 Lakesha Livingston Hooker OperatorMechanical Piping Designer 07/27/23 documented as of this encounter
--- OUTSIDE RECORDS SUMMARY | 2024-03-18 12:45 | XMS_ITS | Encounter Summary ---
Author Organization [employer] Address [address] [facility] 7t [place] [address] Care Team Providers Care Psychologist Personnel Name Role Phone Winsome Glass MD Primary Care Provide r Reason for Visit * Reason Onset Date Comments Durable Medical Equipment 03/06/2022 Encounter Details Date Type Department Care Team (Late st Contact Info) Description 03/06/2022 Telephone [facility] MEDICINE [address] [place] [address] Winsome Glass MD [address] [place] [address] Durable Medical Equipment Social History Tobacco Use Types Packs/Day Years [...] encounter Miscellaneous Notes * Telephone Encounter - Natalya Anglin - 03/06/2022 2:18 PM EST Script for shower chair generated for signature * Telephone Encounter - Ivan Agudelo - 03/06/2022 1:57 PM EST Tc from pt requesting a new script fro a shower chair pt requesting to be a smaller chair due to the size of pt shower pt would like chair to send over to [facility] documented in this encounter Plan of Treatment Upcoming Encounters Date Type Department Care Team (Late st Contact Info) Description 06/13/2024 11:00 AM EDT Office Visit [facility] MEDICINE [address] [place], [place] [phone] Winsome Glass MD [address] [place], [place] [phone] documented as of this encounter Visit Diagnoses Not on filedocumented in this encounter Care Teams Psychologist Personnel Relationship Specialty Start Date End Date Winsome Glass MD [address] [place], [place] [phone] PCP - General Family Medicine 09/27/19 Lakesha Livingston LpcCable Former 07/27/23 documented as of this encounter
--- OUTSIDE RECORDS SUMMARY | 2024-03-18 12:45 | XMS_ITS | Encounter Summary ---
Author Organization [facility] [employer] [facility] Address [address] [place] [address] 7t [place] [address] Care Team Providers Care Salesperson Trailers And Motor Homes Name Role Phone Winsome Glass MD Primary Care Provide r Encounter Details Date Type Department Care Team (Latest Contact Info) Description 05/10/2018 Abstract [facility] CONVERSIONS Dental, Provider, DDS Social History Tobacco [...] Description 06/13/2024 11:00 AM EDT Office Visit [facility] MEDICINE [address] [place] [address] Winsome Glass MD [address] [place] [address] documented as of this encounter Visit Diagnoses Not on filedocumented in this encounter Care Teams Salesperson Trailers And Motor Homes Relationship Specialty Start Date End Date Winsome Glass MD [address] [place] [phone] PCP - General Family Medicine 09/27/19 Lakesha Livingston Cullet Crusher And WasherFirer Kiln 07/27/23 documented as of this encounter
== END 2024-03-18 12:17 | disposition home or self-care (01) ==
LOC: HO.HHCX 12:16
PROVIDERS: Visit Provider Internal Medicine
DX: M25.552 Pain in left hip (principal)
CPT/HCPCS: 73502

== ENCOUNTER → 2024-03-18 12:17 | Outpatient (BNV) | payer MEDICAID, SELFPAY | PROVIDERS: Visit Provider Radiology Diagnostic Radiology | DX: M25.552 Pain in left hip (principal) | CPT/HCPCS: 73502 ==

== ENCOUNTER 2024-05-30 14:02 | Outpatient (AMB) | payer MEDICAID, SELFPAY ==
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
[2024-05-30 14:37] VITALS: BP 124/66; PULSE 65; O2SAT 100; BMI 29.9
--- OUTSIDE RECORDS SUMMARY | 2024-05-30 16:20 | XMS_ITS | Encounter Summary ---
Author Organization [employer] Address [address] [facility] [address] [place] [address] Care Team Providers Care Retail Coverage Merchandiser Lead Name Role Phone Winsome Glass MD Primary Care Provide r Encounter Details Date Type Department Care Team ([facility] Contact Info) Description 04/25/2022 Telephone [facility] MEDICINE [address] [place] [address] [phone] Winsome Glass MD [address] [place] [address] [phone] Social History Tobacco Use Types Packs/Day Years [...] Upcoming Encounters Date Type Department Care Team ([facility] Contact Info) Description 06/13/2024 11:00 AM EDT Office Visit [facility] MEDICINE [address] [place] [address] [phone] Winsome Glass MD [address] [place] [address] [phone] documented as of this encounter Visit Diagnoses Not on filedocumented in this encounter Care Teams Retail Coverage Merchandiser Lead Relationship Specialty Start Date End Date Winsome Glass MD [address] [place] [address] PCP - General Family Medicine 09/27/19 Lakesha Livingston Drawer UpfitterBlacksmith Hammer Operator 07/27/23 documented as of this encounter
--- OUTSIDE RECORDS SUMMARY | 2024-05-30 16:20 | XMS_ITS | Encounter Summary ---
Author Organization [employer] Address [address] [facility] 7t [place] [address] Care Team Providers Care Real Estate Professional Name Role Phone Winsome Glass MD Primary Care Provide r Reason for Visit * Reason Onset Date Comments Nurse Triage 09/03/2023 Encounter Details Date Type Department Care Team ([facility] st Contact Info) Description 09/03/2023 Telephone [facility] MEDICINE [address] [place] [address] Winsome Glass MD [address] [place] [address] Nurse Triage Social History Tobacco Use Types [...] and no extended hours, can seek or [facility] tomorrow for exam .Reviewed [facility] operating hours and that wait times vary. Pt wants OV with PCP. Advised nothing before Physical Exam appt already booked for September. Pt advised can call for cancellations or make sure concerns are brought up during physical exam. Pt wants OV with PCP. Ptadvised will send to [place] to book OV if one is available as not able to book anything within 2 weeks and already has pending appt. Protocol Used: Nose Injury (Adult) Protocol-Based Disposition: See in Office or Video Visit Today Future Appointments Date Time Provider Department Center 10/05/2023 2:00 PM Winsome Davis MD MEDICINE [facility] Positive Triage Question: * Tip of nose [...] No answer LVM to return call to [facility] triage line [phone]. * Telephone Encounter - Darling Marcos - 09/03/2023 3:41 PM EDT Symptoms: Fall, Nose Pain Outcome: Schedule an urgent appointment (within 1 hour) or talk to a nurse or provider soon Reason: Severe pain now The caller accepted this outcome Please contact pt @ [phone] documented in this encounter Plan of Treatment Upcoming Encounters Date Type Department Care Team (Late st Contact Info) Description 06/13/2024 11:00 AM EDT Office Visit [facility] MEDICINE [address] [place] [phone] Winsome Glass MD [address] [place] [address] documented as of this encounter Visit Diagnoses Not on filedocumented in this encounter Additional Health Concerns Assessment Noted Time PHQ-9 Depression Total Score: 9 05/23/19 23 10:50 AM EDT documented as of this encounter Care Teams Real Estate Professional Relationship Specialty Start Date End Date Winsome Glass MD [address] [place], [place] [phone] PCP - General Family Medicine 09/27/19 Lakesha Livingston Supervisor DrawingCustomer Sales Specialist 07/27/23 documented as of this encounter
--- OUTSIDE RECORDS SUMMARY | 2024-05-30 16:20 | XMS_ITS | Encounter Summary ---
Author Organization [employer] Address [address] [place] [address] Care Team Providers Care Heating And Cooling Systems Engineer Name Role Phone Winsome Glass MD Primary Care Provide r Encounter Details Date Type Department Care Team (Late st Contact Info) Description 05/04/2024 Orders Only [facility] MEDICINE [address] [place], [place] [phone] Winsome Glass MD [address] [place] [address] Social History Tobacco Use Types Packs/Day Years [...] Description 06/13/2024 11:00 AM EDT Office Visit [facility] MEDICINE [address] [place] [address] Winsome Glass MD [address] [place] [address] documented as of this encounter Visit Diagnoses Not on filedocumented in this encounter Additional Health Concerns Assessment Noted Time PHQ-9 Depression Total Score: 11 024 2:31 PM EDT documented as of this encounter Care Teams Heating And Cooling Systems Engineer Relationship Specialty Start Date End Date Winsome Glass MD [address] [place] [address] PCP - General Family Medicine 09/27/19 Lakesha Livingston Rodent Control WorkerProgram Aide 07/27/23 documented as of this encounter
--- OUTSIDE RECORDS SUMMARY | 2024-05-30 16:20 | XMS_ITS | Encounter Summary ---
Author Organization [employer] Address [address] [place] [address] 7[address] [place] [address] Care Team Providers Care Ship Design Teacher Name Role Phone Winsome Glass MD Primary Care Provide r Reason for Visit * Reason Onset Date Comments Appointment 08/27/2022 Encounter Details Date Type Department Care Team ([facility] st Contact Info) Description 08/27/2022 Telephone [facility] ADULT DENTAL [address] [place] [address] Rolanda Avelar, DDS [address] [place] [address] Appointment Social History Tobacco Use Types Packs/Day [...] [facility] MEDICINE [address] [place] [address] Winsome Glass MD [address] [place] [address] documented as of this encounter Visit Diagnoses Not on filedocumented in this encounter Additional Health Concerns Assessment Noted Time PHQ-9 Depression Total Score: 9 05/23/19 23 10:50 AM EDT documented as of this encounter Care Teams Ship Design Teacher Relationship Specialty Start Date End Date Winsome Glass MD [address] [place] [phone] PCP - General Family Medicine 09/27/19 Lakesha Livingston Bailer Operators SupervisorLab Aid 07/27/23 documented as of this encounter
--- OUTSIDE RECORDS SUMMARY | 2024-05-30 16:20 | XMS_ITS | Encounter Summary ---
Author Organization [employer] [facility] Address [address] [place] [address] 7t [place] [address] Care Team Providers Care Hvac Design Engineer Name Role Phone Winsome Glass MD Primary Care Provide r Encounter Details Date Type Department Care Team (Latest Contact Info) Description 05/10/2018 Abstract [facility] CONVERSIONS Dental, Provider, DDS Social History Tobacco [...] 11:00 AM EDT Office Visit [facility] MEDICINE [address] [place] [address] Winsome Glass MD [address] [place] [address] documented as of this encounter Visit Diagnoses Not on filedocumented in this encounter Care Teams Hvac Design Engineer Relationship Specialty Start Date End Date Winsome Glass MD [address] [place] [address] [phone] PCP - General Family Medicine 09/27/19 Lakesha Livingston Filling And Packing SupervisorClay Pigeon Loader 07/27/23 documented as of this encounter
--- OUTSIDE RECORDS SUMMARY | 2024-05-30 16:20 | XMS_ITS | Encounter Summary ---
Author Organization [employer] Address [address] [facility] [address] [place] [address] Care Team Providers Care Pediatrics Physician Name Role Phone Winsome Glass MD Primary Care Provide r Reason for Visit * Reason Onset Date Comments Referral 10/09/2022 Encounter Details Date Type Department Care Team (Late st Contact Info) Description 10/09/2022 Telephone [facility] MEDICINE [address] [place] [address] Winsome Glass MD [address] [place] [address] Referral Social History Tobacco Use Types Packs/Day [...] [facility] due to facility not receiving it. Web Operations Specialist advised is going to be faxed over to please call facility and verify if received, if not received to please obtain correct fax number. documented in this encounter Plan of Treatment Upcoming Encounters Date Type Department Care Team (Late st Contact Info) Description 06/13/2024 11:00 AM EDT Office Visit [facility] MEDICINE [address] [place] [address] Winsome Glass MD [address] [place] [address] documented as of this encounter Visit Diagnoses Not on filedocumented in this encounter Additional Health Concerns Assessment Noted Time PHQ-9 Depression Total Score: 9 05/23/19 23 10:50 AM EDT documented as of this encounter Care Teams Pediatrics Physician Relationship Specialty Start Date End Date Winsome Glass MD [address] [place] [address] PCP - General Family Medicine 09/27/19 Lakesha Livingston Rubber AttacherMillwright Apprentice 07/27/23 documented as of this encounter
--- OUTSIDE RECORDS SUMMARY | 2024-05-30 16:20 | XMS_ITS | Encounter Summary ---
Author Organization [employer] Address [address] [facility] [address] [place] [address] Care Team Providers Care Steaming Machine Operator Name Role Phone Winsome Glass MD Primary Care Provide r Encounter Details Date Type Department Care Team (Late st Contact Info) Description 01/27/2023 Orders Only [facility] [address] [place], [place] [phone] Porter Puga MD [address] [place] [address] Social History Tobacco Use Types Packs/Day Years [...] 06/13/2024 11:00 AM EDT Office Visit [facility] [address] [place] [address] Winsome Glass MD [address] [place] [address] documented as of this encounter Procedures Procedure Name Priority Date/Time Associated Diagnosis Comments FL UPPER GI W AIR Routine 02/25/2023 8:4 6 AM EST documented in this encounter Results * FL upper GI w air (02/25/2023 8:46 AM EST) Anatomical Region Laterality Modality Body Radiographic Fani ging 02/25/2023 8:46 AM EST Narrative 02/25/2023 4:33 PM EST ? [facility] ?[address] ?[place] [address] ? Fluoroscopy Report ? Signed ? Patient: Amparo Malcolm,Rivka ?MR#: ?? [id number] ? : 1970 ?Acct:[id number] ? Age/Sex: 52 / F ?ADM Date: 01/10/24 ? Loc: HO.XRAY ? Attending Dr: Hannah TUTTLE ? Ordering Physician: Hannah Zapata ?? Date of Service: 02/25/23 ?? Procedure(s): FL upper GI w air ?? Accession Number(s): [id number] ? cc: Winsome Glass MD; Hannah Zapata [...] 1628 ? DD/ 0846 ? TD/TT: ? Education Analyst: ? Procedure Note [facility] - 02/25/[address] [address] Fluoroscopy Report Signed Patient: Cassandra Green#: [id number] : 1970Acct:[id number] Age/Sex: 52 / FADM Date: 02/25/23 Loc: HO.XRAY Attending Dr: Hannah TUTTLE Ordering Physician: Hannah Zapata Date of Service: 02/25/23 Procedure(s): FL upper GI w air Accession Number(s): [id number] cc: Winsome Glass MD; Hannah Zapata EXAMINATION: [...] in OV> 02/25/23 1628 DD/ 0846 TD/TT: Education Analyst: [facility] External Provider IMG FLU OROSCOPY PROCEDURES Final Result documented in this encounter Visit Diagnoses Not on filedocumented in this encounter Additional Health Concerns Assessment Noted Time PHQ-9 Depression Total Score: 9 05/23/19 23 10:50 AM EDT documented as of this encounter Care Teams Steaming Machine Operator Relationship Specialty Start Date End Date Wisnome Glass MD [address] [place] [id number] PCP - General Family Medicine 09/27/19 Lakesha Livingston Freight Delivery DriverCertified Alcohol And Drug Counselor 07/27/23 documented as of this encounter
--- OUTSIDE RECORDS SUMMARY | 2024-05-30 16:20 | XMS_ITS | Clinical Summary ---
Author Organization [employer] Address [address] [place] [address] [address] [place] [address] Care Team Providers Care Regulatory Technician Name Role Phone Winsome Glass MD Primary Care Provide r Allergies Active Allergy Reactions Criticality Noted Date Comments Molds & Smuts Rash Low 02/26/2022 Penicillins Rash Low 12/25/2016 Medications UltiCare Alcohol Swabs 70 % pads APPLY 1 PAD TO SKIN TWICE A DAY 022 Active dicyclomine (Bentyl) 20 MG tablet Take 20 mg by mouth if needed in the morning, at noon, and at bedtime. 022 Active FREESTYLE LITE test strip USE TO TEST TWICE A DAY 022 Active albuterol (2.5 MG/3ML) 0.083% nebulizer solutionIndicatio ns:Mild persistent asthma without complication USE 3 ML VIA NEBULIZER 3 TIMES A DAY 75 mL 2 023 Active ciclopirox (Penlac) 8 % solutionIndicatio ns:Onychomycosis Apply topically at bedtime. 30 mL 1 023 Active estradiol (Estrace) 0.1 MG/GM vaginal cream Insert 1 g into the vagina 2 (two) times a week. 42.5 g 1 023 Active ibuprofen 600 MG tabletIndications :Costochondritis TOME ALEXYS TABLETA ROSIBEL VECES AL SRINATH 90 tablet 1 023 Active melatonin 5 MG tablet TAKE 1-2 TABLET BY MOUTH AT BEDTIME NEEDED FOR SYMPTOMS OF INSOMNIA. 023 Active albuterol (Ventolin HFA) 108 (90 Base) MCG/ACT inhalerIndication s:Mild persistent asthma without complication INHALE 2 PUFFS BY MOUTH EVERY 4 HOURS IF NEEDED FOR SHORTNESS OF BREATH 18 g 023 Active cyclobenzaprine (Flexeril) 5 MG tabletIndications :Right hip pain,Acute midline low back pain, unspecified whether sciatica present Take 1 tablet up to three times daily for back pain/spasm 30 tablet 023 Active pantoprazole (Protonix) 40 MG EC tabletIndications :Upper abdominal pain Take 1 tablet (40 mg) by mouth before breakfast. Do not crush, chew, or split. 30 tablet 11 024 Active hydroCHLOROthiazi de (HYDRODiuril) 12.5 MG tabletIndications :Primary hypertension TAKE 1 TABLET BY MOUTH EVERY MORNING 90 tablet 3 024 Active Neomycin-Polymyxi n-HC 1 % solutionIndicatio ns:Acute otitis externa of left ear, unspecified type Administer 3 drops into affected ear(s) 4 times daily. 10 mL 024 Active terbinafine (LamISIL) 250 MG tabletIndications :Onychomycosis TAKE 1 TABLET BY MOUTH EVERY MORNING 84 tablet 024 Active Diclofenac Sodium 1 % gelIndications:Ce rvicalgia,Chronic left shoulder pain APPLY 1 INCH TOPICALLY IF NEEDED IN THE MORNING AND AT BEDTIME (APPLY TWICE A DAY ON AFFECTED AREA NEEDED) 100 g 1 024 Active atorvastatin (Lipitor) 40 MG tablet TAKE 1 TABLET BY MOUTH EVERY DAY 90 tablet 3 024 Active metFORMIN XR (Glucophage-XR) 500 MG 24 hr tablet Take 2 tablets (1,000 mg) by mouth 2 times daily. Do not crush, chew, or split. 360 tablet 3 024 Active empagliflozin (Jardiance) 25 MGIndications:Typ e 2 diabetes mellitus with hyperglycemia, without long-term current use of insulin ([facility]) Take 1 tablet (25 mg) by mouth Once per day. 30 tablet 11 024 2024 Active glipiZIDE XL (Glucotrol XL) 2.5 MG 24 hr tabletIndications :Type 2 diabetes mellitus without complication, without long-term current use of insulin (CMS/[facility]) TAKE 1 TABLET BY MOUTH ONCE PER DAY. DO NOT CRUSH, CHEW, OR SPLIT. 90 tablet 025 Active venlafaxine XR (Effexor XR) 75 MG 24 hr capsule TAKE 1 CAPSULE BY MOUTH ONCE DAILY DIRECTED FOR (for mood) / FOR ANXIETY 025 Active LORazepam (Ativan) 0.5 MG tabletIndications :Anxiety Take one table before flight 4 tablet 025 Active baclofen (Lioresal) 20 MG tabletIndications :Neck pain TAKE 1 TABLET BY MOUTH THREE TIMES DAILY 30 tablet 1 025 Active Tirzepatide-Weigh t Management (Zepbound) 5 MG/0.5ML solution auto-injectorIndi cations:Type 2 diabetes mellitus with hyperglycemia, without long-term current use of insulin (CMS/HCC) Inject 0.5 mL (5 mg) under the skin 1 (one) time per week. 2 mL 025 Active Tirzepatide-Weigh t Management (Zepbound) 7.5 MG/0.5ML solution auto-injectorIndi cations:Class 1 obesity due to excess calories with serious comorbidity and body mass index (BMI) of 34.0 to 34.9 in adult Inject 0.5 mL (7.5 mg) under the skin 1 (one) time per week. 2 mL 025 Active gabapentin (Neurontin) 800 MG tabletIndications :Chronic left-sided low back pain with left-sided sciatica,Chronic pain of both feet Take 1 tablet (800 mg) by mouth at bedtime. 90 tablet 1 025 2025 Active valACYclovir (Valtrex) 500 MG tabletIndications :Herpes simplex vulvovaginitis Take 1 tablet (500 mg) by mouth Once per day. 30 tablet 11 025 Active Mometasone Furoate (Asmanex HFA) 100 MCG/ACT aerosolIndication s:Mild persistent asthma without complication INHALE 1 PUFF BY MOUTH TWICE DAILY. RINSE MOUTH AFTER USING. 13 g 1 025 Active valACYclovir (Valtrex) 500 MG tablet Take 1 tablet (500 mg) by mouth in the morning. 30 tablet 11 023 2024 Discontinued(R eorder (will not trigger notification to Pharmacy)) Mometasone Furoate (Asmanex HFA) 100 MCG/ACT aerosolIndication s:Mild persistent asthma without complication INHALE 1 PUFF BY MOUTH TWICE A DAY 13 g 1 024 2024 Discontinued gabapentin (Neurontin) 600 MG tabletIndications :Fibromyalgia Take 0.5 tablets (300 mg) by mouth every 8 (eight) hours. 90 tablet 2 024 2024 Discontinued baclofen (Lioresal) 20 MG tabletIndications :Neck pain Take 1 tablet (20 mg) by mouth 3 times daily. 30 tablet 1 025 2024 Discontinued Tirzepatide-Weigh t Management (Zepbound) 5 MG/0.5ML solution auto-injector Inject 0.5 mL (5 mg) under the skin 1 (one) time per week. 2 mL 025 2024 Discontinued carbamide peroxide (Debrox) 6.5 % otic solution Administer 5 drops into the left ear if needed at bedtime for ear pain for up to 3 days. 15 mL 025 2024 Active Problems Problem Noted Date Diagnosed Date Irritation of left ear 05/24/2024 Assessment & Plan (05/24/2024 10:32 AM EDT): No evidence of retained q tip. Tm 100% visible with nothing in canal. No evidence of infection or trauma. Reassurance given. Advised do not use q-tips. Debrox drops given for cerumen removal if needed in the future. Chronic left-sided low back pain with left-sided sciatica 05/09/2024 Assessment & Plan (05/09/2024 2:39 PM EDT): Apply heat on affected area I will go up on her gabapentin to 800 mg 3 times a day I will order an MRI and refer her to pain specialist Chronic pain of both feet 05/09/2024 Herpes simplex vulvovaginitis 05/09/2024 Acute pain of right shoulder 03/04/2024 Class [...] Encounters Date Type Department Care Team Description 05/24/2024 10:40 AM EDT Office Visit [facility] [address] [place] [phone] Miriam Brown MD Irritation of left ear (Primary Dx) 05/21/2024 Refill [facility] [address] [place] [address] Winsome Glass MD Mild persistent asthma without complication 05/09/2024 10:45 AM EDT Office Visit [facility] [address] [place] [address] Winsome Glass MD Chronic left-sided low back pain with left-sided sciatica (Primary Dx); Chronic pain of both feet; Herpes simplex vulvovaginitis 05/09/2024 Travel 05/06/2024 Telephone [facility] [address] [place] [address] Winsome Glass MD Chart Prep 05/05/2024 Telephone [facility] [address] [place] [address] Winsome Glass MD Prior Authorization (Zepbound 7.5mg/0.5mL) 05/04/2024 Orders Only [facility] [address] [place] [address] Winsome Galss MD 05/03/2024 Telephone [facility] [address] [place] [phone] Winsome Glass MD Results 05/02/2024 Orders Only [facility] [address] [place] [address] Winsome Glass MD Class 1 obesity due to excess calories with serious comorbidity and body mass index (BMI) of 34.0 to 34.9 in adult (Primary Dx) 05/02/2024 Refill [facility] [address] [place] [address] Winsome Glass MD Type 2 diabetes mellitus with hyperglycemia, without long-term current use of insulin ([facility]) 05/01/2024 Refill [facility] [address] [place] [address] Winsome Glass MD Neck pain 04/29/2024 Population Health Risk Score Community Care [facility] ([facility] Department [address] [phone] Provider, Population Health Generic 04/28/2024 Outside Procedure [facility] [address] [place], [place] [phone] Jerome, Namita, OD Presbyopia (Primary Dx) 04/27/2024 9:15 AM EDT Office Visit [facility] [address] [place] [address] Namita Cano, OD Hyperopia of both eyes (Primary Dx) 04/05/2024 Orders Only [facility] [address] [place] [address] Winsome Glass MD Anxiety (Primary Dx) 04/05/2024 Telephone [facility] [address] [place] [address] Winsome Glass MD Medication Question 03/21/2024 Refill [facility] [address] [place] [address] Winsome Glass MD 03/21/2024 Refill [facility] [address] [place] [address] Winsome Glass MD 03/14/2024 1:30 PM EST Office Visit [facility] [address] [place] [address] Namita Cano, OD Diabetes type 2, no ocular involvement (CMS/HCC) (Primary Dx); Choroidal nevus of left eye; 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; Meibomian gland dysfunction; Presbyopia 03/14/2024 Travel 03/04/2024 3:15 PM EST Office Visit [facility] [address] [place] [address] Winsome Glass MD Neck pain (Primary Dx); Type 2 diabetes mellitus without complication, without long-term current use of insulin (CMS/HCC); Acute pain of right shoulder 03/04/2024 Travel from Last 3 Months Immunizations Name Administration [...] Sign Reading Time Taken Comments Blood Pressure 117/67 05/24/2024 10:11 AM EDT Pulse 71 05/24/2024 10:11 AM EDT Temperature 36.6 ??C (97.9 ??F) 05/24/2024 10:11 AM E DT Respiratory Rate 16 05/24/2024 10:11 AM EDT Oxygen Saturation 98% 05/24/2024 10:11 AM EDT Inhaled Oxygen Concentration - - Weight 73.5 kg (162 lb) 05/24/2024 10:11 AM EDT Height 154.9 cm (5' 1 ) 05/09/2024 10:07 AM EDT Body Mass Index 30.61 05/09/2024 10:07 AM EDT Plan of Treatment Upcoming Encounters Date Type Department Care Team (Late st Contact Info) Description 06/13/2024 11:00 AM EDT Office Visit [facility] [address] [place] [address] Winsome Glass MD [address] [place] [address] Health Maintenance Due Date Last Done Comments [...] 08/27/2021, 04/29/2021, 03/07/2021 Influenza Vaccine (#1) 2023 , 01/22/2021, 11/24/2018, Additional history exists Dental X-Ray: Full Mouth 01/23/2024 021, 02/24/2020, 10/08/2017 Depression Monitoring 03/18/2024 09/16/2023, 024 Diabetes: Hemoglobin A1C 09/01/2024 025, 09/16/2023, 05/15/2023, Additional history exists Alcohol/Substance Use Screening 09/15/2024 09/16/2023 Depression Screening 09/15/2024 09/16/2023, 09/16/19 24 Lipid Panel 09/15/2024 09/16/2023, 12/08/2022, 06/03/2022, Additional history exists SDOH Screening 09/15/2024 09/16/2023 Tobacco Screening 05/09/2025 05/09/2024 Colorectal Cancer Screening 10/05/2025 FIT DNA/Cologuard 10/05/2025 [...] Procedure Name Priority Date/Time Associated Diagnosis Comments XR HIP 2 OR 3 VIEWS LEFT Routine 03/18/2024 12:17 PM EST Left hip pain FUNDUS PHOTOS - OU - BOTH EYES Routine 03/14/2024 1:30 PM EST Choroidal nevus of left eye POCT GLYCATED HEMOGLOBIN, TOTAL Routine 03/04/2024 3:38 [...] Recently Relevant to Health Maintenance Results * XR Hip 2 or 3 Views Left (03/18/2024 12:17 PM EST) Anatomical Region Laterality Modality Lower Extremities, Hip Left Radiograp hic Imaging 03/18/2024 12:1 7 PM EST Narrative 03/18/2024 12:44 PM EST ?[facility] ?[address] ?[place] [address] ?XRay Report ? Signed ? Patient: Rivka Green ?MR#: ?? [id number] ? : 1970 ?Acct:[id number] ? Age/Sex: 53 / F ?ADM Date: 03/18/24 ? Loc: HO.HHCX ? Attending Dr: Winsome Davis MD ? Ordering Physician: Winsome Glass MD ?? Date of Service: 03/18/24 ?? Procedure(s): XR hip LT min 2V ?? Accession Number(s): [id number] ? cc: Winsome Glass MD ? EXAMINATION: ?? XR HIP, LEFT ? CLINICAL INFORMATION: ?? worsening ? COMPARISON: ?? None available. ? TECHNIQUE: ?? Two views of the left hip. ? FINDINGS: ?? No fracture. Alignment is anatomic. Hip joint space is maintained. Soft ?? tissues are unremarkable. ? XR/XR hip LT min 2V ?? IMPRESSION: ?? Normal left hip. ? Electronically signed by: ??Osei Luciano MD ??03/18/2024 12:42 PM EST RP ? Dictated By: ?Ankita,Osei Dyer MD ? Signed By: ?<Electronically signed by Osei Luciano MD in OV> ?03/18/24 1242 ? DD/ 1217 ? TD/TT: 03/18/24 1227 ? Paperboard Boxes Estimator: MSM ? Procedure Note Donotuseinterpreter, Image - 03/18/2024 [facility] [address] [place] [address] XRay Report Signed Patient: Cassandra Green#: [id number] : 1970Acct:[id number] Age/Sex: 53 / FADM Date: 03/18/24 Loc: HO.HHCX Attending Dr: Winsome Davis MD Ordering Physician: Winsome Glass MD Date of Service: 03/18/24 Procedure(s): XR hip LT min 2V Accession Number(s): [id number] cc: Winsome Glass MD EXAMINATION: XR HIP, LEFT CLINICAL INFORMATION: worsening COMPARISON: None available. TECHNIQUE: Two views of the left hip. FINDINGS: No fracture. Alignment is anatomic. Hip joint space is maintained. Soft tissues are unremarkable. XR/XR hip LT min 2V IMPRESSION: Normal left hip. Electronically signed by: Osei Luciano MD 03/18/2024 12:42 PM EST Dictated By: Osei Luciano MD Signed By: <Electronically signed by Osei Luciano MD in OV> 03/18/24 1242 DD/ 1217 TD/TT: 03/18/24 1227 Paperboard Boxes Estimator: [facility] [place] Winsome Davis MD IMG XR PROCEDURES Fin al Result * Fundus Photos - OU - Both Eyes (03/14/2024 1:30 PM EST) Narrative Namita Cano, OD - 04/01/2024 3:58 PM EST Right Eye Progression has been stable. Disc findings include normal observations. Macula findings include normal observations. Vessel findings include normal observations. Periphery findings include (Scattered dominant drusen). Left Eye Progression has been stable. Disc findings include normal observations. Macula findings include normal observations. Vessel findings include normal observations. Periphery findings include (5DD flat choroidal nevus with drusen, without lipofuscin at 7:00; scattered dominant drusen). 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 Stable to previous exam findings. Will monitor in 1 year. Namita Cano OD OPHTH PHOTOGRAPHY Edited Resu lt - Final * (ABNORMAL) POCT HGB A1C (03/04/2024 3:38 PM EST) Hemoglobin A1C 6.1(A) 4.0 - 6.0 % QC Media Lot # [id number] Lot# Expiration Date 761 Blood 03/04/2024 3:38 PM EST Winsome Davis MD POINT OF CARE TEST EN TER/EDIT ORDERABLES Final Result * POCT Glucose (03/04/2024 3:35 PM EST) Glucose Blood, POC 142 60 - 200 mg/dL QC Media Lot # [id number] Lot# Expiration Date 278 Blood Capillary blood specimen / Unknown 03/04/2024 3:35 PM EST Winsome Davis MD POINT OF CARE TEST EN TER/EDIT ORDERABLES Final Result * Lipid Panel with Reflex to Direct LDL (09/16/2023 12:00 AM EDT) Triglycerides 58 <150 mg/dL [facility] Comment:Desirable Triglyceri de: less than 150 mg/dLBorderline High Triglyceride 150-199 mg/dLHigh Triglyceride: 200-499 mg/dLVery High Triglyceride: greater than or equal to 5OO mg/dL Cholesterol 142 <200 mg/dL [facility] Comment:Desirable Cholestero l: less than 200 mg/dLBorderline High Cholesterol: 200-239 mg/dLHigh Cholesterol: greater than 239 mg/dL LDL Cholesterol Calculated 86 <100 mg/dL [facility] Comment:Desirable LDL: less than 100 mg/dLNear Optimal/Above Optimal LDL: 110- 129 mg/dLBorderline High LDL: 130-159 mg/dLHigh LDL: 160-189 mg/dLVery High LDL: greater than or equal to 190 mg/dL HDL Cholesterol 45 >40 mg/dL [facility] Comment:Desirable HDL: great er than 40 mg/dL Note: This HDL assay may give artificially low results in patients with liver disease. Blood 09/16/2023 09/16/2023 Winsome Davis MD LAB BLOOD ORDERABLES Final Result [facility] [address] [place] [address] [phone] * Cologuard?? colon cancer screening (10/05/2022 10:15 PM EDT) Cologuard Result Negative Negative 10/12/19 4:43 AM EDT [facility] (CLIA #:[id number]) Comment: NEGATIVE TEST RESULT. A negative Cologuard [...] screened with both Cologuard and colonoscopy. (Baldomero Lockwood al, N Engl J Med 2014;370(14):1286- 1297) The normal value (reference range) for this assay is negative. COLOGUARD RE-SCREENING RECOMMENDATION: Periodic colorectal cancer screening is an important part of preventive healthcare for asymptomatic individuals at average risk for colorectal cancer. ??Following a negative Cologuard result, the [place] [employer] and U.S. Multi-Society Task Force screening guidelines recommend a Cologuard re-screening interval of 3 years. References: [place] [employer] Guideline for Colorectal Cancer Screening: https://www.cancer.org/cancer/qhpno-trhule-hqazkh/intqzofxd-cmsrlaubu-twnknrj/ac s-rec ommendations.html.; Timmy DK, Cesar CR, Jenny DoddK, Colorectal Cancer Screening: Recommendations for Physicians and Patients from the U.S. Multi-Society Task Force on Colorectal Cancer Screening , Am J Gastroenterology 2017; 112:4254-8293. TEST DESCRIPTION: Composite algorithmic analysis of stool [...] screened with both Cologuard and colonoscopy. (Baldomero Iniguez et al, N Engl J Med 2014;370(14):3746-5888.) Cologuard may produce a false negative or false positive result (no colorectal cancer or precancerous polyp present at colonoscopy follow up). A negative Cologuard test result does not guarantee the absence of CRC or advanced adenoma (pre-cancer). The current Cologuard screening interval is every 3 years. ([place] [employer] and U.S. Multi-Society Task Force). Cologuard performance data in a 10,000 patient pivotal study using colonoscopy as the reference method can be accessed at the following location: www.Peg Bandwidth.Ludei/results. Additional description of the Cologuard test process, warnings and precautions can be found at www.cologuard.com. Stool specimen (specimen) 10/05/2022 10:15 PM EDT 10/07/2022 9:28 PM EDT Winsome Davis MD LAB MOLECULAR DIAGNOS TICS ORDERABLES Final Result [facility] (CLIA #:[id number]) [place] [address], [place] [phone] * HIV-1/2 Antigen and Antibodies, Fourth Generation, with Reflexes (06/03/2022 8:19 AM EDT) [facility] HIV Antigen/Antibody, 4th Generation NON-REAC TIVE NON-REAC TIVE [facility] Comment: HIV-1 antigen and HIV-1/HIV-2 antibodies were [...] ?? For additional information please refer to http://education.OpenBook.Ludei/faq/EGN710 (This link is being provided for informational/ educational purposes only.) The performance of this assay has not been clinically validated in patients less than 2 years old. Blood Venous blood specimen / Unknown 06/03/2022 8:19 AM EDT 06/03/2022 8:19 AM EDT Narrative [facility] - 06/04/2022 4:07 PM EDT FASTING:YES FASTING: YES Jovita Kate CNM LAB BLOOD ORDERABLES Ivy l Result [facility] [address], [place] [address] [facility] [address] [place] [address] * Albumin, Random Urine W/O Creatinine (06/03/2022 8:17 AM EDT) Pathologist [facility] Albumin, Urine 0.9 See Note: mg/dL [employer] [facility] Comment: Reference Range: Reference Range Not established [facility] Diag nost[facility] Comment: The ADA defines abnormalities in albumin [...] AM EDT 06/03/2022 8:18 AM EDT Narrative [facility] 06/03/2022 10:43 PM EDT FASTING:YES FASTING: YES Winsome Davis MD LAB URINE ORDERABLES Final Result [facility] [address], [place] [address] [employer] [facility] [address] [place] [address] * HEPATITIS C AB W/REFL TO HCV RNA, QN, PCR (07/31/2021 4:19 PM EDT) [facility] HEPATITIS C ANTIBODY NON-REACT BR[facility] NON-REACT [facility] INDEX 0.07 <1.00 [facility] Comment: ?? HCV antibody was non-reactive. There is no laboratory ?? evidence of HCV infection. ?? In most cases, no further action is required. However, if recent HCV exposure is suspected, a test for HCV RNA (test code 09728) is suggested. ?? For additional information please refer to http://education.Social Insight/faq/BRJ81y7 (This link is being provided for informational/ educational purposes only.) ?? 07/31/2021 4:19 PM EDT us Jovita Kate CNM HISTORICAL/NON ORDERABLE LABS Final Result [facility] [address] * DIGITAL BILATERAL SCREEN 1 (01/27/2017 8:02 AM EST) Anatomical Region Laterality Modality Breast Bilateral Mammography 01/27/2017 8:02 AM EST Narrative 01/28/2017 2:42 PM EST Refer to the Notes tab for result details [facility] Procedure: DIGITAL BILATERAL SCREEN 1 Procedure Note Provider, Alexa, - 05/10/2022 Refer to the Notes tab for result details [facility] Procedure: DIGITAL BILATERAL SCREEN 1 us Historical Provider IMG BI PROCEDURES Final R esult from Last 3 Months or Most Recently Relevant to Health Maintenance Insurance [facility] STANDARD DENTAL-[facility] MEDICA[facility] STAND ADULT Care Teams Regulatory Technician Relationship Specialty Start Date End Date Winsome Glass MD [address] [place] [id number] PCP - General Family Medicine 09/27/19 Lakesha Livingston Architectural ManagerExplosive Operator Fuse 07/27/23
--- OUTSIDE RECORDS SUMMARY | 2024-05-30 16:20 | XMS_ITS | Encounter Summary ---
Author Organization [employer] Address [address] [facility] 7t [place] [address] Care Team Providers Care Assistant Producer Name Role Phone Winsome Glass MD Primary Care Provide r Reason for Visit * Reason Onset Date Comments Durable Medical Equipment 03/06/2022 Encounter Details Date Type Department Care Team (Late st Contact Info) Description 03/06/[address] [facility] [address] [place] [address] Winsome Glass MD [address] [place] [address] Durable Medical Equipment Social History Tobacco Use [...] 11:00 AM EDT Office Visit [facility] [address] [place], [place] [phone] Winsome Glass MD [address] [place], [place] [phone] documented as of this encounter Visit Diagnoses Not on filedocumented in this encounter Care Teams Assistant Producer Relationship Specialty Start Date End Date Winsome Glass MD [address] [place], [place] [phone] PCP - General Family Medicine 09/27/19 Lakesha Livingston Life Science TechnicianPrimer Supervisor 07/27/23 documented as of this encounter
--- OUTSIDE RECORDS SUMMARY | 2024-05-30 16:20 | XMS_ITS | Encounter Summary ---
Author Organization [employer] Address [address] [facility] [address]t [place] [address] Care Team Providers Care Fleet Administrative Assistant Name Role Phone Winsome Glass MD Primary Care Provide r Reason for Visit * Reason Comments Med Refill Encounter Details Date Type Department Care Team (Late st Contact Info) Description 08/11/2023 Refill [facility] [address] [place], [place] [phone] Winsome Glass MD [address] [place], [place] [phone] Onychomycosis Social History Tobacco Use Types Packs/Day [...] Description 06/13/2024 11:00 AM EDT Office Visit [facility] [address] [place] [phone] Winsome Glass MD [address] [place] [address] documented as of this encounter Visit Diagnoses Diagnosis Onychomycosis Dermatophytosis of nail documented in this encounter Additional Health Concerns Assessment Noted Time PHQ-9 Depression Total Score: 9 05/23/19 23 10:50 AM EDT documented as of this encounter Care Teams Fleet Administrative Assistant Relationship Specialty Start Date End Date Winsome Glass MD [address] [place] [phone] PCP - General Family Medicine 09/27/19 Lakesha Livingston CraCoke Burner 07/27/23 documented as of this encounter
--- OUTSIDE RECORDS SUMMARY | 2024-05-30 16:20 | XMS_ITS | Clinical Summary ---
Author Organization [facility] Address [address] [place] [address] Phone Care Team Providers Care Design Consultant Name Role Phone Winsome Glass MD Primary Care Provide r Allergies Active Allergy Reactions Criticality Noted Date Comments Penicillins 12/02/2017 Medications nebulizers misc by Not Applicable route. Active inhaler,assist device,lg mask (BREATHERITE SPACER-MASK,ROSE MARIE LT MISC) by Not Applicable route. Active nebulizers [...] every 4 (four) hours if needed. Active acetaminophen-c odeine (TYLENOL #4) 300-60 mg per tablet Take [...] mL by mouth 2 times daily. Active hydroCHLOROthia zide 12.5 mg tablet Take 12.5 mg by mouth daily. Active meclizine (ANTIVERT) 25 mg tablet Take by mouth. Activ e metFORMIN XR (GLUCOPHAGE-XR) 500 mg 24 hr [...] 4 hours as needed for severe pain. 8 Active RANITIDINE HCL ORAL Take 75 mg by mouth 2 times daily. Active valACYclovir (VALTREX) 500 mg tablet Take 500 mg by mouth 3 times daily. Active zolpidem (AMBIEN) 10 mg tablet Take by mouth at bedtime as needed. 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 LSO w small remanent ovary left due to adhesion Medical History Medical History Date Comments Diabetes mellitus type 2, co ntrolled, with complications ([facility] V24, [facility] V28) DX:Diabetes mellitus type 2, controlled, with complications ([facility]) Family History Medical History Relation Name Comments [...] Recorded Sex Assigned at Not on file Legal Sex Female 6:34 AM EST Gender Identity Not on file Sexual Orientation Not on file Obstetrics History Plan of Treatment Health Maintenance Due Date Last Done Comments Breast Cancer Screening 1970 Diabetes: Annual GFR (Glomer ular Filtration Rate) 1970 Diabetes: Annual Foot Exam 1980 Diabetes: Annual Retina Eye Exam 1980 DTaP,Tdap,and Td Vaccines (1 - Tdap) 1989 Hepatitis B Vaccines (1 of 3 - 19+ 3-dose series) 1989 Pneumococcal Vaccine: 50+ Ye ars (1 of 2 - PCV) 1989 Pneumococcal Vaccine: Pediat rics (0 to 5 Years) and At-Risk Patients (6 to 64 Years) (1 of 2 - PCV) 1989 Cervical Cancer Screening: P ap Smear 06/28/1991 Zoster Vaccines (1 of 2) 2020 Cholesterol Screening (Lipid Panel) 01/19/2022 Colorectal Cancer Screening: Colonoscopy 01/19/2022 Depression Screening 01/19/2022 HIV Screening 01/19/2022 Hepatitis C Screening 01/19/2022 Social Influencers of Health Screening 01/19/2022 Diabetes: Annual Urine Albumin-Creatinine Ratio (uACR) 02/01/2022 Diabetes: Blood Sugar Contro l Test (HGBA1C) 02/01/2022 COVID-19 Vaccine (2023-2 5 season) 2023 Influenza Vaccine (Season Ended) 2024 HIB Vaccines Aged Out No longer eligi [...] patient's age to complete this topic Meningococcal B Vaccine Aged Out No l onger eligible based on patient's age to complete this topic RSV Immunization Patients Un parvez 20 months Aged Out No longer eligible b ased on patient's age to complete this topic Varicella Vaccines Aged Out No longer eligible based on patient's age to complete this topic Care Teams Design Consultant Relationship Specialty Start Date End Date Winsome Glass MD [address] [place] [phone] [facility] - General 09/18/23
--- OUTSIDE RECORDS SUMMARY | 2024-05-30 16:20 | XMS_ITS | Encounter Summary ---
Author Organization [employer] Address [address] [facility] 7t [place] [address] Care Team Providers Care Second Shift Supervisor Name Role Phone Winsome Glass MD Primary Care Provide r Encounter Details Date Type Department Care Team (Late Contact Info) Description 07/23/2022 Orders Only [facility] ADULT DENTAL [address] [place] [address] Rolanda Avelar, DDS [address] [place] [address] Social History Tobacco Use Types Packs/Day Years [...] Description 06/13/2024 11:00 AM EDT Office Visit [facility] MEDICINE [address] [place] [address] Winsome Glass MD [address] [place] [address] documented as of this encounter Visit Diagnoses Not on filedocumented in this encounter Additional Health Concerns Assessment Noted Time PHQ-9 Depression Total Score: 9 05/23/19 23 10:50 AM EDT documented as of this encounter Care Teams Second Shift Supervisor Relationship Specialty Start Date End Date Winsome Glass MD [address] [place], [place] [phone] PCP - General Family Medicine 09/27/19 Lakesha Livingston Director TransportationConcreter 07/27/23 documented as of this encounter
--- OUTSIDE RECORDS SUMMARY | 2024-05-30 16:20 | XMS_ITS | Encounter Summary ---
Author Organization [email or web address] [facility] Address [address] [place] [address] 7t [place] [address] Care Team Providers Care Cartridge Belt Puncher Name Role Phone Winsome Glass MD Primary Care Provide r Encounter Details Date Type Department Care Team (Latest Contact Info) Description 02/24/2020 Abstract [facility] CONVERSIONS Dental, Provider, DDS Social [...] 11:00 AM EDT Office Visit [facility] MEDICINE [address] [place] [address] Winsome Glass MD [address] [place] [address] documented as of this encounter Visit Diagnoses Not on filedocumented in this encounter Care Teams Cartridge Belt Puncher Relationship Specialty Start Date End Date Winsome Glass MD [address] [place] [address] [phone] PCP - General Family Medicine 09/27/19 Lakesha Livingston Tire SpecialistDynamo Tender 07/27/23 documented as of this encounter
--- OUTSIDE RECORDS SUMMARY | 2024-05-30 16:20 | XMS_ITS | Encounter Summary ---
Author Organization [employer] Address [address] [facility] 7t [place] [address] Care Team Providers Care Employee Communications Intern Name Role Phone Winsome Glass MD Primary Care Provide r Reason for Visit * Reason Comments Med Refill Encounter Details Date Type Department Care Team (Late st Contact Info) Description 08/14/2022 Refill [facility] MEDICINE [address] [place] [address] Angela Jolley, ANA [address] [place] [address] Type 2 diabetes mellitus without complication, without long-term current use of insulin ([facility]) Social History Tobacco Use Types Packs/Day Years [...] Description 06/13/2024 11:00 AM EDT Office Visit [facility] MEDICINE [address] [place] [address] Winsome Glass MD [address] [place] [address] documented as of this encounter Visit Diagnoses Diagnosis Type 2 diabetes mellitus without complication, without long-term current use of insulin ([facility]) documented in this encounter Additional Health Concerns Assessment Noted Time PHQ-9 Depression Total Score: 9 05/23/19 23 10:50 AM EDT documented as of this encounter Care Teams Employee Communications Intern Relationship Specialty Start Date End Date Winsome Glass MD [address] [place] [address] PCP - General Family Medicine 09/27/19 Lakesha Livingston Rheostat AssemblerGreenhouse Specialist 07/27/23 documented as of this encounter
--- OUTSIDE RECORDS SUMMARY | 2024-05-30 16:20 | XMS_ITS | Encounter Summary ---
Author Organization [employer] Address [address] [facility] 7t [place] [address] Care Team Providers Care Product Lead Name Role Phone Winsome Glass MD Primary Care Provide r Reason for Visit * Reason Onset Date Comments Referral 09/03/2023 Encounter Details Date Type Department Care Team ([facility] st Contact Info) Description 09/03/2023 Telephone [facility] MEDICINE [address] [place] [address] Winsome Glass MD [address] [place] [address] Referral Social History Tobacco Use Types Packs/Day [...] 3:37 PM EDT Tc from Kae at [facility] requesting a referral for pt for a food program. Any questions contact Shanita at [phone] documented in this encounter Plan of Treatment Upcoming Encounters Date Type Department Care Team (Late st Contact Info) Description 06/13/2024 11:00 AM EDT Office Visit [facility] MEDICINE [address] [place] [phone] Winsome Glass MD [address] [place] [address] documented as of this encounter Visit Diagnoses Not on filedocumented in this encounter Additional Health Concerns Assessment Noted Time PHQ-9 Depression Total Score: 9 05/23/19 23 10:50 AM EDT documented as of this encounter Care Teams Product Lead Relationship Specialty Start Date End Date Winsome Glass MD [address] [place] [address] [phone] PCP - General Family Medicine 09/27/19 Lakesha Livingston Implementation ArchitectTag Machine Operator 07/27/23 documented as of this encounter
--- OUTSIDE RECORDS SUMMARY | 2024-05-30 16:20 | XMS_ITS | Encounter Summary ---
Author Organization [employer] Address [address] [facility] [address] 7[address] [place] [address] Care Team Providers Care Quality Assurance Associate Name Role Phone Winsome Glass MD Primary Care Provide r Encounter Details Date Type Department Care Team (Late st Contact Info) Description 04/02/[address] [facility] MEDICINE [address] [place], [place] [phone] Winsome Glass MD [address] [place], [place] [phone] Social History Tobacco Use Types Packs/Day Years [...] 04/02/2023 2:49 PM EST TC to Alethea aDy patient case coordinator at [facility], had to leave VM message would like to discuss increasing MANAGEMENT SUPERVISOR hours for patient. I have contacted [facility] on 01/30/23 and 02/19/23 and have left VM messages with no response back. Awaiting return call. documented in this encounter Plan of Treatment Upcoming Encounters Date Type Department Care Team (Late st Contact Info) Description 06/13/2024 11:00 AM EDT Office Visit [facility] MEDICINE [address] [place] [address] Winsome Glass MD [address] [place] [address] documented as of this encounter Visit Diagnoses Not on filedocumented in this encounter Additional Health Concerns Assessment Noted Time PHQ-9 Depression Total Score: 9 05/23/19 23 10:50 AM EDT documented as of this encounter Care Teams Quality Assurance Associate Relationship Specialty Start Date End Date Winsome Glass MD [address] [place] [address] PCP - General Family Medicine 09/27/19 Lakesha Livingston Sole Molding Machine OperatorAccounting File Clerk 07/27/23 documented as of this encounter
--- OUTSIDE RECORDS SUMMARY | 2024-05-30 16:20 | XMS_ITS | Encounter Summary ---
Author Organization [employer] Address [address] [facility] [address] 7t [place] [address] Care Team Providers Care Accreditation Specialist Name Role Phone Winsome Glass MD Primary Care Provide r Encounter Details Date Type Department Care Team (Late st Contact Info) Description 01/21/2023 Telephone [facility] MEDICINE [address] [place], [place] [phone] Winsome Glass MD [address] [place], [place] [phone] Social History Tobacco Use Types Packs/Day Years [...] Description 06/13/2024 11:00 AM EDT Office Visit [facility] MEDICINE [address] [place] [address] Winsome Glass MD [address] [place] [address] documented as of this encounter Visit Diagnoses Not on filedocumented in this encounter Additional Health Concerns Assessment Noted Time PHQ-9 Depression Total Score: 9 05/23/19 23 10:50 AM EDT documented as of this encounter Care Teams Accreditation Specialist Relationship Specialty Start Date End Date Winsome Glass MD [address] [place] [phone] PCP - General Family Medicine 09/27/19 Lakesha Livingston Manager Of ClinicalSheetmetal Patternmaker 07/27/23 documented as of this encounter
== END 2024-05-30 14:56 | disposition home or self-care (01) ==
LOC: HO.PMC 14:02
PROVIDERS: PCP Internal Medicine; Visit Provider Nurse Practitioner Family
DX: M54.50 Low back pain, unspecified (principal); G89.29 Other chronic pain; M54.16 Radiculopathy, lumbar region; M53.3 Sacrococcygeal disorders, not elsewhere classified; M79.18 Myalgia, other site; M79.7 Fibromyalgia
CPT/HCPCS: 99214

== ENCOUNTER → 2024-05-30 14:02 | Outpatient (BNVA) | payer MEDICAID, SELFPAY | PROVIDERS: PCP Internal Medicine; Visit Provider Nurse Practitioner Family | DX: M54.50 Low back pain, unspecified (principal); M54.16 Radiculopathy, lumbar region; M53.3 Sacrococcygeal disorders, not elsewhere classified; M79.18 Myalgia, other site; M79.7 Fibromyalgia; G89.29 Other chronic pain | CPT/HCPCS: 99212 ==

== ENCOUNTER 2024-12-13 11:43 | Outpatient (REF) | payer MEDICAID, SELFPAY ==
--- OUTSIDE RECORDS SUMMARY | 2024-12-13 11:30 | XMS_ITS | Encounter Summary ---
Author Organization [employer] Address [address] [facility] [address] 7[address] [place] [address] Care Team Providers Care Loom Mechanic Name Role Phone Winsome Glass MD Primary Care Provide r Reason for Visit * Reason Comments follow up Encounter Details Date Type Department Care Team ([facility] st Contact Info) Description 12/13/2024 11:30 AM EDT Office Visit [facility] MEDICINE [address] [place] [address] Jovita Kate CNM [address] [place] [address] Screening examination for venereal disease (Primary Dx) Social History Tobacco Use Types Packs/Day Years [...] housing situation today? I have debra rees 06/02/[address] you li ve. Do you have problems with any of the following? None of the above 06/02/2024 Food Insecurity Answer Date Recorded Within the past 12 months, y ou worried that your food would run out before you got money to buy more: Never True 06/02/2024 Within the past 12 months,th e food [...] the past 12 months, has t he [employer], gas, oil or water company threatened to shut off services in your home? No 06/02/2024 Depression Answer Date Recorded Patient Health Questionnaire-2 Score 2 09/16/2023 Internet Access Answer Date Recorded Internet Access Q1 Yes 06/02/2024 Internet Access Q2 Not on file 06/02/2024 Comments Unknown Sex and Gender Information Value Date Recorded Sex Assigned at Female 12/16/2021 10:18 AM EDT Legal Sex Female 10:18 AM EDT Gender Identity Choose not to disclose 10:18 AM EDT Sexual Orientation Straight 12/16/2021 10 :18 AM EDT documented as of this encounter Last Filed Vital Signs Vital Sign Reading Time Taken Comments Blood Pressure 98/64 12/13/2024 11:12 AM EDT Pulse 70 12/13/2024 11:12 AM EDT Temperature 36.5 C (97.7 F) 12/13/2024 11:12 AM EDT Respiratory Rate 14 12/13/2024 11:12 AM EDT Oxygen Saturation 98% 12/13/2024 11:12 AM EDT Inhaled Oxygen Concentration - - Weight 55.3 kg (122 lb) 12/13/2024 11:12 AM EDT Height - - Body Mass Index 22.31 06/13/2024 10:48 AM EDT documented in this encounter Progress Notes * Jovita Kate CNM - 12/13/2024 11:30 AM EDT Subjective Patient ID: Rivka Malcolm is a 54 y.o. adult who presents for PLATING STRIPPER visit Would like full STI testing today. Last with former correction partner 1 m ago. Asymptomatic. Oral/vaginal/anal sex. Hysterectomy years ago with subsequent unilateral oophorectomy 08/2020. Small remnant of left ovary remained due to adhesions. No ovaries seen on pelvic ultrasound 11/2020. No pelvic findings on CT 10/2021. Review of Systems Genitourinary: Negative for vaginal discharge and vaginal pain. Objective BP 98/64 (BP Location: Left arm, Patient Position: Sitting, BP Cuff Size: Adult) Pulse 70 Temp 97.7 ??F (36.5 ??C) (Oral) Resp 14 Wt 122 lb (55.3 kg) SpO2 98% BMI 22.31 kg/m?? Physical Exam Constitutional: Appearance: Normal appearance. Genitourinary: General: Normal vulva. Labia: Right: No rash, tenderness, lesion or injury. Left: No rash, tenderness, lesion or injury. Comments: Blind swab collection, no speculum used. Neurological: Mental Status: She is alert. Psychiatric: Mood and Affect: Mood normal. Behavior: Behavior normal. Assessment/Plan Diagnoses and all orders for this visit: Screening examination for venereal disease - Chlamydia/N. Gonorrhoeae RNA, TMA, Rectal; Future - Chlamydia/N. Gonorrhoeae RNA, TMA, Throat; Future - Chlamydia/N. Gonorrhoeae RNA, TMA, Vagina - HIV-1/2 Antigen and Antibodies, Fourth Generation, with Reflexes; Future - Syphilis Screen; Future - Trichomonas RNA (Urine/Vaginal) Hep C neg 2021, received HBV series. For oral/anal/vaginal testing and serum labs as ordered. Will contact with results. Discussed HSV medication. If asymptomatic and not sexually active, no need for treatment but may continue if she wants. May schedule appointment in the future if she wants me to discuss HSV with a partner and her together. documented in this encounter Plan of Treatment Scheduled Orders Name Type Priority Associated Diagnoses Orde r Schedule Chlamydia/N. Gonorrhoeae RNA, TMA, Rectal Microbiology Routine Screening examination for venereal disease Expected: 12/13/2024 (Approximate), Expires: 12/13/2025 Chlamydia/N. Gonorrhoeae RNA, TMA, Throat Microbiology Routine Screening examination for venereal disease Expected: 12/13/2024 (Approximate), Expires: 12/13/2025 Chlamydia/N. Gonorrhoeae RNA, TMA, Vagina Microbiology Routine Screening examination for venereal disease Ordered: 12/13/2024 HIV-1/2 Antigen and Antibodies, Fourth Generation, with Reflexes Lab Routine Screening examination for venereal disease Expected: 12/13/2024 (Approximate), Expires: 12/13/2025 Syphilis Screen Lab Routine Screening examination for venereal disease Expected: 12/13/2024 (Approximate), Expires: 12/13/2025 Trichomonas RNA (Urine/Vaginal) Lab Routine Screening examination for venereal disease Ordered: 12/13/2024 documented as of this encounter Visit Diagnoses Diagnosis Screening examination for venereal disease- Primary documented in this encounter Additional Health Concerns Assessment Noted Time PHQ-9 Depression Total Score: 11 024 2:31 PM EDT documented as of this encounter Care Teams Loom Mechanic Relationship Specialty Start Date End Date Winsome Glass MD [address] [place] [phone] PCP - General Family Medicine 09/27/19 Lakesha Livingston Heavy Equipment Operating EngineerCataract Lens Generator 07/27/23 documented as of this encounter
--- OUTSIDE RECORDS SUMMARY | 2024-12-13 15:11 | XMS_ITS | Encounter Summary ---
Author Organization [employer] Address [address] [facility] [address]t [place] [address] Care Team Providers Care Groundman Name Role Phone Winsome Glass MD Primary Care Provide r Reason for Visit * Reason Comments Med Refill Encounter Details Date Type Department Care Team (Late st Contact Info) Description 08/14/2022 Refill [facility] MEDICINE [address] [place] [address] Angela Jolley FNP [address] [place] [address] Type 2 diabetes mellitus without complication, without long-term current use of insulin ([facility]) Social History Tobacco Use Types Packs/Day Years [...] as of this encounter Plan of Treatment Not on file documented as of this encounter Visit Diagnoses Diagnosis Type 2 diabetes mellitus without complication, without long-term current use of insulin (HCC) documented in this encounter Additional Health Concerns Assessment Noted Time PHQ-9 Depression Total Score: 9 05/23/19 23 10:50 AM EDT documented as of this encounter Care Teams Groundman Relationship Specialty Start Date End Date Winsome Glass MD [address] [place] [address] PCP - General Family Medicine 09/27/19 Lakesha Livingston Poultry Farm SupervisorManufactured Buildings Supervisor 07/27/23 documented as of this encounter
--- OUTSIDE RECORDS SUMMARY | 2024-12-13 15:11 | XMS_ITS | Encounter Summary ---
Author Organization [employer] Address [address] [facility] [address] 7t [place] [address] Care Team Providers Care Cryptography Teacher Name Role Phone Winsome Glass MD Primary Care Provide r Encounter Details Date Type Department Care Team (Late st Contact Info) Description 01/21/2023 Telephone [facility] MEDICINE [address] [place] [address] Winsome Glass MD [address] [place] [address] Social History Tobacco Use Types Packs/Day Years Used Date Smoking Tobacco: Never Passive Smoke Exposure: Never Smokeless Tobacco: Never Alcohol Use Standard Drinks/Week Comments Yes 0 (1 standard drink = 0.6 oz pur e alcohol) Depression Answer Date Recorded Patient Health Questionnaire-9 Score 9 05/22/2022 Housing Stability Answer Date Recorded What is your housing situation today? I have debrarodriguez rees 12/03/[address] you [...] documented as of this encounter Care Teams Cryptography Teacher Relationship Specialty Start Date End Date Winsome Glass MD [address] [place] [phone] PCP - General Family Medicine 09/27/19 Lakesha Livingston Hydraulic Press TenderTraffic Signal Technician 07/27/23 documented as of this encounter
--- OUTSIDE RECORDS SUMMARY | 2024-12-13 15:11 | XMS_ITS | Encounter Summary ---
Author Organization [employer] Address [address] [facility] [address] 7t [place] [address] Care Team Providers Care Cement Mixer Driver Name Role Phone Winsome Glass MD Primary Care Provide r Encounter Details Date Type Department Care Team (Latest Contact Info) Description 12/13/2024 Travel Social History Tobacco Use Types Packs/Day [...] documented as of this encounter Care Teams Cement Mixer Driver Relationship Specialty Start Date End Date Winsome Glass MD [address] [place] [phone] PCP - General Family Medicine 09/27/19 Lakesha Livingston Glass Bulb Machine AdjusterTransformer Stock Clerk 07/27/23 documented as of this encounter
--- OUTSIDE RECORDS SUMMARY | 2024-12-13 15:11 | XMS_ITS | Encounter Summary ---
Author Organization [employer] Address [address] [facility] [address] [place] [address] Care Team Providers Care Web Application Tester Name Role Phone Winsome Glass MD Primary Care Provide r Encounter Details Date Type Department Care Team (Late st Contact Info) Description 07/23/2022 Orders Only [facility] ADULT DENTAL [address] [place] [address] Rolanda Avelar, DDS [address] [place] [address] Social History Tobacco Use Types Packs/Day Years [...] documented as of this encounter Care Teams Web Application Tester Relationship Specialty Start Date End Date Winsome Glass MD [address] [place] [address] PCP - General Family Medicine 09/27/19 Lakesha Livingston Kennel AttendantTest Center Manager 07/27/23 documented as of this encounter
--- OUTSIDE RECORDS SUMMARY | 2024-12-13 15:11 | XMS_ITS | Clinical Summary ---
Author Organization [employer] Address [address] [facility] 7t [place] [address] Care Team Providers Care Sat Tutor Name Role Phone Winsome Glass MD Primary [...] 22 Active albuterol (2.5 MG/3ML) 0.083% nebulizer solutionIndication s:Mild persistent asthma without complication USE 3 ML VIA NEBULIZER 3 TIMES A DAY 75 mL 2 05/23/19 23 Active ciclopirox (Penlac) 8 % solutionIndication s:Onychomycosis Apply topically at bedtime. 30 mL 1 05/23/19 23 Active estradiol (Estrace) 0.1 MG/GM vaginal cream Insert 1 g into the vagina 2 (two) times a week. 42.5 g 1 10/24/19 23 Active ibuprofen 600 MG tabletIndications: Costochondritis TOME ALEXYS TABLETA ROSIBEL VECES AL SRINATH 90 tablet 1 11/20/19 23 Active melatonin 5 MG tablet TAKE 1-2 TABLET BY MOUTH AT BEDTIME NEEDED FOR SYMPTOMS OF INSOMNIA. 10/23/19 23 Active cyclobenzaprine (Flexeril) 5 MG tabletIndications: Right hip pain,Acute midline low back pain, unspecified whether sciatica present Take 1 tablet up to three times daily for back pain/spasm 30 tablet 01/28/20 23 Active pantoprazole (Protonix) 40 MG EC tabletIndications: Upper abdominal pain Take 1 tablet (40 mg) by mouth before breakfast. Do not crush, chew, or split. 30 tablet 11 03/18/19 24 Active Neomycin-Polymyxin -HC 1 % solutionIndication s:Acute otitis externa of left ear, unspecified type Administer 3 drops into affected ear(s) 4 times daily. 10 mL 09/16/19 24 Active terbinafine (LamISIL) 250 MG tabletIndications: Onychomycosis TAKE 1 TABLET BY MOUTH EVERY MORNING 84 tablet 09/16/19 24 Active Diclofenac Sodium 1 % gelIndications:Cer vicalgia,Chronic left shoulder pain APPLY 1 INCH TOPICALLY IF NEEDED IN THE MORNING AND AT BEDTIME (APPLY TWICE A DAY ON AFFECTED AREA NEEDED) 100 g 1 12/11/19 24 Active metFORMIN XR (Glucophage-XR) 500 MG 24 hr tablet Take 2 tablets (1,000 mg) by mouth 2 times daily. Do not crush, chew, or split. 360 tablet 3 01/26/20 24 Active empagliflozin (Jardiance) 25 MGIndications:Type 2 diabetes mellitus with hyperglycemia, without long-term current use of insulin (HCC) Take 1 tablet (25 mg) by mouth Once per day. 30 tablet 11 01/29/20 24 025 Active glipiZIDE XL (Glucotrol XL) 2.5 MG 24 hr tabletIndications: Type 2 diabetes mellitus without complication, without long-term current use of insulin (HCC) TAKE 1 TABLET BY MOUTH ONCE PER DAY. DO NOT CRUSH, CHEW, OR SPLIT. 90 tablet 02/21/19 25 Active venlafaxine XR (Effexor XR) 75 MG 24 hr capsule TAKE 1 CAPSULE BY MOUTH ONCE DAILY DIRECTED FOR (for mood) / FOR ANXIETY 03/09/19 25 Active LORazepam (Ativan) 0.5 MG tabletIndications: Anxiety Take one table before flight 4 tablet 04/08/19 25 Active baclofen (Lioresal) 20 MG tabletIndications: Neck pain TAKE 1 TABLET BY MOUTH THREE TIMES DAILY 30 tablet 1 05/03/19 25 Active Tirzepatide-Weight Management (Zepbound) 5 MG/0.5ML solution auto-injectorIndic ations:Type 2 diabetes mellitus with hyperglycemia, without long-term current use of insulin (HCC) Inject 0.5 mL (5 mg) under the skin 1 (one) time per week. 2 mL 05/03/19 25 Active Tirzepatide-Weight Management (Zepbound) 7.5 MG/0.5ML solution auto-injectorIndic ations:Class 1 obesity due to excess calories with serious comorbidity and body mass index (BMI) of 34.0 to 34.9 in adult Inject 0.5 mL (7.5 mg) under the skin 1 (one) time per week. 2 mL 05/03/19 25 Active gabapentin (Neurontin) 800 MG tabletIndications: Chronic left-sided low back pain with left-sided sciatica,Chronic pain of both feet Take 1 tablet (800 mg) by mouth at bedtime. 90 tablet 1 05/10/19 25 026 Active valACYclovir (Valtrex) 500 MG tabletIndications: Herpes simplex vulvovaginitis Take 1 tablet (500 mg) by mouth Once per day. 30 tablet 11 05/10/19 25 Active LORazepam (Ativan) 1 MG tabletIndications: Anxiety disorder, unspecified type Take one tablet before the procedure 4 tablet 06/14/19 25 Active albuterol (Ventolin HFA) 108 (90 Base) MCG/ACT inhalerIndications :Mild persistent asthma without complication INHALE 2 PUFFS BY MOUTH EVERY 4 HOURS IF NEEDED FOR SHORTNESS OF BREATH 18 g 06/14/19 25 Active fluticasone furoate (Arnuity Ellipta) 100 MCG/ACT inhalerIndications :Mild persistent asthma without complication Inhale 1 puff Once per day. Rinse mouth with water after use to reduce aftertaste and incidence of candidiasis. Do not swallow. 1 each 11 06/14/19 25 026 Active Tirzepatide-Weight Management (Zepbound) 10 MG/0.5ML solution auto-injector Inject 0.5 mL (10 mg) under the skin 1 (one) time per week. 2 mL 1 06/22/19 25 Active Tirzepatide-Weight Management (Zepbound) 12.5 MG/0.5ML solution auto-injectorIndic ations:Type 2 diabetes mellitus with hyperglycemia, without long-term current use of insulin (HCC) Inject 0.5 mL (12.5 mg) under the skin 1 (one) time per week. 2 mL 1 07/15/19 25 Active Tirzepatide-Weight Management (Zepbound) 15 MG/0.5ML solution auto-injectorIndic ations:Type 2 diabetes mellitus with hyperglycemia, without long-term current use of insulin (HCC) INJECT ONE PEN (=15MG) SUBCUTANEOUSLY ONCE A WEEK DIRECTED 2 mL 3 11/02/19 25 Active atorvastatin (Lipitor) 40 MG tablet TAKE 1 TABLET BY MOUTH EVERY DAY 90 tablet 1 11/04/19 25 Active hydroCHLOROthiazid e 12.5 MG tabletIndications: Primary hypertension TAKE 1 TABLET BY MOUTH EVERY MORNING 90 tablet 1 11/04/19 25 Active Active Problems Problem Noted Date Diagnosed Date Anxiety disorder 06/13/2024 Assessment & Plan (06/13/2024 12:37 PM EDT): I will prescribe lorazepam 1 tablet before the procedure Generalized osteoarthritis of hand 06/13/2024 Assessment & Plan (06/13/2024 12:37 PM EDT): Acetaminophen as needed Irritation of left ear 05/24/2024 Assessment & [...] 02/03/2022 Mild persistent asthma without complication 01/16 Assessment & Plan (06/13/2024 12:37 PM EDT): Stable continue with same inhalers refills done today, I did replace Asmanex with ellipta Shoulder injury related to vaccine administratio n (SIRVA) 02/03/2022 Varicose veins of lower extremity 02/03/2022 Neck pain 12/25/2021 Assessment & Plan (03/08/2024 12:22 PM EST): Apply heat on affected area Acetaminophen PRN Baclofen Q 8hrs(patient is aware of side effect somnolence, she knows she can not drive while on this medication) Dislocation of symphysis pubis 12/25/2016 Fracture of pelvis (CMS/HCC) 12/25/2016 Genital herpes simplex 12/25/2016 Encounters Date Type Department Care Team Description 12/13/2024 11:30 AM EDT Office Visit [facility] [address] [place] [phone] Jovita Kate CNM Screening examination for venereal disease (Primary Dx) 12/13/2024 Travel 12/01/2024 Patient Outreach [facility] [address] [place], [place] [phone] Winsome Glass MD Pre-visit Planning (SDOH was already completed ) 11/11/2024 Telephone [facility] [address] [place], [place] [phone] Winsome Glass MD telephone call; Prior Authorization ( PA: ? Zep[employer] PA) 11/03/2024 Refill [facility] [address] [place], [place] [phone] Winsome Glass MD Primary hypertension 11/01/2024 Refill [facility] [address] [place], [place] [phone] Winsome Glass MD Type 2 diabetes mellitus with hyperglycemia, without long-term current use of insulin ([facility]) 09/13/2024 Telephone [facility] [address] [place], [place] [phone] Winsome Glass MD Chart Prep from Last 3 Months Immunizations Immunization Administration Dates Next Due Hep B, adult [...] (122 lb) 12/13/2024 11:12 AM EDT Height 157.5 cm (5' 2 ) 06/13/2024 10:48 AM EDT Body Mass Index 22.31 06/13/2024 10:48 AM EDT Plan of Treatment Health Maintenance Due Date Last Done Comments CT Colonography 1970 Colonoscopy 1970 FIT 1970 Sigmoidoscopy 1970 Disability Screening 1970 Alcohol/Substance Use Screening 1982 Pap Smear 06/28/1991 Cervical Cancer Screening 2000 HPV/Cotest 2000 Mammogram 01/27/2019 01/27/2017, 01/27/2017 Zoster Vaccines (1 of 2) 2020 Dental Oral Exam 08/07/2020 02/06/2020, 02/2018, 10/08/2017 Dental Prophylaxis 08/24/2020 02/24/2020, 0 11/10/2018, 05/10/2018 Diabetes: Foot Exam 02/03/2023 02/03/2022, 02/03/2022, 02/03/2022, Additional history exists Diabetes: Urine Protein Screening 06/04/2023 06/03/2022, 02/04/2021, 02/08/2020 Dental X-Ray: Bitewings 07/04/2023 07/03/19, 02/06/2020, 11/10/2018, Additional history exists FOBT 10/06/2023 10/05/2022 Dental X-Ray: Full Mouth 01/23/2024 021, 02/24/2020, 10/08/2017 Depression Monitoring 03/18/2024 09/16/2023, 024 Diabetes: Hemoglobin A1C 09/01/2024 025, 09/16/2023, 05/15/2023, Additional history exists Lipid Panel 09/15/2024 09/16/2023, 1208/2022, 06/03/2022, Additional history exists COVID-19 Vaccine ( season) 2024 08/27/2021, 04/29/2021, 03/07/2021 Influenza Vaccine (#1) 2024 2, 01/22/2021, 11/24/2018, Additional history exists SDOH Screening 06/02/2025 06/02/2024 Colorectal Cancer Screening 10/05/2025 FIT DNA/Cologuard 10/05/2025 10/05/2022 Tobacco Screening 12/13/2025 12/13/2024 Eye Exam 03/14/2026 03/14/2024, 02/17, 03/14/2024, Additional [...] long-term current use of insulin (CMS/HCC) LAB COLOGUARD COLON CANCER SCREEN Routine 10/05/2022 10:15 PM [...] Media Lot # [id number] Lot# Expiration Date [id number] Blood 03/04/2024 3:38 PM EST us Winsome Davis MD POINT OF CARE TEST EN TER/EDIT ORDERABLES Final Result * Lipid Panel with Reflex to Direct LDL (09/16/2023 12:00 AM EDT) Triglycerides 58 <150 mg/dL [facility] Comment:Desirable Triglyceri de: less than 150 mg/dLBorderline High Triglyceride 150-199 mg/dLHigh Triglyceride: 200-499 mg/dLVery High Triglyceride: greater than or equal to 5OO mg/dL Cholesterol 142 <200 mg/dL [facility] Comment:Desirable Cholestero l: less than 200 mg/dLBorderline High Cholesterol: 200-239 mg/dLHigh Cholesterol: greater than 239 mg/dL LDL Cholesterol Calculated 86 <100 mg/dL [facility] Comment:Desirable LDL: less than 100 mg/dLNear Optimal/Above Optimal LDL: 110- 129 mg/dLBorderline High LDL: 130-159 mg/dLHigh LDL: 160-189 mg/dLVery High LDL: greater than or equal to 190 mg/dL HDL Cholesterol 45 >40 mg/dL [facility] Comment:Desirable HDL: great er than 40 mg/dL Note: This HDL assay may give artificially low results in patients with liver disease. Blood 09/16/2023 09/16/2023 Winsome Davis MD LAB BLOOD ORDERABLES Final Result [facility] [address] [place] [phone] * Cologuard?? colon cancer screening (10/05/2022 10:15 PM EDT) Cologuard Result Negative Negative 10/12/19 4:43 AM EDT [facility] (CLIA #:[id number]) Comment: NEGATIVE TEST RESULT. A negative Cologuard result indicates a low likelihood that a colorectal cancer (CRC) or advanced adenoma (adenomatous polyps with more advanced pre-malignant features) is present. The chance that a person with a negative Cologuard test has a colorectal cancer is less than 1 in 1500 (negative predictive value >99.9%) or has an advanced adenoma is less than 5.3% (negative predictive value 94.7%). These data are based on a prospective cross-sectional study of 10,000 individuals at average risk for colorectal cancer who were screened with both Cologuard and colonoscopy. (Baldomero Leiva, N Engl J Med 2014;370(14):4296-1706) The normal value (reference range) for this assay is negative. COLOGUARD RE-SCREENING RECOMMENDATION: Periodic colorectal cancer screening is an important part of preventive healthcare for asymptomatic individuals at average risk for colorectal cancer. Following a negative Cologuard result, the Canadian Cancer Society and U.S. Multi-Society Task Force screening guidelines recommend a Cologuard re-screening interval of 3 years. References: Canadian Cancer Society Guideline for Colorectal Cancer Screening: https://www.cancer.org/cancer/kxqui-bwtxtc-wlskgy/ewxjlawhs-vrxwnhern-nnbskec/ac s-rec ommendations.html.; iTmmy DK, Cesar LUND, Jenny DoddK, Colorectal Cancer Screening: Recommendations for Physicians and Patients from the U.S. Multi-Society Task Force on Colorectal Cancer Screening , Am J Gastroenterology 2017; 112:1552-6917. TEST DESCRIPTION: Composite algorithmic analysis of stool DNA-biomarkers with hemoglobin immunoassay. Quantitative values of individual biomarkers are not [...] Iniguez et al, N Engl J Med 2014;370(14):8936-3361.) Cologuard may produce a false negative or false positive result (no colorectal cancer or precancerous polyp present at colonoscopy follow up). A negative Cologuard test result does not guarantee the absence of CRC or advanced adenoma (pre-cancer). The current Cologuard screening interval is every 3 years. (Canadian Cancer Society and U.S. Multi-Society Task Force). Cologuard performance data in a 10,000 patient pivotal study using colonoscopy as the reference method can be accessed at the following location: www.TheShelf.Patient Safety Technologies/results. Additional description of the Cologuard test process, warnings and precautions can be found at www.cologPierce Global Threat Intelligencerd.com. Stool specimen (specimen) 10/05/2022 10:15 PM EDT 10/07/2022 9:28 PM EDT us Winsome Davis MD LAB MOLECULAR DIAGNOS TICS ORDERABLES Final Result [facility] (CLIA #:[id number]) [place] [address], [place] [phone] * HIV-1/2 Antigen and Antibodies, Fourth Generation, with Reflexes (06/03/2022 8:19 AM EDT) Pathologist [facility] HIV Antigen/Antibody, 4th Generation NON-REAC TIVE NON-REAC TIVE [facility] Comment: HIV-1 antigen and HIV-1/HIV-2 antibodies were not detected. There is no laboratory evidence of HIV infection. PLEASE NOTE: This information has been disclosed to you from records whose confidentiality may be protected by state law. If your state requires such protection, then the state law prohibits you from making any further disclosure of the information without the specific written consent of the person to whom it pertains, or as otherwise permitted by law. A general authorization for the release of medical or other information is NOT sufficient for this purpose. For additional information please refer to http://education.[employer].Patient Safety Technologies/faq/PNU092 (This link is being provided for informational/ educational purposes only.) The performance of this assay has not been clinically validated in patients less than 2 years old. Blood Venous blood specimen / Unknown 06/03/2022 8:19 AM EDT 06/03/2022 8:19 AM EDT Narrative [facility] - 06/04/2022 4:07 PM EDT FASTING:YES FASTING: YES Jovita Kate [facility] LAB BLOOD ORDERABLES Ivy l Result Performing Organization Address City/[facility]/ZIP Co de Phone Number [address], [facility] [place] [phone] [facility] [address] [place] [phone] * Albumin, Random Urine W/O Creatinine (06/03/2022 8:17 AM EDT) Albumin, Urine 0.9 See Note: mg/dL [facility] [place] [facility] Comment: Reference Range: Reference Range Not established [facility] [place] [facility] Comment: The ADA defines abnormalities in albumin excretion as follows: Albuminuria Category Result (mcg/mg creatinine) Normal to Mildly increased <30 Moderately increased 30-299 Severely increased > OR = 300 The ADA recommends that at least two of three specimens collected within a 3-6 month period be abnormal before considering a patient to be within a diagnostic category. Urine Urine specimen obtained by clean catch procedure / Unknown 06/03/2022 8:17 AM EDT 06/03/2022 8:18 AM EDT Narrative [facility] - 06/03/2022 10:43 PM EDT FASTING:YES FASTING: YES Result [facility] Winsome Davis MD LAB URINE ORDERABLES Final Result Performing Organization Address [facility] Co de Phone Number [address], [place] [phone] [facility] [address] [place] [phone] * HEPATITIS C AB W/REFL TO HCV RNA, QN, PCR (07/31/2021 4:19 PM EDT) HEPATITIS C ANTIBODY NON-REACT BR[facility] NON-REACT [facility] INDEX 0.07 <1.00 [facility] Comment: HCV antibody was non-reactive. There is no laboratory evidence of HCV infection. In most cases, no further action is required. However, if recent HCV exposure is suspected, a test for HCV RNA (test code 07712) is suggested. For additional information please refer to http://education.Advisor Client Match/faq/CSS34p6 (This link is being provided for informational/ educational purposes only.) 07/31/2021 4:19 PM EDT Jovita Kate CNM HISTORICAL/NON ORDERABLE LABS Final Result [facility] [address] * DIGITAL BILATERAL SCREEN 1 (01/27/2017 8:02 AM EST) Anatomical Region Laterality Modality Breast Bilateral Mammography 01/27/2017 8:02 AM EST Narrative 01/28/2017 2:42 PM EST Refer to the Notes tab for result details [facility] Procedure: DIGITAL BILATERAL SCREEN 1 Procedure Note Provider, MD Alexa - 05/10/2022 Refer to the Notes tab for result details [facility] Procedure: DIGITAL BILATERAL SCREEN 1 Historical Provider IMG BI PROCEDURES Final R esult from Last 3 Months or Most Recently Relevant to Health Maintenance Insurance [facility] STANDARD DENTAL-[facility] MEDICAID STAND ADULT Care Teams Sat Tutor Relationship Specialty Start Date End Date Winsome Glass MD [address] [place] [phone] PCP - General Family Medicine 09/27/19 Lkaesha Livingston Investigation ClerkForm Setter Supervisor 07/27/23
--- OUTSIDE RECORDS SUMMARY | 2024-12-13 15:11 | XMS_ITS | Encounter Summary ---
Author Organization [employer] Address [address] [place] [address] Care Team Providers Care Health Care Coordinator Name Role Phone Winsome Glass MD Primary Care Provide r Reason for Visit * Reason Onset Date Comments Referral 09/03/2023 Encounter Details Date Type Department Care Team ([facility] st Contact Info) Description 09/03/2023 Telephone [facility] [address] [place], [place] [phone] Winsome Glass MD [address] [place], [place] [phone] Referral Social History Tobacco Use Types Packs/Day [...] 3:37 PM EDT [facility] requesting a referral for pt for a food program. Any questions contact Shanita at [phone] documented in this encounter Plan of Treatment Not on file documented as of this encounter Visit Diagnoses Not on filedocumented in this encounter Additional Health Concerns Assessment Noted Time PHQ-9 Depression Total Score: 9 05/23/19 23 10:50 AM EDT documented as of this encounter Care Teams Health Care Coordinator Relationship Specialty Start Date End Date Winsome Glass MD [address] [place] [phone] PCP - General Family Medicine 09/27/19 Lakesha Livingston Stiff Leg Derrick OperatorReview Appraiser 07/27/23 documented as of this encounter
--- OUTSIDE RECORDS SUMMARY | 2024-12-13 15:11 | XMS_ITS | Encounter Summary ---
Author Organization [employer] Address [address] [facility] [address] [place] [address] Care Team Providers Care Math Interventionist Name Role Phone Winsome Glass MD Primary Care Provide r Reason for Visit * Reason Comments Med Refill Encounter Details Date Type Department Care Team (Late st Contact Info) Description 08/11/2023 Refill [facility] [address] [place], [place] [phone] Winsome Glass MD [address] [place] [address] Onychomycosis Social History Tobacco Use Types Packs/Day [...] documented as of this encounter Care Teams Math Interventionist Relationship Specialty Start Date End Date Winsome Glass MD [address] [place] [phone] PCP - General Family Medicine 09/27/19 Lakesha Livingston Tetryl Nitrator OperatorBilingual Sales Assistant 07/27/23 documented as of this encounter
--- OUTSIDE RECORDS SUMMARY | 2024-12-13 15:11 | XMS_ITS | Encounter Summary ---
Author Organization [employer] Address [address] [facility] 7t [place] [address] Care Team Providers Care Commercial Credit Lead Name Role Phone Winsome Glass MD Primary Care Provide r Reason for Visit * Reason Onset Date Comments Appointment 08/27/2022 Encounter Details Date Type Department Care Team (Late st Contact Info) Description 08/27/2022 Telephone [facility] [address] [place] [address] Rolanda Avelar, DDS [address] [place] [address] Appointment Social History Tobacco Use Types Packs/Day [...] documented as of this encounter Care Teams Commercial Credit Lead Relationship Specialty Start Date End Date Winsome Glass MD [address] [place] [address] PCP - General Family Medicine 09/27/19 Lakesha Livingston Purchasing Department ClerkAssociate Chief Nurse 07/27/23 documented as of this encounter
--- OUTSIDE RECORDS SUMMARY | 2024-12-13 15:11 | XMS_ITS | Encounter Summary ---
Author Organization [employer] Address [address] [facility] [address] [facility] [address] [place] [address] Care Team Providers Care Lead Generation Marketing Manager Name Role Phone Winsome Glass MD Primary Care Provide r Reason for Visit * Reason Onset Date Comments Nurse Triage 09/03/2023 Encounter Details Date Type Department Care Team (Late st Contact Info) Description 09/03/2023 Telephone [facility] [address] [place] [address] Winsome Glass MD [address] [place] [address] Nurse Triage Social History Tobacco Use Types [...] and no extended hours, can seek or [facility] tomorrow for exam .Reviewed [facility] operating hours and that wait times vary. Pt wants OV with PCP. Advised nothing before Physical Exam appt already booked for September. Pt advised can call for cancellations or make sure concerns are brought up during physical exam. Pt wants OV with PCP. Ptadvised [place] send to [place] to book OV if one is available as not able to book anything within 2 weeks and already has pending appt. Protocol Used: Nose Injury (Adult) Protocol-Based Disposition: See in Office or Video Visit Today Future Appointments Date Time Provider Department Center 10/05/2023 2:00 PM Winsome Davis MD MEDICINE [facility] Positive Triage Question: * Tip of [...] answer LVM to return call to [facility] triage line [phone]. * Telephone Encounter - Darling Marcos - 09/03/2023 3:41 PM EDT Symptoms: Fall, Nose Pain Outcome: Schedule an urgent appointment (within 1 hour) or talk to a nurse or provider soon Reason: Severe pain now The caller accepted this outcome Please contact pt @ [phone] documented in this encounter Plan of Treatment Not on file documented as of this encounter Visit Diagnoses Not on filedocumented in this encounter Additional Health Concerns Assessment Noted Time PHQ-9 Depression Total Score: 9 05/23/19 23 10:50 AM EDT documented as of this encounter Care Teams Lead Generation Marketing Manager Relationship Specialty Start Date End Date Winsome Glass MD [address] [place] [phone] PCP - General Family Medicine 09/27/19 Lakesha Livingston Manager OutreachManager Of Security 07/27/23 documented as of this encounter
--- OUTSIDE RECORDS SUMMARY | 2024-12-13 15:11 | XMS_ITS | Encounter Summary ---
Author Organization [employer] Address [address] [facility] 7t [place] [address] Care Team Providers Care Geoscience Specialist Name Role Phone Winsome Glass MD Primary Care Provide r Reason for Visit * Reason Onset Date Comments Referral 10/09/2022 Encounter Details Date Type Department Care Team ([facility] st Contact Info) Description 10/09/2022 Telephone [facility] MEDICINE [address] [place] [address] Winsome Glass MD [address] [place] [address] Referral Social History Tobacco Use Types Packs/Day [...] [facility] due to facility not receiving it. Mechanical Engineering Officer advised is going to be faxed over [...] documented as of this encounter Care Teams Geoscience Specialist Relationship Specialty Start Date End Date Winsome Glass MD [address] [place] [address] PCP - General Family Medicine 09/27/19 Lakesha Livingston Transit Vehicle InspectorCriminal Legal Assistant 07/27/23 documented as of this encounter
--- OUTSIDE RECORDS SUMMARY | 2024-12-13 15:11 | XMS_ITS | Clinical Summary ---
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 LSO w small remanent ovary left due to adhesion Medical History Medical History Date Comments Diabetes mellitus type 2, co ntrolled, with complications ([facility] V24, [facility] V28) DX:Diabetes mellitus type 2, controlled, with complications ([facility]) Family History Medical History Relation Name Comments [...] Last Done Comments Breast Cancer Screening 1970 Colorectal Cancer Screening: Colonoscopy 1970 Diabetes: Annual GFR (Glomer ular Filtration Rate) 1970 Diabetes: Annual Foot Exam 1980 Diabetes: Annual Retina Eye Exam 1980 DTaP,Tdap,and Td Vaccines (1 - Tdap) 1989 Hepatitis B Vaccines (1 of 3 - 19+ 3-dose series) 1989 Pneumococcal Vaccine: 50+ Ye ars (1 of 2 - PCV) 1989 Cervical Cancer Screening: P ap Smear 06/28/1991 RSV Immunization Adult Patie nts (1 - Risk 50-74 years 1-dose series) 2020 Zoster Vaccines (1 of 2) 2020 Cholesterol Screening (Lipid Panel) 01/19/2022 HIV Screening 01/19/2022 Hepatitis C Screening 01/19/2022 Social Influencers of Health Screening 01/19/2022 Diabetes: Annual Urine Albumin-Creatinine Ratio (uACR) 02/01/2022 Diabetes: Blood Sugar Contro l Test (HGBA1C) 02/01/2022 Depression Screening 02/17/2024 COVID-19 Vaccine ( - 2023-2 5 season) 2024 Influenza Vaccine (#1) 2024 HIB Vaccines Aged Out No longer [...] age to complete this topic Care Teams Tree Fruit And Nut Crops Farmer Relationship Specialty Start Date End Date Winsome Glass MD [address] [place] [phone] [facility] - General 09/18/23
--- OUTSIDE RECORDS SUMMARY | 2024-12-13 15:11 | XMS_ITS | Encounter Summary ---
Author Organization [employer] Address [address] 7[address] [place] [address] Care Team Providers Care Real Estate Sales Agent Name Role Phone Winsome Glass MD Primary Care Provide r Encounter Details Date Type Department Care Team (Late st Contact Info) Description 01/27/2023 Orders Only [facility] [address] [place], [place] [phone] Porter Puga MD [address] [place] [address] Social History Tobacco Use Types Packs/Day Years [...] t he electric, gas, oil or water [employer] threatened to shut off services in your [...] on file documented as of this encounter Procedures Procedure Name Priority Date/Time Associated Diagnosis Comments FL UPPER GI W AIR Routine 02/25/2023 8:4 6 AM EST documented in this encounter Results * FL upper GI w air (02/25/2023 8:46 AM EST) Anatomical Region Laterality Modality Body Radiographic Fani ging 02/25/2023 8:46 AM EST Narrative 02/25/2023 4:33 PM EST [place] [id number] Fluoroscopy Report Signed Patient: Rivka Green MR#: [id number] : 1970 Acct:[id number] Age/Sex: 52 / F ADM Date: 02/25/23 Loc: HO.XRAY Attending Dr: Hannah TUTTLE Ordering Physician: Hannah Zapata Date of Service: 02/25/23 Procedure(s): FL upper GI w air Accession Number(s): [id number] cc: Winsome Glass MD; Hannah Zapata EXAMINATION: [...] in OV> 02/25/23 1628 DD/ 0846 TD/TT: Legal File Clerk: Procedure Note Donotuseinterpreter, Image - 02/25/2023 [place] [id number] Fluoroscopy Report Signed Patient: Cassandra Green#: [id number] : 1970Acct:[id number] Age/Sex: 52 / FADM Date: 02/25/23 Loc: HO.XRAY Attending Dr: Hannah TUTTLE Ordering Physician: Hannah Zapata Date of Service: 02/25/23 Procedure(s): FL upper GI w air Accession Number(s): [id number] cc: Winsome Glass MD; Hannah Zapata EXAMINATION: [...] in OV> 02/25/23 1628 DD/ 0846 TD/TT: Legal File Clerk: [facility] External Provider IMG FLU OROSCOPY PROCEDURES Final Result documented in this encounter Visit Diagnoses Not on filedocumented in this encounter Additional Health Concerns Assessment Noted Time PHQ-9 Depression Total Score: 9 05/23/19 23 10:50 AM EDT documented as of this encounter Care Teams Real Estate Sales Agent Relationship Specialty Start Date End Date Winsome Glass MD [address] [place] [address] PCP - General Family Medicine 09/27/19 Lakesha Livingston Supervisor Dimension WarehousePaint Roller Winder 07/27/23 documented as of this encounter
--- OUTSIDE RECORDS SUMMARY | 2024-12-13 15:12 | XMS_ITS | Encounter Summary ---
Author Organization [employer] Address [address] [facility] 7t [place] [address] Care Team Providers Care Geospatial Extractor Analysis Name Role Phone Winsome Glass MD Primary Care Provide r Encounter Details Date Type Department Care Team (Late st Contact Info) Description 04/25/2022 Telephone [facility] MEDICINE [address] [place], [place] [phone] Winsome Glass MD [address] [place] [address] Social History Tobacco Use Types Packs/Day Years [...] on filedocumented in this encounter Care Teams Geospatial Extractor Analysis Relationship Specialty Start Date End Date Winsome Glass MD [address] [place] [address] PCP - General Family Medicine 09/27/19 Lakesha Livingston Survey Questionnaire DesignerVisual Merchandising Specialist 07/27/23 documented as of this encounter
--- OUTSIDE RECORDS SUMMARY | 2024-12-13 15:12 | XMS_ITS | Encounter Summary ---
Author Organization [facility] Address [address] [facility] 7[address] [place] [address] Care Team Providers Care Chief Green Officer Name Role Phone Winsome Glass MD Primary Care Provide r Encounter Details Date Type Department Care Team (Latest Contact Info) Description 05/10/2018 Abstract [facility] CONVERSIONS Dental, Provider, DDS Social [...] on filedocumented in this encounter Care Teams Chief Green Officer Relationship Specialty Start Date End Date Winsome Glass MD [address] [place] [phone] PCP - General Family Medicine 09/27/19 Lakesha Livingston Electro Winning OperatorMosquito Sprayer 07/27/23 documented as of this encounter
--- OUTSIDE RECORDS SUMMARY | 2024-12-13 15:12 | XMS_ITS | Encounter Summary ---
Author Organization [employer] Address [address] [facility] 7t [place] [address] Care Team Providers Care Church History Professor Name Role Phone Winsome Glass MD Primary Care Provide r Encounter Details Date Type Department Care Team (Latest Contact Info) Description 02/24/2020 Abstract [facility] CONVERSIONS Dental, Provider, DDS Social History Tobacco [...] on filedocumented in this encounter Care Teams Church History Professor Relationship Specialty Start Date End Date Winsome Glass MD [address] [place] [id number] PCP - General Family Medicine 09/27/19 Lakesha Livingston Employee Health RnBiomedical Equipment Tech 07/27/23 documented as of this encounter
--- OUTSIDE RECORDS SUMMARY | 2024-12-13 15:12 | XMS_ITS | Encounter Summary ---
Author Organization [employer] Address [address] [facility] [place] [address] Care Team Providers Care Forestry Scientist Name Role Phone Winsome Glass MD Primary Care Provide r Encounter Details Date Type Department Care Team (Late st Contact Info) Description 05/04/2024 Orders Only [facility] MED[facility]INE [address] [place] [address] Winsome Glass MD [address] [place] [address] Social History Tobacco Use Types Packs/Day Years [...] documented as of this encounter Care Teams Forestry Scientist Relationship Specialty Start Date End Date Winsome Glass MD [address] [place] [address] PCP - General Family Medicine 09/27/19 Lakesha Livingston Mix Crusher OperatorManufacturing Quality Engineer 07/27/23 documented as of this encounter
--- OUTSIDE RECORDS SUMMARY | 2024-12-13 15:12 | XMS_ITS | Encounter Summary ---
Author Organization [employer] Address [address] [facility] 7t [place] [address] Care Team Providers Care Practice Specialist Name Role Phone Winsome Glass MD Primary Care Provide r Reason for Visit * Reason Onset Date Comments Durable Medical Equipment 03/06/2022 Encounter Details Date Type Department Care Team (Late st Contact Info) Description 03/06/2022 Telephone [facility] MEDICINE [address] [place] [address] Winsome Glass MD [address] [place] [address] Durable Medical Equipment Social History Tobacco Use [...] on filedocumented in this encounter Care Teams Practice Specialist Relationship Specialty Start Date End Date Winsome Glass MD [address] [place] [id number] PCP - General Family Medicine 09/27/19 Lakesha Livingston Network ProfessionalCeo And Founder 07/27/23 documented as of this encounter
[2024-12-13 18:39] LABS: CT PCR NOT DETECTED (Not Detect.); NG PCR NOT DETECTED (Not Detect.)
[2024-12-14 08:14] LABS: Syphilis Screen Nonreactive (Nonreactive)
[2024-12-14 08:25] LABS: HIV Num 1 0.05 S/CO (0.00-0.99)
[2024-12-16 15:39] LABS: C. Trachomatis RNA TMA, Throat NOT DETECTED; N. gonorrhoeae RNA TMA, Throat NOT DETECTED
[2024-12-16 16:17] LABS: C.Trachomatis RNA TMA, Rectal NOT DETECTED; N.Gonorrhoeae RNA TMA, Rectal NOT DETECTED
== END 2024-12-13 11:44 | disposition home or self-care (01) ==
LOC: HO.HHCL 11:43
PROVIDERS: PCP Internal Medicine; Visit Provider Advanced Practice Midwife
DX: Z11.4 Encounter for screening for human immunodeficiency virus [HIV] (principal); Z20.2 Contact with and (suspected) exposure to infections with a predominantly sexual mode of transmission
CPT/HCPCS: 36415; 86780; 87389; 87491; 87591; 87661